=== PATIENT | male | born 1955 | race African-American/Black ===

== ENCOUNTER 2016-12-17 09:19 | Emergency (ER) | payer BC ==
[2016-12-17] MEDS ORDERED: AMLODIPINE BESYLATE 5 MG TABLET PO ONE (09:50)
--- NOTE | 2016-12-17 10:46 | RADIOLOGY REPORT (SQ) ---
EXAM DESCRIPTION: CT HEAD WITHOUT COMPLETED DATE/TIME: 12/17/2016 10:31 am REASON FOR STUDY: keyes COMPARISON: None. TECHNIQUE: Axial images acquired through the brain without intravenous contrast. Images reviewed wi th bone, brain and subdural windows. Images stored on PACS. All CT scanners at this facility use dose modulation, iterative reconstruction, and/or weight based d osing when appropriate to reduce radiation dose to as low as reasonably achievable (ALARA). [facility]: Dose Right [facility]: CareDose [facility]: Dose Right [facility]: Teradose 4D [facility]: FarmDrop RADIATION DOSE: Up-to-date CT equipment and radiation dose reduction techniques were employed. CTDIv ol: 49.0 mGy. DLP: 881 mGy-cm. mGy. LIMITATIONS: None. FINDINGS: VENTRICLES: Normal size and contour. CEREBRUM: No masses. No hemorrhage. No midline shift. Normal lowry/white matter differentiation. N o evidence for acute infarction. CEREBELLUM: No masses. No hemorrhage. No alteration of density. No evidence for acute infarction. EXTRAAXIAL SPACES: No fluid collections. No masses. ORBITS AND GLOBE: No intra- or extraconal masses. Normal contour of globe without masses. CALVARIUM: No fracture. PARANASAL SINUSES: No fluid or mucosal thickening. SOFT TISSUES: No mass or hematoma. OTHER: No other significant finding. IMPRESSION: No acute intracranial abnormality. TECHNICAL DOCUMENTATION: JOB ID: [id number] Quality ID # [id number]: Final reports with documentation of one or more dose reduction techniques (e.g., Au tomated exposure control, adjustment of the mA and/or kV according to patient size, use of iterative reconstruction technique) 2010 [employer]- All Rights Reserved
[2016-12-17 11:30] LABS: ABSOLUTE BASOPHILS # (AUTO) 0.1 10^3/uL (0.0-0.2); ABSOLUTE EOSINOPHILS # (AUTO) 0.3 10^3/uL (0.0-0.6); ABSOLUTE LYMPHOCYTES (AUTO) 1.4 10^3/uL (0.5-4.7); ABSOLUTE MONOCYTES (AUTO) 0.5 10^3/uL (0.1-1.4); ABSOLUTE NEUT (AUTO) 2.3 10^3/uL (1.7-8.2); BASOPHILS % (AUTO) 1.1 % (0-2); EOSINOPHILS % (AUTO) 5.8 % (0-6); HEMATOCRIT 38.6 % (37.9-51.0); HEMOGLOBIN 12.7 g/dL (13.5-17.0); HGB HCT DIFFERENCE -0.5; LYMPHOCYTES % (AUTO) 31.7 % (13-45); MEAN CORPUSCULAR HEMOGLOBIN 28.4 pg (27.0-33.4); MEAN CORPUSCULAR HGB CONC 32.9 g/dL (32.0-36.0); MEAN CORPUSCULAR VOLUME 87 fl (80-97); MONOCYTES % (AUTO) 11.2 % (3-13); RED BLOOD COUNT 4.46 10^6/uL (4.35-5.55); RED CELL DISTRIBUTION WIDTH 13.7 % (11.5-14.0); SEGMENTED NEUTROPHILS % (AUTO) 50.2 % (42-78); WHITE BLOOD COUNT 4.6 10^3/uL (4.0-10.5)
[2016-12-17 11:35] LABS: APPEARANCE,URINE CLEAR; BILIRUBIN,URINE NEGATIVE (NEGATIVE); GLUCOSE, URINE NEGATIVE (NEGATIVE); KETONES,URINE NEGATIVE (NEGATIVE); LEUKOCYTE ESTERASE,URINE NEGATIVE (NEGATIVE); NITRITE,URINE NEGATIVE (NEGATIVE); PROTEIN,URINE NEGATIVE (NEGATIVE); URINE SPECIFIC GRAVITY 1.004; UROBILINOGEN,URINE NEGATIVE mg/dL (<2.0)
[2016-12-17 11:44] LABS: ALANINE AMINOTRANSFERASE 80 U/L (21-72); ALBUMIN 4.4 g/dL (3.5-5.0); ALKALINE PHOSPHATASE 61 U/L (38-126); ANION GAP 9 (5-19); ASPARTATE AMINO TRANSFERASE 67 U/L (17-59); BILIRUBIN,DIRECT 0.3 mg/dL (0.0-0.4); BILIRUBIN,TOTAL 0.6 mg/dL (0.2-1.3); BLOOD UREA NITROGEN 37 mg/dL (7-20); CALCIUM 9.9 mg/dL (8.4-10.2); CARBON DIOXIDE 28 mmol/L (22-30); CHLORIDE 107 mmol/L (98-107); CREATININE RESULT 2.23 mg/dL (0.52-1.25); GLUCOSE 85 mg/dL (75-110); POTASSIUM 5.1 mmol/L (3.6-5.0); SODIUM 144.4 mmol/L (137-145); TOTAL PROTEIN 7.4 g/dL (6.3-8.2)
--- NOTE | 2016-12-17 13:29 | ER Document Report ---
ED General - General Chief Complaint: Feet Swelling Stated Complaint: LEG PAIN,SWOLLEN ANKLE Time Seen by Provider: 12/17/16 09:48 Mode of Arrival: Ambulatory Information source: Patient Notes: Patient reports mild diffuse headache and bilateral leg swelling for several days. Symptoms are constant. Nothing makes symptoms better or worse. There is no radiation of symptoms. The headache is throbbing. No nausea or vomiting. No chest pain or shortness of breath. TRAVEL OUTSIDE OF THE [place] IN LAST 30 DAYS: No - Related Data Allergies/Adverse Reactions: No Known Allergies Allergy (Verified 12/17/16 09:32) Past Medical History - General Information source: Patient - Social History Smoking Status: Former Smoker Chew tobacco use (# tins/day): No Frequency of alcohol use: Heavy Drug Abuse: None Family History: Reviewed & Not Pertinent Patient has suicidal ideation: No Patient has homicidal ideation: No Renal/ Medical History: Denies: Hx Peritoneal Dialysis Surgical Hx: Other Review of Systems - Review of Systems Constitutional: denies: Chills, Fever Cardiovascular: denies: Chest pain, Palpitations Respiratory: denies: Cough, Short of breath Gastrointestinal: denies: Diarrhea, Vomiting -: Yes All other systems reviewed and negative Physical Exam - Vital signs Vitals: Temp Pulse Resp BP Pulse Ox 98.1 F 52 L 20 199/96 H 100 12/17/16 09:33 12/17/16 09:33 12/17/16 09:33 12/17/16 09:33 12/17/16 09:33 Interpretation: Hypertensive - General General appearance: Appears well, Alert - HEENT Head: Normocephalic, Atraumatic Eyes: Normal Pupils: PERRL - Respiratory Respiratory status: No respiratory distress Chest status: Nontender Breath sounds: Normal Chest palpation: Normal - Cardiovascular Rhythm: Regular Heart sounds: Normal auscultation Murmur: No - Abdominal Inspection: Normal Distension: No distension Bowel sounds: Normal Tenderness: Nontender Organomegaly: No organomegaly - Back Back: Normal, Nontender - Extremities General upper extremity: Normal inspection, Nontender, Normal color, Normal ROM , Normal temperature General lower extremity: Nontender, Edema, Normal color, Normal ROM, Normal temperature, Normal weight bearing. No: Georgina's sign - Neurological Neuro grossly intact: Yes Cognition: Normal Orientation: AAOx4 [place] Coma Scale Eye Opening: Spontaneous [place] Coma Scale Verbal: Oriented [place] Coma Scale Motor: Obeys Commands [place] Coma Scale Total: 15 Speech: Normal Motor strength normal: LUE, RUE, LLE, RLE Sensory: Normal - Psychological Associated symptoms: Normal affect, Normal mood - Skin Skin Temperature: Warm Skin Moisture: Dry Skin Color: Normal Course - Re-evaluation Re-evalutation: 12/17/16 13:26 Discussed the case with Dr. Villaseñor, and the service specialist. He will follow the patient up in the office. Patient is also been arranged for follow-up with primary care. It is unlikely patient is going to be able to be seen within the next couple of days so patient will return to the emergency department for recheck of his potassium and creatinine in 2 days. - Vital Signs Vital signs: Temp Pulse Resp BP Pulse Ox 98.1 F 52 L 20 199/96 H 100 12/17/16 09:33 12/17/16 09:33 12/17/16 09:33 12/17/16 09:33 12/17/16 09:33 - Laboratory Result Diagrams: 12/17/16 11:10 12/17/16 11:10 Laboratory results interpreted by me: 12/17/16 12/17/16 12/17/16 11:10 11:10 11:10 Hgb 12.7 L Potassium 5.1 H BUN 37 H Creatinine 2.23 H Est GFR ( Amer) 37 L Est GFR (Non-Af Amer) 30 L AST 67 H ALT 80 H Urine Blood SMALL H - Diagnostic Test Radiology reviewed: Image reviewed, Reports reviewed - neg head CT Discharge - Discharge Clinical Impression: Poorly-controlled hypertension, Renal insufficiency Condition: Stable Disposition: HOME, SELF-CARE Instructions: Hypertension in ([facility]), Kidney Function Abnormality ([facility] ) Additional Instructions: Please call Dr. Zacarias and Dr. Villaseñor as soon as possible to arrange follow-up. Return here in 2 days for recheck of your kidney function and a recheck of your blood pressure. Prescriptions: Clonidine HCl 0.1 mg PO BID #30 tablet Furosemide [Lasix 20 mg Tablet] 20 mg PO BID 3 Days Forms: Elevated Blood Pressure, Return to Work Referrals: Ziyad VILLASEÑOR MD [ACTIVE STAFF] - Follow up as needed MARIE ZACARIAS MD [ACTIVE STAFF] - Follow up as needed
[2016-12-17] MEDS ORDERED: SODIUM POLYSTYRENE SULFONATE 15 GM/60 ML PO ONE (13:31)
[2016-12-17 13:51] VITALS: BP 196/85
== END 2016-12-17 13:55 | disposition home or self-care (01) ==
LOC: ER 09:19
DX: I10 Essential (primary) hypertension (principal); N28.9 Disorder of kidney and ureter, unspecified; R51 Headache; R60.0 Localized edema; Z87.891 Personal history of nicotine dependence
CPT/HCPCS: 36415; 70450; 80053; 81001; 85025; 99284

== ENCOUNTER 2016-12-19 10:50 | Emergency (ER) | payer BC ==
[2016-12-19] MEDS ORDERED: CLONIDINE HCL 0.1 MG TABLET PO ONE (11:23)
--- NOTE | 2016-12-19 11:24 | ER Document Report ---
HPI - HPI Patient complains to provider of: Recheck Onset: Other - 2 days ago Onset/Duration: Better Quality of pain: No pain Pain Level: Denies Context: Patient states that he was evaluated in the emergency department 2 days ago for lower extremity swelling. Patient states that he had lab work that showed an abnormal potassium as well as renal function test. Patient was advised to follow-up with her primary doctor as well as [facility] door liner. Patient states he does have an appointment with his primary doctor in 3 days. 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 Patient did not get his prescriptions for clonidine or Lasix filled as he just got paid today. Patient states he does plan to get his medications filled today. Patient states that the swelling has improved. Patient denies any chest pain, shortness of breath, abdominal pain, or headache. Associated Symptoms: denies: Chest pain, Nonproductive cough, Productive cough, Headache Exacerbated by: Denies Relieved by: Denies Similar symptoms previously: Yes Recently seen / treated by doctor: Yes - ROS ROS below otherwise negative: Yes Systems Reviewed and Negative: Yes All other systems reviewed and negative - NEURO Neurology: DENIES: Headache - CARDIOVASCULAR Cardiovascular: DENIES: Chest pain - RESPIRATORY Respiratory: DENIES: Trouble Breathing, Coughing - GASTROINTESTINAL Gastrointestinal: DENIES: Abdominal Pain - DERM Skin Color: Normal Skin Problems: None Past Medical History - General Information source: Patient - Social History Smoking Status: Current Every Day Smoker Frequency of alcohol use: Heavy Drug Abuse: None 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 IN LAST 30 DAYS: No - HEENT HEENT: Atraumatic, Normocephalic - NECK Neck: Normal Inspection, Supple - RESPIRATORY Respiratory: Breath Sounds Normal, No Respiratory Distress O2 Sat by Pulse Oximetry: 98 - CARDIOVASCULAR Cardiovascular: Regular Rate, Regular Rhythm, No Murmur - BACK Back: Normal Inspection. negative: CVA Tenderness-Right, CVA Tenderness-Left - MUSCULOSKELETAL/EXTREMETIES Musculoskeletal/Extremeties: MAKAREEM FROM, No Edema - NEURO Level of Consciousness: Awake, Alert, Appropriate Motor/Sensory: No Motor Deficit - DERM Integumentary: Warm, Dry, No Rash Course - Re-evaluation Re-evalutation: 12/19/16 12:[address] Powers regarding patient presentation and evaluation. Reviewed patient's diagnostic tests from previous ER visit as well as today. Does not recommend changing the medications at this time. Does not recommend any additional testing. Advises having patient follow up with Dr. Webb on Thursday as planned and encouraged outpatient follow-up with Dr. Platt as well. Patient states that he has an appointment Thursday with Dr. Webb and plans to call Dr. Platt today to set up an appointment. - Vital Signs Vital signs: Temp Pulse Resp BP Pulse Ox 97.7 F 58 L 18 166/94 H 98 12/19/16 10:56 12/19/16 10:56 12/19/16 10:56 12/19/16 10:56 12/19/16 10:56 - Laboratory Result Diagrams: 12/19/16 11:45 12/19/16 11:45 Laboratory results interpreted by me: 12/19/16 12:43 Labs- Entire Visit 12/19/16 12/19/16 11:45 11:45 WBC 5.4 RBC 4.11 L Hgb 11.7 L Hct 35.2 L MCV 86 MCH 28.5 MCHC 33.3 RDW 13.4 Plt Count 186 Seg Neutrophils % 51.8 Lymphocytes % 31.5 Monocytes % 10.2 Eosinophils % 5.7 Basophils % 0.8 Absolute Neutrophils 2.8 Absolute Lymphocytes 1.7 Absolute Monocytes 0.6 Absolute Eosinophils 0.3 Absolute Basophils 0.0 Sodium 144.1 Potassium 5.1 H Chloride 107 Carbon Dioxide 31 H Anion Gap 6 BUN 23 H Creatinine 2.16 H Est GFR ( Amer) 38 L Est GFR (Non-Af Amer) 31 L Glucose 82 Calcium 9.4 Total Bilirubin 0.3 Direct Bilirubin 0.3 Indirect Bilirubin Not Reportable Neonat Total Bilirubin Not Reportable AST 45 ALT 64 Alkaline Phosphatase 61 Total Protein 6.8 Albumin 4.0 reviewed labs from pt's previous ER visit Discharge - Discharge Clinical Impression: Renal insufficiency, Poorly-controlled hypertension Condition: Stable Disposition: HOME, SELF-CARE Instructions: High Blood Pressure, Requiring Treatment ([facility]), Kidney Function Abnormality ([facility]) Additional Instructions: Return immediately for any new or worsening symptoms Followup with Dr Webb on Thursday as planned Follow up with Dr Platt, call today for a follow up appointment Get your medications filled today and take as prescribed Forms: Elevated Blood Pressure, Return to Work Referrals: Ziyad PLATT MD [ACTIVE STAFF] - Follow up in 3-5 days MARIE WEBB MD [ACTIVE STAFF] - 12/22/16
[2016-12-19 12:01] LABS: ABSOLUTE EOSINOPHILS # (AUTO) 0.3 10^3/uL (0.0-0.6); ABSOLUTE LYMPHOCYTES (AUTO) 1.7 10^3/uL (0.5-4.7); ABSOLUTE MONOCYTES (AUTO) 0.6 10^3/uL (0.1-1.4); ABSOLUTE NEUT (AUTO) 2.8 10^3/uL (1.7-8.2); BASOPHILS % (AUTO) 0.8 % (0-2); EOSINOPHILS % (AUTO) 5.7 % (0-6); HEMATOCRIT 35.2 % (37.9-51.0); HEMOGLOBIN 11.7 g/dL (13.5-17.0); HGB HCT DIFFERENCE -0.1; LYMPHOCYTES % (AUTO) 31.5 % (13-45); MEAN CORPUSCULAR HEMOGLOBIN 28.5 pg (27.0-33.4); MEAN CORPUSCULAR HGB CONC 33.3 g/dL (32.0-36.0); MEAN CORPUSCULAR VOLUME 86 fl (80-97); MONOCYTES % (AUTO) 10.2 % (3-13); RED BLOOD COUNT 4.11 10^6/uL (4.35-5.55); RED CELL DISTRIBUTION WIDTH 13.4 % (11.5-14.0); SEGMENTED NEUTROPHILS % (AUTO) 51.8 % (42-78); WHITE BLOOD COUNT 5.4 10^3/uL (4.0-10.5)
[2016-12-19 12:13] LABS: ALANINE AMINOTRANSFERASE 64 U/L (21-72); ALKALINE PHOSPHATASE 61 U/L (38-126); ANION GAP 6 (5-19); ASPARTATE AMINO TRANSFERASE 45 U/L (17-59); BILIRUBIN,DIRECT 0.3 mg/dL (0.0-0.4); BILIRUBIN,TOTAL 0.3 mg/dL (0.2-1.3); BLOOD UREA NITROGEN 23 mg/dL (7-20); CALCIUM 9.4 mg/dL (8.4-10.2); CARBON DIOXIDE 31 mmol/L (22-30); CHLORIDE 107 mmol/L (98-107); CREATININE RESULT 2.16 mg/dL (0.52-1.25); GLUCOSE 82 mg/dL (75-110); POTASSIUM 5.1 mmol/L (3.6-5.0); SODIUM 144.1 mmol/L (137-145); TOTAL PROTEIN 6.8 g/dL (6.3-8.2)
[2016-12-19 13:57] VITALS: BP 174/94
== END 2016-12-19 13:10 | disposition home or self-care (01) ==
LOC: ER 10:50
DX: N28.9 Disorder of kidney and ureter, unspecified (principal); I10 Essential (primary) hypertension; T46.5X6A Underdosing of other antihypertensive drugs, initial encounter; T50.1X6A Underdosing of loop [high-ceiling] diuretics, initial encounter; Z91.120 Patient's intentional underdosing of medication regimen due to financial hardship; Z91.14 Patient's other noncompliance with medication regimen; F17.200 Nicotine dependence, unspecified, uncomplicated
CPT/HCPCS: 36415; 80053; 85025; 99283

== ENCOUNTER 2017-02-21 10:06 | Inpatient (IN) | payer BC ==
--- NOTE | 2017-02-21 10:20 | ER Document Report ---
ED General - General Chief Complaint: Abnormal Lab Results Stated Complaint: ABNORMAL LABS Time Seen by Provider: 02/21/17 10:12 Mode of Arrival: Ambulatory Information source: Patient Notes: 61-year-old male received call from the lab stating he had potassium of 7. Patient is asymptomatic TRAVEL OUTSIDE OF THE [place] IN LAST 30 DAYS: No - Related Data Allergies/Adverse Reactions: No Known Allergies Allergy (Verified 02/21/17 10:11) Past Medical History - Social History Smoking Status: Former Smoker Chew tobacco use (# tins/day): No Frequency of alcohol use: Social Drug Abuse: None, Marijuana Family History: Reviewed & Not Pertinent - Past Medical History Cardiac Medical History: Reports: Hx Hypertension Renal/ Medical History: Denies: Hx Peritoneal Dialysis Physical Exam - Vital signs Vitals: Temp Pulse Resp BP Pulse Ox 97.9 F 52 L 16 160/84 H 100 02/21/17 10:12 02/21/17 10:12 02/21/17 10:12 02/21/17 10:12 02/21/17 10:12 Course - Vital Signs Vital signs: Temp Pulse Resp BP Pulse Ox 97.9 F 52 L 16 160/84 H 100 02/21/17 10:12 02/21/17 10:12 02/21/17 10:12 02/21/17 10:12 02/21/17 10:12
--- NOTE | 2017-02-21 10:31 | ER Document Report ---
ED Medical Screen (RME) - General Chief Complaint: Abnormal Lab Results Stated Complaint: ABNORMAL LABS Time Seen by Provider: 02/21/17 10:12 Mode of Arrival: Ambulatory Information source: Patient Notes: 61-year-old male received call from the lab stating he had potassium of 7. Patient is asymptomatic I have greeted and performed a rapid initial assessment of this patient. A comprehensive ED assessment and evaluation of the patient, analysis of test results and completion of the medical decision making process will be conducted by additional ED providers. PHYSICAL EXAMINATION: GENERAL: Well-appearing, well-nourished and in no acute distress. HEAD: Atraumatic, normocephalic. EYES: Pupils equal round extraocular movements intact, conjunctiva are normal. ENT: Nares patent NECK: Normal range of motion LUNGS: No respiratory distress Musculoskeletal: Normal range of motion NEUROLOGICAL: Normal speech, normal gait. PSYCH: Normal mood, normal affect. SKIN: Warm, Dry, normal turgor, no rashes or lesions noted. TRAVEL OUTSIDE OF THE [place] IN LAST 30 DAYS: No - Related Data Allergies/Adverse Reactions: No Known Allergies Allergy (Verified 02/21/17 10:11) Past Medical History - Social History Chew tobacco use (# tins/day): No Frequency of alcohol use: Social Drug Abuse: None, Marijuana - Past Medical History Cardiac Medical History: Reports: Hx Hypertension Renal/ Medical History: Denies: Hx Peritoneal Dialysis - Immunizations History of Influenza Vaccine for 02/2017 - 07/2017 Season: Refused Physical Exam - Vital signs Vitals: Temp Pulse Resp BP Pulse Ox 97.9 F 52 L 16 160/84 H 100 02/21/17 10:12 02/21/17 10:12 02/21/17 10:12 02/21/17 10:12 02/21/17 10:12 Course - Vital Signs Vital signs: Temp Pulse Resp BP Pulse Ox 97.9 F 52 L 16 160/84 H 100 02/21/17 10:12 02/21/17 10:12 02/21/17 10:12 02/21/17 10:12 02/21/17 10:12
[2017-02-21 10:58] LABS: ABSOLUTE BASOPHILS # (AUTO) 0.1 10^3/uL (0.0-0.2); ABSOLUTE EOSINOPHILS # (AUTO) 0.3 10^3/uL (0.0-0.6); ABSOLUTE LYMPHOCYTES (AUTO) 1.1 10^3/uL (0.5-4.7); ABSOLUTE MONOCYTES (AUTO) 0.5 10^3/uL (0.1-1.4); ABSOLUTE NEUT (AUTO) 3.2 10^3/uL (1.7-8.2); BASOPHILS % (AUTO) 1.2 % (0-2); EOSINOPHILS % (AUTO) 6.3 % (0-6); HEMATOCRIT 32.2 % (37.9-51.0); HGB HCT DIFFERENCE 0.8; MEAN CORPUSCULAR HEMOGLOBIN 28.4 pg (27.0-33.4); MEAN CORPUSCULAR HGB CONC 34.1 g/dL (32.0-36.0); MEAN CORPUSCULAR VOLUME 83 fl (80-97); MONOCYTES % (AUTO) 9.7 % (3-13); RED BLOOD COUNT 3.87 10^6/uL (4.35-5.55); RED CELL DISTRIBUTION WIDTH 13.4 % (11.5-14.0); SEGMENTED NEUTROPHILS % (AUTO) 60.8 % (42-78); WHITE BLOOD COUNT 5.2 10^3/uL (4.0-10.5)
[2017-02-21] MEDS: NORMAL SALINE 1000 ML 1,000 ML IV PRN ×2 (10:58→10:59)
[2017-02-21 11:11] LABS: ALANINE AMINOTRANSFERASE 44 U/L (21-72); ALBUMIN 4.6 g/dL (3.5-5.0); ALKALINE PHOSPHATASE 62 U/L (38-126); ANION GAP 10 (5-19); ASPARTATE AMINO TRANSFERASE 30 U/L (17-59); BILIRUBIN,DIRECT 0.3 mg/dL (0.0-0.4); BILIRUBIN,TOTAL 0.6 mg/dL (0.2-1.3); BLOOD UREA NITROGEN 41 mg/dL (7-20); CALCIUM 10.3 mg/dL (8.4-10.2); CARBON DIOXIDE 25 mmol/L (22-30); CHLORIDE 110 mmol/L (98-107); CREATININE RESULT 2.71 mg/dL (0.52-1.25); GLUCOSE 85 mg/dL (75-110); MAGNESIUM 1.9 mg/dL (1.6-2.3); SODIUM 145.2 mmol/L (137-145); TOTAL PROTEIN 7.6 g/dL (6.3-8.2)
[2017-02-21] MEDS ORDERED: ALBUTEROL SULFATE 0.083% NEB 2.5 MG/3 ML AMPUL NEB ONE (11:15)
[2017-02-21] MEDS ORDERED: SODIUM POLYSTYRENE SULFONATE 15 GM/60 ML PO ONE (11:15)
[2017-02-21] MEDS ORDERED: DEXTROSE 50%-WATER 25 GM/50 ML DISP.SYRIN IV ONE (11:15)
[2017-02-21] MEDS ORDERED: INSULIN REG, HUMAN 100 UNIT/ML 3 ML VIAL (PYX) IV ONE (11:15)
[2017-02-21] MEDS ORDERED: CALCIUM GLUCONATE 1000 MG/10 ML INJ IV ONE (11:15)
[2017-02-21 13:56] LABS: ANION GAP 13 (5-19); BLOOD UREA NITROGEN 38 mg/dL (7-20); CARBON DIOXIDE 20 mmol/L (22-30); CHLORIDE 114 mmol/L (98-107); CREATININE RESULT 2.55 mg/dL (0.52-1.25); GLUCOSE 74 mg/dL (75-110); SODIUM 146.6 mmol/L (137-145)
[2017-02-21 14:09] LABS: POTASSIUM 4.8 mmol/L (3.6-5.0)
--- NOTE | 2017-02-21 14:21 | ER Document Report ---
ED General - General Chief Complaint: Abnormal Lab Results Stated Complaint: ABNORMAL LABS Time Seen by Provider: 02/21/17 10:12 Mode of Arrival: Ambulatory TRAVEL OUTSIDE OF THE [place] IN LAST 30 DAYS: No - HPI Patient complains to provider of: Hyperkalemia Notes: Patient coming in for evaluation of hyperkalemia. Patient had outpatient laboratory studies done by his PCP states his potassium was 7 patient was encouraged to come to the ER. Patient has a history of renal insufficiency patient otherwise denies any other symptoms denies any changes in diet denies any changes in his medications. Patient is resting comfortably upon my evaluation. - Related Data Allergies/Adverse Reactions: No Known Allergies Allergy (Verified 02/21/17 10:11) Home Medications: Current Home Medications Amlodipine Besylate [Norvasc 5 mg Tablet] 5 mg PO DAILY 02/21/17 [History] Clonidine HCl [Catapres 0.1 mg Tablet] 0.1 mg PO Q12 02/21/17 [History] Tamsulosin HCl [Flomax 0.4 mg Cap.sr] 0.4 mg PO DAILY 02/21/17 [History] Past Medical History - General Information source: Patient - Social History Smoking Status: Former Smoker Chew tobacco use (# tins/day): No Frequency of alcohol use: Social Drug Abuse: None, Marijuana Family History: Reviewed & Not Pertinent - Past Medical History Cardiac Medical History: Reports: Hx Hypertension Renal/ Medical History: Denies: Hx Peritoneal Dialysis Review of Systems - Review of Systems Constitutional: Other - Hyperkalemia EENT: No symptoms reported Cardiovascular: No symptoms reported Respiratory: No symptoms reported Gastrointestinal: No symptoms reported Genitourinary: No symptoms reported Male Genitourinary: No symptoms reported Musculoskeletal: No symptoms reported Skin: No symptoms reported Hematologic/Lymphatic: No symptoms reported Neurological/Psychological: No symptoms reported Physical Exam - Vital signs Vitals: Temp Pulse Resp BP Pulse Ox 97.9 F 52 L 16 160/84 H 100 02/21/17 10:12 02/21/17 10:12 02/21/17 10:12 02/21/17 10:12 02/21/17 10:12 Interpretation: Normal - General General appearance: Appears well, Alert - HEENT Head: Normocephalic, Atraumatic Eyes: Normal Pupils: PERRL - Respiratory Respiratory status: No respiratory distress Chest status: Nontender Breath sounds: Normal Chest palpation: Normal - Cardiovascular Rhythm: Regular Heart sounds: Normal auscultation Murmur: No - Abdominal Inspection: Normal Distension: No distension Bowel sounds: Normal Tenderness: Nontender Organomegaly: No organomegaly - Back Back: Normal, Nontender - Extremities General upper extremity: Normal inspection, Nontender, Normal color, Normal ROM , Normal temperature General lower extremity: Normal inspection, Nontender, Normal color, Normal ROM , Normal temperature, Normal weight bearing. No: Georgina's sign - Neurological Neuro grossly intact: Yes Cognition: Normal Orientation: AAOx4 [place] Coma Scale Eye Opening: Spontaneous [place] Coma Scale Verbal: Oriented [place] Coma Scale Motor: Obeys Commands [place] Coma Scale Total: 15 Speech: Normal Motor strength normal: LUE, RUE, LLE, RLE Sensory: Normal - Psychological Associated symptoms: Normal affect, Normal mood - Skin Skin Temperature: Warm Skin Moisture: Dry Skin Color: Normal Course - Re-evaluation Re-evalutation: 02/21/17 15:53 Patient is EKG shows signs of hyperkalemia with peaked T waves. Patient was started on hyper K medications insulin dextrose albuterol also was given a dose of Kayexalate also was given calcium. Repeat EKG showed improvement in T waves. Laboratory studies returned showing potassium 6 IV fluids was continued. Discussed with covering PCP Dr. Grey who agrees with admission at this time till treatment for hyperkalemia - Vital Signs Vital signs: Temp Pulse Resp BP Pulse Ox 97.9 F 52 L 21 H 167/79 H 100 02/21/17 10:12 02/21/17 10:12 02/21/17 14:01 02/21/17 14:01 02/21/17 14:01 - Laboratory Result Diagrams: 02/21/17 10:35 02/21/17 13:24 Laboratory results interpreted by me: 02/21/17 02/21/17 02/21/17 10:35 10:35 13:24 RBC 3.87 L Hgb 11.0 L Hct 32.2 L Eosinophils % 6.3 H Sodium 145.2 H 146.6 H Potassium 6.0 H* Chloride 110 H 114 H Carbon Dioxide 20 L BUN 41 H 38 H Creatinine 2.71 H 2.55 H Est GFR ( Amer) 29 L 31 L Est GFR (Non-Af Amer) 24 L 26 L Glucose 74 L Calcium 10.3 H Discharge - Discharge Clinical Impression: Hyperkalemia Condition: Good Disposition: ADMITTED OBSERVATION Admitting Provider: Jon Grey Unit Admitted: Telemetry
[2017-02-21] MEDS ORDERED: AMLODIPINE BESYLATE 5 MG TABLET PO ONE (18:00)
[2017-02-21 19:04] LABS: APPEARANCE,URINE CLEAR; BILIRUBIN,URINE NEGATIVE (NEGATIVE); GLUCOSE, URINE NEGATIVE (NEGATIVE); KETONES,URINE NEGATIVE (NEGATIVE); LEUKOCYTE ESTERASE,URINE NEGATIVE (NEGATIVE); NITRITE,URINE NEGATIVE (NEGATIVE); PROTEIN,URINE NEGATIVE (NEGATIVE); URINE SPECIFIC GRAVITY 1.005; UROBILINOGEN,URINE NEGATIVE mg/dL (<2.0)
[2017-02-21 20:33] LABS: ANION GAP 7 (5-19); BLOOD UREA NITROGEN 38 mg/dL (7-20); CALCIUM 9.8 mg/dL (8.4-10.2); CARBON DIOXIDE 23 mmol/L (22-30); CHLORIDE 111 mmol/L (98-107); CREATININE RESULT 2.63 mg/dL (0.52-1.25); GLUCOSE 89 mg/dL (75-110); POTASSIUM 4.4 mmol/L (3.6-5.0)
[2017-02-21] MEDS: CLONIDINE HCL 0.1 MG TABLET PO SCH (21:31)
--- NOTE | 2017-02-21 22:09 | PDOC H&P ---
History of Present Illness Admission Date/PCP: 02/21/17 17:41 MARIE ZACARIAS MD Patient complains of: Hyperkalemia History of Present Illness: TOBY COLLINS is a 61 year old male patient of Dr Zacarias who was directed to the ED after [facility] called in critical serum potassium level about 7.0 with serum creatinine over 2.0. Patient has history of hypertension and claimed compliance with his medication and dietary restriction but admitted to eating Banana and drink orange juice regularly. He denied any palpitation, chest pain, dizziness, flank pain or blood in his urine. He admitted to intermittent headache. Patient denied alcohol, former smoker and admitted to marijuana recreational usage. Patient reported that water medicine was just added to his anti hypertensive medication regimen. Past Medical History Cardiac Medical History: Reports: Hypertension Social History Smoking Status: Former Smoker Drugs: Marijuana Family History Family History: Reviewed & Not Pertinent Parental Family History Reviewed: Yes Children Family History Reviewed: Yes Sibling(s) Family History Reviewed.: Yes Medication/Allergy Home Medications: Amlodipine Besylate [Norvasc 5 mg Tablet] 5 mg PO DAILY 02/21/17 Clonidine HCl [Catapres 0.1 mg Tablet] 0.1 mg PO Q12 02/21/17 Tamsulosin HCl [Flomax 0.4 mg Cap.sr] 0.4 mg PO DAILY 02/21/17 Allergies/Adverse Reactions: No Known Allergies Allergy (Verified 02/21/17 10:11) Review of Systems Constitutional: ABSENT: chills, fever(s), headache(s), weight gain, weight loss Eyes: ABSENT: visual disturbances Ears: ABSENT: hearing changes Nose, Mouth, and Throat: PRESENT: headache(s) - intermittently Cardiovascular: ABSENT: chest pain, dyspnea on exertion, edema, orthropnea, palpitations Respiratory: ABSENT: cough, hemoptysis Gastrointestinal: ABSENT: abdominal pain, constipation, diarrhea, hematemesis, hematochezia, nausea, vomiting Genitourinary: ABSENT: dysuria, hematuria Musculoskeletal: ABSENT: joint swelling Integumentary: ABSENT: rash, wounds Neurological: ABSENT: abnormal gait, abnormal speech, confusion, dizziness, focal weakness, syncope Psychiatric: ABSENT: anxiety, depression, homidical ideation, suicidal ideation Endocrine: ABSENT: cold intolerance, heat intolerance, menstrual abnormalities, polydipsia, polyuria Hematologic/Lymphatic: ABSENT: easy bleeding, easy bruising, lymphadenopathy Allergic/Immunologic: ABSENT: seasonal rhinorrhea Physical Exam Vital Signs: Temp Pulse Resp BP Pulse Ox 98.0 F 52 L 16 166/84 H 100 02/21/17 19:52 02/21/17 19:52 02/21/17 19:52 02/21/17 19:52 02/21/17 19:52 Intake & Output 02/20/17 02/21/17 02/22/17 06:59 06:59 06:59 Intake Total 690 Balance 690 General appearance: PRESENT: no acute distress, cooperative Head exam: PRESENT: atraumatic, normocephalic Eye exam: PRESENT: conjunctiva pink, EOMI, PERRLA. ABSENT: scleral icterus Ear exam: PRESENT: normal external ear exam Mouth exam: PRESENT: moist Teeth exam: PRESENT: poor dentation Throat exam: ABSENT: post pharyngeal erythema, tonsillar erythema, tonsillar exudate, tonsillogmegaly, other Neck exam: PRESENT: full ROM. ABSENT: carotid bruit, JVD, lymphadenopathy, thyromegaly Respiratory exam: PRESENT: clear to auscultation tessa Cardiovascular exam: PRESENT: RRR. ABSENT: diastolic murmur, rubs, systolic murmur Pulses: PRESENT: normal dorsalis pedis pul, +2 pedal pulses bilateral Vascular exam: PRESENT: normal capillary refill. ABSENT: pallor GI/Abdominal exam: PRESENT: normal bowel sounds, soft. ABSENT: distended, guarding, mass, organolmegaly, rebound, tenderness Rectal exam: PRESENT: deferred Extremities exam: ABSENT: pedal edema Musculoskeletal exam: PRESENT: normal inspection Neurological exam: PRESENT: alert, awake, oriented to person, oriented to place , oriented to time, oriented to situation, CN II-XII grossly intact. ABSENT: motor sensory deficit Psychiatric exam: PRESENT: appropriate affect, normal mood. ABSENT: homicidal ideation, suicidal ideation Skin exam: PRESENT: dry, intact, warm. ABSENT: cyanosis, rash Results Laboratory Results: 02/21/17 20:05 02/21/17 02/21/17 18:42 20:05 Sodium 141.0 Potassium 4.4 Chloride 111 H Carbon Dioxide 23 Anion Gap 7 BUN 38 H Creatinine 2.63 H Est GFR ( Amer) 30 L Est GFR (Non-Af Amer) 25 L Glucose 89 Calcium 9.8 Urine Color STRAW Urine Appearance CLEAR Urine pH 5.0 Ur Specific [place] 1.005 Urine Protein NEGATIVE Urine Glucose (UA) NEGATIVE Urine Ketones NEGATIVE Urine Blood SMALL H Urine Nitrite NEGATIVE Ur Leukocyte Esterase NEGATIVE Urine WBC (Auto) 2 Urine RBC (Auto) 1 Assessment & Plan - Diagnosis (1) Hyperkalemia Is this a current diagnosis for this admission?: Yes Plan: See admitting covering attending physician orders. (2) CKD (chronic kidney disease) stage 3, GFR 30-59 ml/min Is this a current diagnosis for this admission?: Yes Plan: See admitting covering attending physician orders. (3) HTN (hypertension) Qualifiers: Hypertension type: essential hypertension Qualified Code(s): I10 - Essential (primary) hypertension Is this a current diagnosis for this admission?: Yes Plan: See admitting covering attending physician orders. (4) BPH with obstruction/lower urinary tract symptoms Is this a current diagnosis for this admission?: Yes Plan: See admitting covering attending physician orders. - Time Time Spent: 50 to 70 Minutes Medications reviewed and adjusted accordingly: Yes Anticipated discharge: Home Within: within 24 hours - Plan Summary Plan Summary: See admitting covering attending physician orders.
[2017-02-21] MEDS ORDERED: ACETAMINOPHEN 325 MG TABLET PO PRN (22:14)
--- NOTE | 2017-02-21 23:46 | RADIOLOGY REPORT (SQ) ---
EXAM DESCRIPTION: U/S RETROPERITON (RENAL/AORTA) COMPLETED DATE/TIME: 02/21/2017 7:48 pm REASON FOR STUDY: Renal failure with Hyperkalemia, HTN COMPARISON: None. TECHNIQUE: Dynamic and static grayscale images acquired of the kidneys and bladder and recorded on P ACS. Additional selected color Doppler and spectral images recorded. LIMITATIONS: None. FINDINGS: RIGHT KIDNEY: Normal size. Normal echogenicity. No solid or suspicious masses. Mildly pro minent renal pelvis. No calcifications. LEFT KIDNEY: Normal size. Normal echogenicity. No solid or suspicious masses. Mildly prominent kristi l pelvis. No calcifications. BLADDER: Mildly distended demonstrating layering debris. No masses. OTHER FINDINGS: No other significant finding. IMPRESSION: Mildly prominent renal pelves without evidence of ureteric obstruction. Mildly distende d bladder demonstrating layering debris. TECHNICAL DOCUMENTATION: JOB ID: [id number] [employer]- All Rights Reserved
[2017-02-22 07:26] LABS: ANION GAP 12 (5-19); BLOOD UREA NITROGEN 36 mg/dL (7-20); CARBON DIOXIDE 22 mmol/L (22-30); CHLORIDE 112 mmol/L (98-107); CREATININE RESULT 2.68 mg/dL (0.52-1.25); GLUCOSE 94 mg/dL (75-110); POTASSIUM 5.3 mmol/L (3.6-5.0); SODIUM 145.8 mmol/L (137-145)
[2017-02-22] MEDS ORDERED: AMLODIPINE BESYLATE 5 MG TABLET PO SCH (10:00)
[2017-02-22] MEDS: CLONIDINE HCL 0.1 MG TABLET PO SCH (10:04)
[2017-02-22] MEDS: TAMSULOSIN HCL 0.4 MG CAP.SR.24H PO SCH (10:04)
--- NOTE | 2017-02-22 12:18 | PDOC PROGRESS REPORT ---
Subjective Progress Note for:: 02/22/17 Subjective:: Patient self administer his home medication this morning at about 9:30am! He denied any chest pain or difficulty with breathing. No nausea or vomiting. No abdominal pain. No fever or chills. Urine output fairly normal. Physical Exam Vital Signs: Temp Pulse Resp BP Pulse Ox 97.8 F 48 L 15 172/86 H 100 02/22/17 07:41 02/22/17 07:41 02/22/17 07:41 02/22/17 07:41 02/22/17 07:41 Intake & Output 02/21/17 02/22/17 02/23/17 06:59 06:59 06:59 Intake Total 1175 Balance 1175 General appearance: PRESENT: no acute distress, cooperative Head exam: PRESENT: atraumatic, normocephalic Eye exam: PRESENT: conjunctiva pink Mouth exam: PRESENT: moist Teeth exam: PRESENT: poor dentation Respiratory exam: PRESENT: clear to auscultation tessa Cardiovascular exam: PRESENT: RRR. ABSENT: diastolic murmur, rubs, systolic murmur Vascular exam: PRESENT: normal capillary refill. ABSENT: pallor GI/Abdominal exam: PRESENT: normal bowel sounds, soft. ABSENT: distended, guarding, mass, organolmegaly, rebound, tenderness Musculoskeletal exam: PRESENT: normal inspection Neurological exam: PRESENT: alert, awake, oriented to person, oriented to place , oriented to time, oriented to situation, CN II-XII grossly intact. ABSENT: motor sensory deficit Psychiatric exam: PRESENT: appropriate affect, normal mood. ABSENT: homicidal ideation, suicidal ideation Results Laboratory Results: 02/22/17 06:45 02/21/17 02/21/17 02/22/17 18:42 20:05 06:45 Sodium 141.0 145.8 H Potassium 4.4 5.3 H Chloride 111 H 112 H Carbon Dioxide 23 22 Anion Gap 7 12 BUN 38 H 36 H Creatinine 2.63 H 2.68 H Est GFR ( Amer) 30 L 30 L Est GFR (Non-Af Amer) 25 L 24 L Glucose 89 94 Calcium 9.8 10.0 Urine Color STRAW Urine Appearance CLEAR Urine pH 5.0 Ur Specific [place] 1.005 Urine Protein NEGATIVE Urine Glucose (UA) NEGATIVE Urine Ketones NEGATIVE Urine Blood SMALL H Urine Nitrite NEGATIVE Ur Leukocyte Esterase NEGATIVE Urine WBC (Auto) 2 Urine RBC (Auto) 1 Impressions: Renal Ultrasound 02/21/17 00:00 IMPRESSION: Mildly prominent renal pelves without evidence of ureteric obstruction. Mildly distended bladder demonstrating layering debris. Assessment & Plan - Diagnosis (1) Hyperkalemia Is this a current diagnosis for this admission?: Yes (2) CKD (chronic kidney disease) stage 3, GFR 30-59 ml/min Is this a current diagnosis for this admission?: Yes (3) HTN (hypertension) Qualifiers: Hypertension type: essential hypertension Qualified Code(s): I10 - Essential (primary) hypertension Is this a current diagnosis for this admission?: Yes (4) BPH with obstruction/lower urinary tract symptoms Is this a current diagnosis for this admission?: Yes (5) Bradyarrhythmia Is this a current diagnosis for this admission?: Yes Plan: See covering attending physician orders. - Time Time Spent with patient: 25-34 minutes Medications reviewed and adjusted accordingly: Yes Anticipated discharge: Home Within: Other - Plan Summary Plan Summary: Patient will receive repeat dosing with Kayexalate 60mg x 1 dose with repeat BMP at 6pm to evaluate need for further dosing. Increase Amlodipine to 10 mg po daily. Start on Finasteride 0.5mg po daily based on BPH and renal US findings.
[2017-02-22] MEDS ORDERED: SODIUM POLYSTYRENE SULFONATE 15 GM/60 ML PO ONE (13:30)
[2017-02-22] MEDS ORDERED: AMLODIPINE BESYLATE 5 MG TABLET PO ONE (13:30)
[2017-02-22 13:36] LABS: CREATINE KINASE MB 4.67 ng/mL (<4.55)
[2017-02-22 13:39] LABS: TROPONIN I < 0.012 ng/mL
[2017-02-22] MEDS: FINASTERIDE 5 MG TABLET PO SCH (13:45)
--- NOTE | 2017-02-22 16:57 | EKG REPORT ---
SEVERITY:- ABNORMAL ECG - SINUS BRADYCARDIA CONSIDER ANTEROSEPTAL INFARCT TALL T, CONSIDER METABOLIC/ISCHEMIC ABNRM : Confirmed by: Lin Santos MD 22-Feb-2017 16:56:15
--- NOTE | 2017-02-22 16:57 | EKG REPORT ---
SEVERITY:- ABNORMAL ECG - SINUS ARRHYTHMIA, RATE [id number] MULTIPLE VENTRICULAR PREMATURE COMPLEXES : Confirmed by: Lin Santos MD 22-Feb-2017 16:56:09
[2017-02-23] MEDS: AMLODIPINE BESYLATE 10 MG TABLET PO SCH (09:15)
[2017-02-23] MEDS: TAMSULOSIN HCL 0.4 MG CAP.SR.24H PO SCH (09:15)
[2017-02-23] MEDS: FINASTERIDE 5 MG TABLET PO SCH (13:37)
--- NOTE | 2017-02-23 14:25 | PDOC PROGRESS REPORT ---
Subjective Progress Note for:: 02/23/17 Subjective:: Patient is currently doing well. Patient was admitted because of the elevated potassium and chronic kidney diseasePatient's denied any chest pain denied any shortness of breathVisit was given Kayexalate Physical Exam Vital Signs: Temp Pulse Resp BP Pulse Ox 98.0 F 64 16 181/90 H 100 02/23/17 11:40 02/23/17 11:40 02/23/17 11:40 02/23/17 11:40 02/23/17 11:40 Intake & Output 02/22/17 02/23/17 02/24/17 06:59 06:59 06:59 Intake Total 1175 1760 Balance 1175 1760 General appearance: PRESENT: no acute distress, well-developed, well-nourished Head exam: PRESENT: atraumatic, normocephalic Eye exam: PRESENT: conjunctiva pink, EOMI, PERRLA. ABSENT: scleral icterus Ear exam: PRESENT: normal external ear exam Mouth exam: PRESENT: moist, tongue midline Neck exam: PRESENT: full ROM. ABSENT: carotid bruit, JVD, lymphadenopathy, thyromegaly Respiratory exam: PRESENT: clear to auscultation tessa Cardiovascular exam: PRESENT: RRR. ABSENT: diastolic murmur, rubs, systolic murmur Pulses: PRESENT: normal dorsalis pedis pul, +2 pedal pulses bilateral Vascular exam: PRESENT: normal capillary refill GI/Abdominal exam: PRESENT: normal bowel sounds, soft. ABSENT: distended, guarding, mass, organolmegaly, rebound, tenderness Rectal exam: PRESENT: deferred Neurological exam: PRESENT: alert, awake, oriented to person, oriented to place , oriented to time, oriented to situation, CN II-XII grossly intact. ABSENT: motor sensory deficit Psychiatric exam: PRESENT: appropriate affect, normal mood. ABSENT: homicidal ideation, suicidal ideation Skin exam: PRESENT: dry, intact, warm. ABSENT: cyanosis, rash Results Laboratory Results: 02/22/17 06:45 02/22/17 02/22/17 12:45 12:45 Creatine Kinase 439 H CK-MB (CK-2) 4.67 H Troponin I < 0.012 Impressions: Renal Ultrasound 02/21/17 00:00 IMPRESSION: Mildly prominent renal pelves without evidence of ureteric obstruction. Mildly distended bladder demonstrating layering debris. Assessment & Plan - Diagnosis (1) Hyperkalemia Is this a current diagnosis for this admission?: Yes Plan: Due to the underlying chronic kidney disease with the noncompliance of the diet (2) CKD (chronic kidney disease) stage 3, GFR 30-59 ml/min Is this a current diagnosis for this admission?: Yes Plan: Currently all stable will get the nephrology consult (3) HTN (hypertension) Qualifiers: Hypertension type: essential hypertension Qualified Code(s): I10 - Essential (primary) hypertension Is this a current diagnosis for this admission?: Yes Plan: Continues to current medication (4) BPH with obstruction/lower urinary tract symptoms Is this a current diagnosis for this admission?: Yes Plan: Continues to Flomax (5) Bradyarrhythmia Is this a current diagnosis for this admission?: Yes Plan: We will get the echocardiogram - Time Time Spent with patient: 15-24 minutes Medications reviewed and adjusted accordingly: Yes Anticipated discharge: Home Within: within 24 hours - Inpatient Certification Medical Necessity: Need Close Monitoring Due to Risk of Patient Decompensation Post Hospital Care: D/[employer] Documentation - Plan Summary Plan Summary: Discussed with the patient about the all that is reports
--- NOTE | 2017-02-23 19:46 | PDOC CONSULTATION ---
Consultation Consult Date: 02/23/17 Consult reason:: CKD History of Present Illness Admission Date/PCP: 02/21/17 17:41 History of Present Illness: TOBY COLLINS is a 61 year old male patient of Dr Webb who was directed to the ED after [facility] called in critical serum potassium level about 7.0 with serum creatinine over 2.0. Patient has history of hypertension and CKD stage 4. Denies history of diabetes. He has missed his past appointments with me at Dr. Platt' office. He is on a high potassium diet with a lot of oranges, OJ and bananas in his diet. Since arriving he has received kayexalate twice and his potassiums has been in the lower 5s to upper 4s. He has also received dietary counseling. He denies any chest pain, heart palpitations, SOB, nausea, vomiting, or muscle weakness. Past Medical History Cardiac Medical History: Reports: Hypertension-primary Renal/ Medical History: Reports: Chronic Kidney Disease Stage IV, Hyperkalemia Psychiatric Medical History: Reports: Substance Abuse Past Surgical History Past Surgical History: Reports: None, Other Social History Smoking Status: Former Smoker Drugs: Marijuana Family History Parental Family History Reviewed: Yes - mother has diabetes and maternal grandmother was on dialysis Children Family History Reviewed: NA Sibling(s) Family History Reviewed.: NA Medication/Allergy Home Medications: Amlodipine Besylate [Norvasc 10 mg Tablet] 10 mg PO DAILY #30 tablet 02/24/17 Tamsulosin HCl [Flomax 0.4 mg Cap.sr] 0.4 mg PO DAILY 3 Days #30 02/24/17 Allergies/Adverse Reactions: No Known Allergies Allergy (Verified 02/21/17 10:11) Review of Systems Constitutional: ABSENT: chills, fever(s), weakness Nose, Mouth, and Throat: PRESENT: headache(s) Cardiovascular: PRESENT: edema. ABSENT: chest pain, dyspnea on exertion, orthropnea, palpitations Respiratory: ABSENT: cough, dyspnea Gastrointestinal: PRESENT: constipation. ABSENT: abdominal pain, diarrhea, nausea, vomiting Genitourinary: PRESENT: dysuria - -occassionally Musculoskeletal: ABSENT: deformity, joint swelling, muscle weakness Integumentary: ABSENT: diaphoresis, pruritus Neurological: ABSENT: numbness, tingling, weakness Psychiatric: ABSENT: anxiety, depression Endocrine: ABSENT: polydipsia, polyuria Physical Exam Vital Signs: Temp Pulse Resp BP Pulse Ox 98.0 F 83 18 149/91 H 100 02/23/17 15:40 02/23/17 15:40 02/23/17 15:40 02/23/17 15:40 02/23/17 15:40 Intake & Output 02/22/17 02/23/17 02/24/17 06:59 06:59 06:59 Intake Total 1175 1760 1053 Balance 1175 1760 1053 General appearance: PRESENT: no acute distress, well-developed, well-nourished Head exam: PRESENT: atraumatic, normocephalic Mouth exam: PRESENT: moist, tongue midline Neck exam: PRESENT: full ROM. ABSENT: JVD, thyromegaly, tracheal deviation Respiratory exam: PRESENT: clear to auscultation tessa. ABSENT: accessory muscle use, chest wall tenderness, crackles, rales, rhonchi Cardiovascular exam: PRESENT: RRR, +S1, +S2 GI/Abdominal exam: PRESENT: normal bowel sounds, soft. ABSENT: ascites, distended, guarding, mass, rebound, rigid, tenderness Extremities exam: ABSENT: joint swelling, pedal edema, tenderness Musculoskeletal exam: PRESENT: normal inspection. ABSENT: deformity, tenderness Neurological exam: PRESENT: alert, awake, oriented to person, oriented to place , oriented to time, oriented to situation Psychiatric exam: PRESENT: appropriate affect, normal mood Skin exam: PRESENT: dry, intact, normal color. ABSENT: rash Results Laboratory Results: 02/22/17 06:45 02/22/17 02/22/17 12:45 12:45 Creatine Kinase 439 H CK-MB (CK-2) 4.67 H Troponin I < 0.012 Impressions: Renal Ultrasound 02/21/17 00:00 IMPRESSION: Mildly prominent renal pelves without evidence of ureteric obstruction. Mildly distended bladder demonstrating layering debris. Assessment & Plan - Diagnosis (1) Hyperkalemia Is this a current diagnosis for this admission?: Yes Plan: Advised on proper low potassium diet, will follow up as outpatient and provide him with a low potassium diet sheet. (2) CKD (chronic kidney disease) stage 3, GFR 30-59 ml/min Is this a current diagnosis for this admission?: Yes Plan: Most likely due to poorly controlled from noncompliance with his medications. Ultrasound that was done ruled out kidney disease due to obstruction or irregular kidneys like ADPKD. Will have him flow up in two weeks to further evaluate. Reenforced proper diet, hydration and medication compliance. (3) HTN (hypertension) Qualifiers: Hypertension type: essential hypertension Qualified Code(s): I10 - Essential (primary) hypertension Is this a current diagnosis for this admission?: Yes Plan: currently ranging around, advised on a low sodium diet. Will monitor as outpatient and adjust medications accordingly.
--- NOTE | 2017-02-23 20:03 | PDOC CONSULTATION ---
Consultation Consult Date: 02/23/17 Attending physician:: MARIE WEBB Consult reason:: Bradycardia History of Present Illness Admission Date/PCP: 02/21/17 17:41 Patient complains of: Fatigue and tiredness History of Present Illness: TOBY COLLINS is a 61 year old male patient of Dr Webb who was directed to the ED after [facility] called in critical serum potassium level about 7.0 with serum creatinine over 2.0. Patient has history of hypertension and CKD stage 4. Denies history of diabetes. He has missed his past appointments with me at Dr. Platt' office. He is on a high potassium diet with a lot of oranges, OJ and bananas in his diet. Since arriving he has received kayexalate twice and his potassiums has been in the lower 5s to upper 4s. He has also received dietary counseling. He denies any chest pain, heart palpitations, SOB, nausea, vomiting, or muscle weakness. Patient continues to have mild sinus bradycardia but has been asymptomatic. I was therefore asked to evaluate this patient. Past Medical History Cardiac Medical History: Reports: Hypertension Psychiatric Medical History: Reports: Substance Abuse Past Surgical History Past Surgical History: Reports: None, Other Social History Information Source: Patient Smoking Status: Former Smoker Drugs: Marijuana - Advance Directive Resuscitation Status: Full Code Surrogate healthcare decision maker:: Patient's girlfriend by the name of Jody is the surrogate decision-maker. Family History Family History: Hypertension Parental Family History Reviewed: Yes Children Family History Reviewed: Yes Sibling(s) Family History Reviewed.: Yes Medication/Allergy Home Medications: Amlodipine Besylate [Norvasc 5 mg Tablet] 5 mg PO DAILY 02/21/17 Clonidine HCl [Catapres 0.1 mg Tablet] 0.1 mg PO Q12 02/21/17 Tamsulosin HCl [Flomax 0.4 mg Cap.sr] 0.4 mg PO DAILY 02/21/17 Allergies/Adverse Reactions: No Known Allergies Allergy (Verified 02/21/17 10:11) Review of Systems Review of Systems: Please see history of present illness and past medical history as wall. Constitutional: No fever or chills reported. Head : No recent chronic headaches, recent head injury. Eyes: No recent eye pain, diplopia, redness, discharge, acute visual changes. Ears: No recent chronic ear pain, acute hearing loss, ear discharge. Oral cavity: No recent ulcerations, bleeding, oral cavity discomfort. Neck: No recent acute neck pain reported. Hematologic: No recent easy bruising or bleeding or hematologic malignancy reported. Lymphatic: No recent lymphatic malignancy, chronic lymphadenopathy reported yet Cardiovascular system review: See history of present illness. Respiratory system review: No recent chronic cough, hemoptysis, blood clots in the lungs reported. Mild Shortness of breath on exertion Gastrointestinal system review: Negative for any recent acute or chronic abdominal pain, hematemesis, melena, recent change in bowel habits. Genitourinary system review: No recent acute or chronic hematuria, flank pain, UTI etc. reported. Skin system review: Negative for any recent abnormal bruising, no rash, no pruritus reported. Neurologic: No prior history of strokes, mini strokes, seizure disorder. Psychologic: No history of major psychosis or major depression reported. Patient reports minor depression. Patient also reports chronic sleep deprivation, this is because of his work schedule. Musculoskeletal: Minor aches and pains reported. No acute joint swelling reported. Endocrine: No recent polyuria, polydipsia, recent heat or cold intolerance. Physical Exam Vital Signs: Temp Pulse Resp BP Pulse Ox 98.0 F 54 L 18 149/91 H 100 02/23/17 15:40 02/23/17 19:00 02/23/17 15:40 02/23/17 15:40 02/23/17 15:40 Intake & Output 02/22/17 02/23/17 02/24/17 06:59 06:59 06:59 Intake Total 1175 1760 1053 Balance 1175 1760 1053 Exam: GENERAL: well-nourished and in no acute distress. Alert and oriented x3 HEAD: Atraumatic, normocephalic. Essentially edentulous on the 2 front teeth noted. EYES: Pupils equal round and reactive to light, extraocular movements intact, sclera anicteric, conjunctiva are normal. ENT: TMs normal, nares patent, oropharynx clear without exudates. Moist mucous membranes. No oral ulcerations or bleeding gums noted NECK: supple without lymphadenopathy. Trachea is central. No cervical or axillary lymphadenopathy noted. Carotids are 2+, JVD WNL LUNGS: Respiration seems nonlabored, no significant accessory muscle action noted. Breath sounds clear to auscultation bilaterally and equal noted. No wheezes rales or rhonchi noted. No significant dullness noted on percussion. CHEST: Palpation of the chest wall shows no significant chest wall tenderness. No other significant abnormalities noted. 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 ABDOMEN: Soft, no significant tenderness appreciated, normoactive bowel sounds. No guarding, no rebound. No rigidity noted . No masses appreciated. EXTREMITIES: Pedal pulses are 1-2+, no calf tenderness noted. No clubbing or cyanosis. Negative pedal edema noted NEUROLOGICAL: Focused neurological exam showed no significant neurologic deficit. Normal speech, no focal weakness appreciated. PSYCH: Normal mood, normal affect. Judgment and insight within normal limits. SKIN: No significant ecchymosis, rash, ulcerations or signs of pruritus noted. MUSCULOSKELETAL EXAM: No significant joint swelling noted. Results Laboratory Results: 02/22/17 06:45 02/22/17 02/22/17 12:45 12:45 Creatine Kinase 439 H CK-MB (CK-2) 4.67 H Troponin I < 0.012 EKG Comments: Shows sinus bradycardia, no acute ST-T wave changes noted Impressions: Renal Ultrasound 02/21/17 00:00 IMPRESSION: Mildly prominent renal pelves without evidence of ureteric obstruction. Mildly distended bladder demonstrating layering debris. Assessment & Plan - Diagnosis (1) Bradyarrhythmia Is this a current diagnosis for this admission?: Yes (2) CKD (chronic kidney disease) stage 3, GFR 30-59 ml/min Is this a current diagnosis for this admission?: Yes (3) HTN (hypertension) Qualifiers: Hypertension type: essential hypertension Qualified Code(s): I10 - Essential (primary) hypertension Is this a current diagnosis for this admission?: Yes (4) Hyperkalemia Is this a current diagnosis for this admission?: Yes - Notes Notes: Bradycardia arrhythmia: Possibly leftover effect of hyper kalemia. This is likely to improve. Patient may benefit from event monitor. Chronic kidney disease: Currently stable. Patient being monitored by crown blocker. Hypertension: Stable. Patient will benefit from a sleep evaluation. Patient does have a high arched palate and flat midface. Patient also has Mallampati class IV oral exam. Patient would definitely benefit from better sleep hygiene. Hyperkalemia: Currently stable. Patient to report any further problems. - Time Time Spent: 30 to 50 Minutes - CODE STATUS was discussed, patient remains full code. Surrogate decision-maker unchanged. Multiple medical problems were addressed. More than 50% of the time spent coordinating care, discussing management plans with involved caregivers. Management plans discussed with involved personnels. Medical decision making was of moderate to high complexity , patient's has multiple comorbidities. Medications reviewed and adjusted accordingly: Yes
--- NOTE | 2017-02-23 20:24 | XCELERA REPORT ---
[address] [address] Transthoracic Echocardiogram Report Name: TOBY COLLINS Age: 61 yrs Gender: Male : 1955 Patient Status: Inpatient Patient Location: [address] [place] [address] Study Date: 02/23/2017 11:13 AM Height: 72 in Weight: 157 lb BSA: 1.9 m2 Procedure: A complete two-dimensional transthoracic echocardiogram was performed (2D, M-mode, spectral and color flow Doppler). The study was technically adequate with some images being suboptimal in quality. Reason For Study: Bradyarrhythmia, Uncontrolled HTN, CKD Ordering Physician: MIGUEL ANGEL MARTINEZ Performed By: Mechelle Woo Interpretation Summary The left ventricular ejection fraction is normal. The left ventricle is grossly normal size. LV diastolic function could not be adequately assessed. Not all wall segments were well visualized. The right ventricle is grossly normal size. The right ventricular systolic function is normal. The right atrium is normal in size The left atrial size is normal. There is a trace to mild amount of mitral regurgitation There is no mitral valve stenosis. No aortic regurgitation is present. There is no aortic valve stenosis There is a trace or physiologic amount of tricuspid regurgitation Tricuspid regurgitation jet envelope not well defined to measure RV systolic pressure accurately. The aortic root is not well visualized but is probably normal size. The inferior vena cava appeared normal and decreased > 50% with respiration (RAP 5-10 mmHg) There is no pericardial effusion. MMode/2D Measurements & Calculations RVDd: 2.7 cm LVIDd: 5.1 cm FS: 31.7 % Ao root diam: 3.4 cm IVSd: 0.90 cm LVIDs: 3.5 cm EDV(Teich): 121.6 ml LVPWd: 0.96 cmESV(Teich): 49.3 ml Ao root area: 9.0 cm2 EF(Teich): 59.5 % LA dimension: 3.4 cm LVOT diam: 2.3 cm LVOT area: 4.1 cm2 Doppler Measurements & Calculations MV E max cr: MV P1/2t max cr: Ao V2 max: LV V1 max P.2 cm/sec 53.7 cm/sec 140.9 cm/sec 4.4 mmHg MV A max cr: MV P1/2t: 67.0 msec Ao max PG: LV V1 max: 39.5 cm/sec MVA(P1/2t): 3.3 cm2 7.9 mmHg 105.3 cm/sec MV E/A: 1.3 MV dec slope: HENRY(V,D): 3.1 cm2 234.8 cm/sec2 PA V2 max: TR max cr: 75.5 cm/sec 229.1 cm/sec PA max PG: TR max P.0 mmHg 2.3 mmHg Left Ventricle The left ventricle is grossly normal size. There is borderline concentric left ventricular hypertrophy. The left ventricular ejection fraction is normal. LV diastolic function could not be adequately assessed. Not all wall segments were well visualized. Wall motion cannot be accurately commented on, but no definite regional wall motion abnormalities noted. Right Ventricle The right ventricle is grossly normal size. There is normal right ventricular wall thickness. The right ventricular systolic function is normal. Atria The right atrium is normal in size. The left atrial size is normal. Interarterial septum not well visualized and not well dopplered. Cannot comment on ASD/PFO presence. Mitral Valve The mitral valve is grossly normal. There is no mitral valve stenosis. There is a trace to mild amount of mitral regurgitation. Aortic Valve The aortic valve is grossly normal. There is no aortic valve stenosis. No aortic regurgitation is present. Tricuspid Valve The tricuspid valve is not well visualized, but is grossly normal. There is no tricuspid stenosis. There is a trace or physiologic amount of tricuspid regurgitation. Tricuspid regurgitation jet envelope not well defined to measure RV systolic pressure accurately. Pulmonic Valve The pulmonic valve is not well visualized. Great Vessels The aortic root is not well visualized but is probably normal size. The inferior vena cava appeared normal and decreased > 50% with respiration (RAP 5-10 mmHg). Effusions There is no pericardial effusion. : MIGUEL ANGEL MARTINEZ > Les Ovalle
[2017-02-24 05:13] LABS: ABSOLUTE EOSINOPHILS # (AUTO) 0.5 10^3/uL (0.0-0.6); ABSOLUTE LYMPHOCYTES (AUTO) 1.4 10^3/uL (0.5-4.7); ABSOLUTE MONOCYTES (AUTO) 0.5 10^3/uL (0.1-1.4); ABSOLUTE NEUT (AUTO) 2.9 10^3/uL (1.7-8.2); BASOPHILS % (AUTO) 0.8 % (0-2); EOSINOPHILS % (AUTO) 8.9 % (0-6); HEMATOCRIT 32.9 % (37.9-51.0); HEMOGLOBIN 11.1 g/dL (13.5-17.0); HGB HCT DIFFERENCE 0.4; LYMPHOCYTES % (AUTO) 27.2 % (13-45); MEAN CORPUSCULAR HEMOGLOBIN 27.9 pg (27.0-33.4); MEAN CORPUSCULAR HGB CONC 33.9 g/dL (32.0-36.0); MEAN CORPUSCULAR VOLUME 82 fl (80-97); MONOCYTES % (AUTO) 8.8 % (3-13); SEGMENTED NEUTROPHILS % (AUTO) 54.3 % (42-78); WHITE BLOOD COUNT 5.3 10^3/uL (4.0-10.5)
[2017-02-24 05:28] LABS: ANION GAP 13 (5-19); BLOOD UREA NITROGEN 34 mg/dL (7-20); CALCIUM 10.1 mg/dL (8.4-10.2); CARBON DIOXIDE 23 mmol/L (22-30); CHLORIDE 105 mmol/L (98-107); CREATININE RESULT 2.48 mg/dL (0.52-1.25); GLUCOSE 94 mg/dL (75-110); POTASSIUM 4.6 mmol/L (3.6-5.0)
[2017-02-24 08:22] VITALS: BP 151/91
[2017-02-24] MEDS ORDERED: INFLUENZA ADLT QUAD (36MOS+) 2017-18 VAC 0.5 ML SYR IM PRN (09:35)
[2017-02-24] MEDS: TAMSULOSIN HCL 0.4 MG CAP.SR.24H PO SCH (09:54)
[2017-02-24] MEDS: AMLODIPINE BESYLATE 10 MG TABLET PO SCH (09:54)
--- NOTE | 2017-02-24 13:55 | PDOC DISCHARGE SUMMARY ---
General - Admit/Disc Date/PCP Admission Date/Primary Care Provider: 02/22/17 12:20 Discharge Date: 02/24/17 - Discharge Diagnosis (1) Hyperkalemia Is this a current diagnosis for this admission?: Yes Summary: Currently all resolved (2) CKD (chronic kidney disease) stage 3, GFR 30-59 ml/min Is this a current diagnosis for this admission?: Yes Summary: Currently all stable follow-up outpatients Dr. Platt (3) HTN (hypertension) Is this a current diagnosis for this admission?: Yes Summary: Continues on Norvasc 10 mg currently hold the clonidine because of the bradycardia (4) BPH with obstruction/lower urinary tract symptoms Is this a current diagnosis for this admission?: Yes Summary: Continues to Flomax (5) Bradyarrhythmia Is this a current diagnosis for this admission?: Yes Summary: Follow with Dr. Ovalle as outpatient - Additional Information Resuscitation Status: Full Code Discharge Diet: Cardiac Discharge Activity: Activity As Tolerated Home Medications: Amlodipine Besylate [Norvasc 10 mg Tablet] 10 mg PO DAILY #30 tablet 02/24/17 Tamsulosin HCl [Flomax 0.4 mg Cap.sr] 0.4 mg PO DAILY 3 Days #30 02/24/17 History of Present Illness History of Present Illness: TOBY COLLINS is a 61 year old male There is a 61-year-old man physically sent to the emergency department with a potassium was more than 6 and acute renal failure and patient's was admitted and given IV fluid and Kayexalate in the nephrology was consulted Hospital Course Hospital Course: This 61-year-old male has outpatients lab was done his potassium was more than 6 and acute renal failure and patient was sent to the ER and admitting in the [facility] in the start the patient on Kayexalate and IV fluid and correct the potassium Dr. Platt was consulted and suggest to follow outpatient Muscles also have a history of the bradycardia and clonidine was stopped and echocardiogram was done was all stable and Dr. Ovalle was consulted and suggest a follow-up outpatients for the events monitor Patient also have a dietitian consult was done and all the appropriate educations was given because of the chronic kidney disease and a high potassium Patient is otherwise doing well p.o. intake is good. Patient's more the hallway without any problems Physical Exam Vital Signs: Temp Pulse Resp BP Pulse Ox 98.0 F 71 16 151/91 H 100 02/24/17 08:53 02/24/17 08:53 02/24/17 08:53 02/24/17 08:53 02/24/17 08:53 Intake & Output 02/23/17 02/24/17 02/25/17 06:59 06:59 06:59 Intake Total 1759 2052 Balance 1759 2052 General appearance: PRESENT: no acute distress, well-developed, well-nourished Head exam: PRESENT: atraumatic, normocephalic Eye exam: PRESENT: conjunctiva pink, EOMI, PERRLA. ABSENT: scleral icterus Ear exam: PRESENT: normal external ear exam Mouth exam: PRESENT: moist, tongue midline Neck exam: PRESENT: full ROM. ABSENT: carotid bruit, JVD, lymphadenopathy, thyromegaly Respiratory exam: PRESENT: clear to auscultation tessa Cardiovascular exam: PRESENT: RRR. ABSENT: diastolic murmur, rubs, systolic murmur Pulses: PRESENT: normal dorsalis pedis pul, +2 pedal pulses bilateral Vascular exam: PRESENT: normal capillary refill GI/Abdominal exam: PRESENT: normal bowel sounds, soft. ABSENT: distended, guarding, mass, organolmegaly, rebound, tenderness Rectal exam: PRESENT: deferred Extremities exam: ABSENT: pedal edema Musculoskeletal exam: PRESENT: ambulatory Neurological exam: PRESENT: alert, awake, oriented to person, oriented to place , oriented to time, oriented to situation, CN II-XII grossly intact. ABSENT: motor sensory deficit Psychiatric exam: PRESENT: appropriate affect, normal mood. ABSENT: homicidal ideation, suicidal ideation Skin exam: PRESENT: dry, intact, warm. ABSENT: cyanosis, rash Results Laboratory Results: 02/24/17 04:22 02/24/17 04:22 02/24/17 02/24/17 04:22 04:22 WBC 5.3 RBC 4.00 L Hgb 11.1 L Hct 32.9 L MCV 82 MCH 27.9 MCHC 33.9 RDW 13.0 Plt Count 200 Seg Neutrophils % 54.3 Lymphocytes % 27.2 Monocytes % 8.8 Eosinophils % 8.9 H Basophils % 0.8 Absolute Neutrophils 2.9 Absolute Lymphocytes 1.4 Absolute Monocytes 0.5 Absolute Eosinophils 0.5 Absolute Basophils 0.0 Sodium 141.0 Potassium 4.6 Chloride 105 Carbon Dioxide 23 Anion Gap 13 BUN 34 H Creatinine 2.48 H Est GFR ( Amer) 32 L Est GFR (Non-Af Amer) 27 L Glucose 94 Calcium 10.1 02/22/17 02/22/17 12:45 12:45 Creatine Kinase 439 H CK-MB (CK-2) 4.67 H Troponin I < 0.012 Impressions: Renal Ultrasound 02/21/17 00:00 IMPRESSION: Mildly prominent renal pelves without evidence of ureteric obstruction. Mildly distended bladder demonstrating layering debris. Plan Time Spent: Greater than 30 Minutes - Patient is discharged home with the stable conditions follow-up outpatients will repeat the Chem-7 and follow with the nephrology and cardiology
--- NOTE | 2017-02-24 19:32 | PDOC PROGRESS REPORT ---
Subjective Progress Note for:: 02/24/17 Subjective:: Patient seems to be doing better with gradual improvement. Pt is denying any chest arm or neck discomfort. Patient denying any PND, orthopnea. Patient denied any sustained palpitations, dizziness, syncope, near syncope. Patient denying any fever chills. Patient denying any other significant discomfort. Patient is maintaining sinus rhythm. Bradycardia seems improved Review of systems: Rest review of systems negative. Medications: Medications have been reviewed. Physical Exam Vital Signs: Temp Pulse Resp BP Pulse Ox 98.0 F 71 16 151/91 H 100 02/24/17 08:53 02/24/17 08:53 02/24/17 08:53 02/24/17 08:53 02/24/17 08:53 Intake & Output 02/23/17 02/24/17 02/25/17 06:59 06:59 06:59 Intake Total 1759 2052 Balance 1759 2052 Exam: GENERAL: well-nourished and in no acute distress. Alert and oriented x3 HEAD: Atraumatic, normocephalic. Edentulous except for 2 front teeth EYES: Pupils equal round and reactive to light, extraocular movements intact, sclera anicteric, conjunctiva are normal. ENT: TMs normal, nares patent, oropharynx clear without exudates. Moist mucous membranes. No oral ulcerations or bleeding gums noted NECK: supple without lymphadenopathy. Trachea is central. No cervical or axillary lymphadenopathy noted. Carotids are 2+, JVD WNL LUNGS: Respiration seems nonlabored, no significant accessory muscle action noted. Breath sounds clear to auscultation bilaterally and equal noted. No wheezes rales or rhonchi noted. No significant dullness noted on percussion. CHEST: Palpation of the chest wall shows no significant chest wall tenderness. No other significant abnormalities noted. 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 ABDOMEN: Soft, no significant tenderness appreciated, normoactive bowel sounds. No guarding, no rebound. No rigidity noted . No masses appreciated. EXTREMITIES: Pedal pulses are 1-2+, no calf tenderness noted. No clubbing or cyanosis. Negative pedal edema noted NEUROLOGICAL: Focused neurological exam showed no significant neurologic deficit. Normal speech, no focal weakness appreciated. PSYCH: Normal mood, normal affect. Judgment and insight within normal limits. SKIN: No significant ecchymosis, rash, ulcerations or signs of pruritus noted. MUSCULOSKELETAL EXAM: No significant joint swelling noted. Results Laboratory Results: 02/24/17 04:22 02/24/17 04:22 02/24/17 02/24/17 04:22 04:22 WBC 5.3 RBC 4.00 L Hgb 11.1 L Hct 32.9 L MCV 82 MCH 27.9 MCHC 33.9 RDW 13.0 Plt Count 200 Seg Neutrophils % 54.3 Lymphocytes % 27.2 Monocytes % 8.8 Eosinophils % 8.9 H Basophils % 0.8 Absolute Neutrophils 2.9 Absolute Lymphocytes 1.4 Absolute Monocytes 0.5 Absolute Eosinophils 0.5 Absolute Basophils 0.0 Sodium 141.0 Potassium 4.6 Chloride 105 Carbon Dioxide 23 Anion Gap 13 BUN 34 H Creatinine 2.48 H Est GFR ( Amer) 32 L Est GFR (Non-Af Amer) 27 L Glucose 94 Calcium 10.1 02/22/17 02/22/17 12:45 12:45 Creatine Kinase 439 H CK-MB (CK-2) 4.67 H Troponin I < 0.012 EKG Comments: Sinus rhythm without any significant tacky or bradycardia arrhythmias Impressions: Renal Ultrasound 02/21/17 00:00 IMPRESSION: Mildly prominent renal pelves without evidence of ureteric obstruction. Mildly distended bladder demonstrating layering debris. Assessment & Plan - Diagnosis (1) Bradyarrhythmia Is this a current diagnosis for this admission?: Yes (2) CKD (chronic kidney disease) stage 3, GFR 30-59 ml/min Is this a current diagnosis for this admission?: Yes (3) HTN (hypertension) Qualifiers: Hypertension type: essential hypertension Qualified Code(s): I10 - Essential (primary) hypertension Is this a current diagnosis for this admission?: Yes (4) Hyperkalemia Is this a current diagnosis for this admission?: Yes - Notes Notes: Bradycardia arrhythmia: Stable and improved. Patient may benefit from event monitor as an outpatient. Chronic kidney disease: Currently stable. Patient being monitored by film painter. Hypertension: Stable. Patient will benefit from a sleep evaluation. Patient does have a high arched palate and flat midface. Patient also has Mallampati class IV oral exam. Patient would definitely benefit from better sleep hygiene. Hyperkalemia: Currently stable. Patient to report any further problems. Patient being discharged today. Patient can follow-up with me if he wishes. - Time Time with patient: 15-25 minutes - CODE STATUS was discussed, patient remains full code. Surrogate decision-maker unchanged. Multiple medical problems were addressed. More than 50% of the time spent coordinating care, discussing management plans with involved caregivers. Management plans discussed with involved personnels. Medical decision making was of moderate complexity, patient's has multiple comorbidities. Medications reviewed and adjusted accordingly: Yes
== END 2017-02-24 10:30 | disposition home or self-care (01) | DRG 684 ==
LOC: ER 10:06 → EH 14:58 → UNDOADMOB 14:58 → EH 16:03 → 5 16:03 → EH 17:41 → OBSVTOIN 02-22 12:20
PROVIDERS: ADMIT Family Medicine; ATTEND Family Medicine
PROC: 3E0234Z Introduction of Serum, Toxoid and Vaccine into Muscle, Percutaneous Approach (ICD-10-PCS; principal; 2017-02-24)
DX: N17.9 Acute kidney failure, unspecified (principal); I12.9 Hypertensive chronic kidney disease with stage 1 through stage 4 chronic kidney disease, or unspecified chronic kidney disease; N18.4 Chronic kidney disease, stage 4 (severe); E87.5 Hyperkalemia; N40.1 Benign prostatic hyperplasia with lower urinary tract symptoms; R00.1 Bradycardia, unspecified; Z79.899 Other long term (current) drug therapy; Z23 Encounter for immunization; Z87.891 Personal history of nicotine dependence; Z91.11 Patient's noncompliance with dietary regimen; Z82.49 Family history of ischemic heart disease and other diseases of the circulatory system
CPT/HCPCS: 36415; 76770; 80048; 80053; 81001; 82550; 82553; 83735; 84484; 85025; 90686; 93005; 93010; 93306; 94640; 96361; 96374; 96375; 99285; G0378; J0610; J1815; J3490; J7030

== ENCOUNTER 2018-08-02 11:36 | Emergency (ER) | payer BC ==
[2018-08-02] MEDS ORDERED: MORPHINE SULFATE 10 MG/ML INJ IV ONE (12:41)
[2018-08-02] MEDS ORDERED: ONDANSETRON HCL INJ/PF 4 MG/2 ML SDV IV ONE (12:41)
--- NOTE | 2018-08-02 12:46 | ER Document Report ---
ED General - General Chief Complaint: Flank Pain Stated Complaint: FLANK PAIN Time Seen by Provider: 08/02/18 12:40 Primary Care Provider: MARIE ZACARIAS MD [Primary Care Provider] - Follow up tomorrow Mode of Arrival: Ambulatory Information source: Patient, [facility] Records Notes: 62-year-old male with hypertension presents with complaint of left flank pain that started 3 days prior to arrival. He describes it as a dull constant, aching pain without radiation. Patient denies prior similar symptoms, history of kidney stones. Patient does work at the [employer] and does do some lifting. Patient admits to difficulty with urination, dysuria, chills. Denies chest pain, shortness of breath, hematuria. TRAVEL OUTSIDE OF THE [place] IN LAST 30 DAYS: No - HPI Onset: Other Onset/Duration: Gradual, Persistent, Worse Quality of pain: Achy, Throbbing Severity: Moderate Associated symptoms: Body/muscle aches, Chills. denies: Chest pain, Fever, Headache, Leg swelling, Nausea, Vomiting, Shortness of breath Exacerbated by: Denies Relieved by: Other - Tylenol Similar symptoms previously: No Recently seen / treated by doctor: Yes - Related Data Allergies/Adverse Reactions: No Known Allergies Allergy (Verified 08/02/18 11:40) Past Medical History - General Information source: Patient, [facility] Records - She - Social History Smoking Status: Unknown if Ever Smoked Frequency of alcohol use: None Drug Abuse: Marijuana - They exactly Lives with: Alone Family History: Hypertension Patient has suicidal ideation: No Patient has homicidal ideation: No - Past Medical History Cardiac Medical History: Reports: Hx Hypertension Renal/ Medical History: Denies: Hx Peritoneal Dialysis Past Surgical History: Reports: Other Review of Systems - Review of Systems Notes: REVIEW OF SYSTEMS: CONSTITUTIONAL : Denies fever, chills, or sweats. Denies recent illness. Denies weight loss, recent hospitalizations. EENT: Denies visual changes, eye pain. Denies sore throat, oral lesions, difficulty swallowing. CARDIOVASCULAR: Denies chest pain. Denies palpitations. Denies lower extremity edema. RESPIRATORY: Denies cough. Denies shortness of breath, wheezing. GASTROINTESTINAL: Denies abdominal pain or distention. Denies nausea, vomiting, or diarrhea. Denies blood in vomitus, stools, or per rectum. Denies black, tarry stools. Denies constipation. GENITOURINARY: Denies frequency, blood in urine, testicular pain or penile discharge. MUSCULOSKELETAL: Denies neck pain or stiffness. Denies joint pain or swelling. SKIN: Denies rash, lesions or sores. HEMATOLOGIC : Denies easy bruising or bleeding. LYMPHATIC: Denies swollen glands. NEUROLOGICAL: Denies confusion or altered mental status. Denies loss of consciousness. Denies dizziness or lightheadedness. Denies headache. Denies weakness or paralysis. Denies problems difficulty with ambulation, slurred speech. Denies sensory loss, numbness, or tingling. Denies seizures. PSYCHIATRIC: Denies anxiety or stress. Denies depression, suicidal ideation, or Physical Exam - Vital signs Vitals: Temp Pulse Resp BP Pulse Ox 97.9 F 57 L 16 179/79 H 100 08/02/18 11:52 08/02/18 11:52 08/02/18 11:52 08/02/18 11:52 08/02/18 11:52 - Notes Notes: PHYSICAL EXAMINATION: GENERAL: Well-appearing, well-nourished and in no acute distress. HEAD: Atraumatic, normocephalic. EYES: Pupils equal round and reactive to light, extraocular movements intact, sclera anicteric, conjunctiva are normal. ENT: Nares patent, oropharynx clear without exudates. Moist mucous membranes. NECK: Normal range of motion, supple without lymphadenopathy LUNGS: Breath sounds clear to auscultation bilaterally and equal. No wheezes rales or rhonchi. HEART: Regular rate and rhythm without murmurs ABDOMEN: Soft, nontender, nondistended abdomen. No guarding, no rebound. No masses appreciated. Left CVA tenderness. Musculoskeletal: Normal range of motion, no pitting or edema. No cyanosis. NEUROLOGICAL: Cranial nerves grossly intact. Normal speech, normal gait. Norm al sensory, motor exams PSYCH: Normal mood, normal affect. SKIN: Warm, Dry, normal turgor, no rashes or lesions noted. Course - Re-evaluation Re-evalutation: Laboratory 08/02/18 08/02/18 08/02/18 13:40 13:40 13:40 WBC 5.5 RBC 3.49 L Hgb 9.8 L Hct 29.3 L MCV 84 MCH 28.2 MCHC 33.6 RDW 14.4 H Plt Count 221 Seg Neutrophils % 61.2 Lymphocytes % 23.4 Monocytes % 9.1 Eosinophils % 5.4 Basophils % 0.9 Absolute Neutrophils 3.4 Absolute Lymphocytes 1.3 Absolute Monocytes 0.5 Absolute Eosinophils 0.3 Absolute Basophils 0.0 Sodium 139.4 Potassium 5.7 H Chloride 112 H Carbon Dioxide 21 L Anion Gap 6 BUN 46 H Creatinine 3.44 H Est GFR ( Amer) 22 L Est GFR (Non-Af Amer) 18 L Glucose 86 Calcium 9.7 Total Bilirubin 0.3 Direct Bilirubin 0.1 Neonat Total Bilirubin Not Reportable Neonat Direct Bilirubin Not Reportable Neonat Indirect Bili Not Reportable AST 28 ALT 29 Alkaline Phosphatase 55 Total Protein 6.6 Albumin 3.8 Urine Color STRAW Urine Appearance CLEAR Urine pH 5.0 Ur Specific [place] 1.010 Urine Protein NEGATIVE Urine Glucose (UA) NEGATIVE Urine Ketones NEGATIVE Urine Blood NEGATIVE Urine Nitrite NEGATIVE Urine Bilirubin NEGATIVE Urine Urobilinogen NEGATIVE Ur Leukocyte Esterase NEGATIVE Urine WBC (Auto) 2 Urine RBC (Auto) 0 Urine Ascorbic Acid NEGATIVE Abdomen/Pelvis CT 08/02/18 12:40 IMPRESSION: 1. Enlarged prostate gland. 2. Distended urinary bladder possibly suggesting bladder outlet obstruction secondary to above. 3. Bilateral hydronephrosis and hydroureter likely secondary to 1 and 2 above. No ureteral stone is seen. Temp Pulse Resp BP Pulse Ox 97.8 F 55 L 16 155/89 H 99 08/02/18 16:33 08/02/18 16:33 08/02/18 16:33 08/02/18 16:33 08/02/18 16:33 62-year-old male with hypertension presents with complaint of left flank pain that started 3 days prior to arrival. He describes it as a dull constant, aching pain without radiation. Patient denies prior similar symptoms, history of kidney stones. Patient does work at the [employer] and does do some lifting. Patient admits to difficulty with urination, dysuria, chills. Denies chest pain, shortness of breath, hematuria. Vital signs reviewed upon arrival and patient is hypertensive but afebrile and not hypoxic. Patient does not appear toxic or dehydrated. He is in no acute distress. CT of the abdomen and pelvis was obtained and did show an enlarged prostate, a distended urinary bladder with bilateral hydronephrosis without urolithiasis. Patient's urinary outlet obstruction is likely secondary to his enlarged prostate. I did discuss Lawson catheterization with the patient who initially agrees but then declines. I did speak to the patient's primary care physician Dr. Zacarias who agrees to see the patient in the morning and arrange for quicker urology follow-up. Dr. Zacarias aware that patient refused Lawson catheter. 08/02/18 15:[address] Zacarias the patient's primary care physician who is in agreement with the plan to Place Lawson due to urinary obstruction, enlarged prostate. He will follow-up with the patient tomorrow. Currently patient has a urology appointment on August 25, [address] Zacarias states that he will get urology to see him this week. 08/02/18 15:45 Informed that patient is refusing Lawson catheter. I did have a conversation wit h him regarding that he will continue to have pain, urinary retention. He agreed and then has now disagreed. Patient still encouraged to follow-up with Dr. Zacarias in the morning. 08/02/18 21:53 - Vital Signs Vital signs: Temp Pulse Resp BP Pulse Ox 97.8 F 55 L 16 155/89 H 99 08/02/18 16:33 08/02/18 16:33 08/02/18 16:33 08/02/18 16:33 08/02/18 16:33 - Laboratory Result Diagrams: 08/02/18 13:40 08/02/18 13:40 Laboratory results interpreted by me: 08/02/18 08/02/18 13:40 13:40 RBC 3.49 L Hgb 9.8 L Hct 29.3 L RDW 14.4 H Potassium 5.7 H Chloride 112 H Carbon Dioxide 21 L BUN 46 H Creatinine 3.44 H Est GFR ( Amer) 22 L Est GFR (Non-Af Amer) 18 L - Diagnostic Test Radiology reviewed: Image reviewed, Reports reviewed Discharge - Discharge Clinical Impression: Urinary outflow obstruction, Bilateral hydronephrosis, BPH with obstruction/lower urinary tract symptoms Chronic kidney disease Qualifiers: Chronic kidney disease stage: stage 4 (severe) Qualified Code(s): N18.4 - Chronic kidney disease, stage 4 (severe) HTN (hypertension) Qualifiers: Hypertension type: unspecified Qualified Code(s): I10 - Essential (primary) hypertension Condition: Good Disposition: HOME, SELF-CARE Instructions: Prostatic Hypertrophy ([facility]), Urinary Retention ([facility]) Additional Instructions: You have refused a Lawson catheter. This is going to be required due to your enlarged prostate and inability to urinate. I will let your primary care physician now that you have refused the catheter. Please follow-up with your primary care physician Dr. Zacarias tomorrow. Please call the office first thing in the morning for your appointment time. Follow up with your [id number] hours for further care or return to the ED IMMEDIATELY if symptoms worsen or you have any concerns. If you cannot afford to follow up with your primary care physician a list of low cost clinics have been provided at the end of your discharge papers as well. Most prescribed medications have multiple side effects. The safest thing to do is when filling your prescription speak to your pharmacist regarding possible interactions with your normal home medications and over the counter medications such as Ibuprofen, Tylenol, Benadryl. If you experience any symptoms that cause you discomfort or concern you should discontinue the medication immediately and return to the emergency room or call your primary care physician. Forms: Elevated Blood Pressure, Return to Work Referrals: MARIE ZACARIAS MD [Primary Care Provider] - Follow up tomorrow
[2018-08-02 13:54] LABS: ABSOLUTE EOSINOPHILS # (AUTO) 0.3 10^3/uL (0.0-0.6); ABSOLUTE LYMPHOCYTES (AUTO) 1.3 10^3/uL (0.5-4.7); ABSOLUTE MONOCYTES (AUTO) 0.5 10^3/uL (0.1-1.4); ABSOLUTE NEUT (AUTO) 3.4 10^3/uL (1.7-8.2); BASOPHILS % (AUTO) 0.9 % (0-2); EOSINOPHILS % (AUTO) 5.4 % (0-6); HEMATOCRIT 29.3 % (37.9-51.0); HEMOGLOBIN 9.8 g/dL (13.5-17.0); LYMPHOCYTES % (AUTO) 23.4 % (13-45); MEAN CORPUSCULAR HEMOGLOBIN 28.2 pg (27.0-33.4); MEAN CORPUSCULAR HGB CONC 33.6 g/dL (32.0-36.0); MEAN CORPUSCULAR VOLUME 84 fl (80-97); MONOCYTES % (AUTO) 9.1 % (3-13); PLATELET COUNT 221 10^3/uL (150-450); RED BLOOD COUNT 3.49 10^6/uL (4.35-5.55); RED CELL DISTRIBUTION WIDTH 14.4 % (11.5-14.0); SEGMENTED NEUTROPHILS % (AUTO) 61.2 % (42-78); TOTAL CELLS COUNTED % (AUTO) 100 %; WHITE BLOOD COUNT 5.5 10^3/uL (4.0-10.5)
[2018-08-02 14:00] LABS: APPEARANCE,URINE CLEAR; BILIRUBIN,URINE NEGATIVE (NEGATIVE); COLOR,URINE STRAW; GLUCOSE, URINE NEGATIVE (NEGATIVE); KETONES,URINE NEGATIVE (NEGATIVE); LEUKOCYTE ESTERASE,URINE NEGATIVE (NEGATIVE); NITRITE,URINE NEGATIVE (NEGATIVE); PROTEIN,URINE NEGATIVE (NEGATIVE); UROBILINOGEN,URINE NEGATIVE mg/dL (<2.0)
--- NOTE | 2018-08-02 14:06 | RADIOLOGY REPORT (SQ) ---
EXAM DESCRIPTION: CT ABD/PELVIS NO ORAL OR IV COMPLETED DATE/TIME: 08/02/2018 1:48 pm REASON FOR STUDY: left flank pain COMPARISON: None. TECHNIQUE: CT scan of the abdomen and pelvis performed without intravenous or oral contrast. Images reviewed with lung, soft tissue, and bone windows. Reconstructed coronal and sagittal MPR images revi ewed. All images stored on PACS. All CT scanners at this facility use dose modulation, iterative reconstruction, and/or weight based d osing when appropriate to reduce radiation dose to as low as reasonably achievable (ALARA). [facility]: Dose Right [facility]: CareDose [facility]: Dose Right [facility]: Teradose 4D [facility]: [employer] RADIATION DOSE: CT Rad equipment meets quality standard of care and radiation dose reduction techniq ues were employed. CTDIvol: 5.0 mGy. DLP: 257 mGy-cm.mGy. LIMITATIONS: None. FINDINGS: LOWER CHEST: No significant findings. No nodules or infiltrates. NON-CONTRASTED LIVER, SPLEEN, ADRENALS: Evaluation limited by lack of IV contrast. No identified sign ificant masses. PANCREAS: No masses. No peripancreatic inflammatory changes. GALLBLADDER: No identified stones by CT criteria. No inflammatory changes to suggest cholecystitis. RIGHT KIDNEY AND URETER: Hydronephrosis and hydroureter. No obstructing calculus is seen. LEFT KIDNEY AND URETER: Hydronephrosis. No obstructing calculus is appreciated. There is an opacity seen on image number 41 on the left. This appears to be adjacent to the ureters, not in the ureter. Scratch AORTA AND RETROPERITONEUM: No aneurysm. No retroperitoneal masses or adenopathy. BOWEL AND PERITONEAL CAVITY: No obvious masses or inflammatory changes. No free fluid. APPENDIX: Not identified. PELVIS, BLADDER, AND ABDOMINAL WALL:Urinary bladder is significantly distended. Prostate gland is pr ominent. BONES: There is nonspecific broad area of sclerosis in the anterior L5 vertebral body. No additional osseous lesions are seen. OTHER: No other significant finding. IMPRESSION: 1. Enlarged prostate gland. 2. Distended urinary bladder possibly suggesting bladder outlet obstruction secondary to above. 3. Bilateral hydronephrosis and hydroureter likely secondary to 1 and 2 above. No ureteral stone is seen. COMMENT: Quality ID # [id number]: Final reports with documentation of one or more dose reduction techniques (e.g., Automated exposure control, adjustment of the mA and/or kV according to patient size, use of iterative reconstruction technique) TECHNICAL DOCUMENTATION: JOB ID: [id number] [employer]- All Rights Reserved Reading location - IP/workstation name: [email or web address]
[2018-08-02 14:11] LABS: ALANINE AMINOTRANSFERASE 29 U/L (21-72); ALBUMIN 3.8 g/dL (3.5-5.0); ALKALINE PHOSPHATASE 55 U/L (38-126); ANION GAP 6 (5-19); ASPARTATE AMINO TRANSFERASE 28 U/L (17-59); BILIRUBIN,DIRECT 0.1 mg/dL (0.0-0.4); BILIRUBIN,TOTAL 0.3 mg/dL (0.2-1.3); BLOOD UREA NITROGEN 46 mg/dL (7-20); CALCIUM 9.7 mg/dL (8.4-10.2); CARBON DIOXIDE 21 mmol/L (22-30); CHLORIDE 112 mmol/L (98-107); GLUCOSE 86 mg/dL (75-110); POTASSIUM 5.7 mmol/L (3.6-5.0); SODIUM 139.4 mmol/L (137-145); TOTAL PROTEIN 6.6 g/dL (6.3-8.2)
[2018-08-02] MEDS ORDERED: LIDOCAINE 2% URO-JET 5 ML KIT MM ONE (15:41)
[2018-08-02 16:40] VITALS: BP 155/89
--- NOTE | 2018-08-03 16:46 | EKG REPORT ---
SEVERITY:- ABNORMAL ECG - SINUS BRADYCARDIA LEFT VENTRICULAR HYPERTROPHY : Confirmed by: Les Ovalle 03-Aug-2018 16:45:19
== END 2018-08-02 16:35 | disposition home or self-care (01) ==
LOC: ER 11:36
DX: N40.1 Benign prostatic hyperplasia with lower urinary tract symptoms (principal); N13.8 Other obstructive and reflux uropathy; N13.30 Unspecified hydronephrosis; I12.9 Hypertensive chronic kidney disease with stage 1 through stage 4 chronic kidney disease, or unspecified chronic kidney disease; N18.4 Chronic kidney disease, stage 4 (severe); R10.9 Unspecified abdominal pain; F12.10 Cannabis abuse, uncomplicated; Z87.442 Personal history of urinary calculi
CPT/HCPCS: 93005; 99284; 96374; 96375; 36415; 85025; 80053; 81001; 74176; 93010; J2270; J2405; C1758

== ENCOUNTER 2018-08-20 15:46 | Emergency (ER) | payer BC ==
--- NOTE | 2018-08-20 16:26 | ER Document Report ---
ED Medical Screen (RME) - General Chief Complaint: Urinary Problem Stated Complaint: ABNORMAL LABS Time Seen by Provider: 08/20/18 16:21 Primary Care Provider: MARIE ZACARIAS MD [Primary Care Provider] - Follow up as needed Mode of Arrival: Ambulatory Information source: Patient Notes: Patient is a 62-year-old male with past medical history of acute kidney injury and prostate issues who presents from his primary care providers office with concerns for urinary obstruction. Patient reports he is able to urinate only very small amounts at a time. Any other symptoms to include fever, nausea, vomiting, diarrhea or abdominal pain. Exam: Patient alert, oriented, answering all questions and no acute distress is noted. Abdomen soft, mild distention noted over the bladder. I have greeted and performed a rapid initial assessment of this patient. A comprehensive ED assessment and evaluation of the patient, analysis of test results and completion of the medical decision making process will be conducted by additional ED providers. Dictation of this chart was performed using voice recognition software; therefore, there may be some unintended grammatical error s. TRAVEL OUTSIDE OF THE [place] IN LAST 30 DAYS: No - Related Data Allergies/Adverse Reactions: No Known Allergies Allergy (Verified 08/02/18 11:40) Past Medical History - Past Medical History Cardiac Medical History: Reports: Hx Hypertension Renal/ Medical History: Denies: Hx Peritoneal Dialysis Past Surgical History: Reports: Other - Immunizations History of Influenza Vaccine for 02/2017 - 07/2017 Season: No Physical Exam - Vital signs Vitals: Temp Pulse Resp BP Pulse Ox 97.7 F 60 14 154/87 H 100 08/20/18 15:55 08/20/18 15:55 08/20/18 15:55 08/20/18 15:55 08/20/18 15:55 Course - Vital Signs Vital signs: Temp Pulse Resp BP Pulse Ox 97.7 F 60 14 154/87 H 100 08/20/18 15:55 08/20/18 15:55 08/20/18 15:55 08/20/18 15:55 08/20/18 15:55 Doctor's Discharge - Discharge Referrals: MARIE ZACARIAS MD [Primary Care Provider] - Follow up as needed
[2018-08-20 16:49] LABS: ABSOLUTE BASOPHILS # (AUTO) 0.1 10^3/uL (0.0-0.2); ABSOLUTE EOSINOPHILS # (AUTO) 0.4 10^3/uL (0.0-0.6); ABSOLUTE LYMPHOCYTES (AUTO) 1.4 10^3/uL (0.5-4.7); ABSOLUTE MONOCYTES (AUTO) 0.5 10^3/uL (0.1-1.4); ABSOLUTE NEUT (AUTO) 3.1 10^3/uL (1.7-8.2); BASOPHILS % (AUTO) 1.1 % (0-2); EOSINOPHILS % (AUTO) 6.5 % (0-6); HEMOGLOBIN 9.7 g/dL (13.5-17.0); LYMPHOCYTES % (AUTO) 26.2 % (13-45); MEAN CORPUSCULAR HEMOGLOBIN 28.4 pg (27.0-33.4); MEAN CORPUSCULAR HGB CONC 33.5 g/dL (32.0-36.0); MEAN CORPUSCULAR VOLUME 85 fl (80-97); MONOCYTES % (AUTO) 9.8 % (3-13); PLATELET COUNT 195 10^3/uL (150-450); RED BLOOD COUNT 3.41 10^6/uL (4.35-5.55); RED CELL DISTRIBUTION WIDTH 14.5 % (11.5-14.0); SEGMENTED NEUTROPHILS % (AUTO) 56.4 % (42-78); TOTAL CELLS COUNTED % (AUTO) 100 %; WHITE BLOOD COUNT 5.5 10^3/uL (4.0-10.5)
[2018-08-20 17:05] LABS: ALANINE AMINOTRANSFERASE 36 U/L (21-72); ALKALINE PHOSPHATASE 52 U/L (38-126); ANION GAP 6 (5-19); ASPARTATE AMINO TRANSFERASE 44 U/L (17-59); BILIRUBIN,DIRECT 0.3 mg/dL (0.0-0.4); BILIRUBIN,TOTAL 0.5 mg/dL (0.2-1.3); BLOOD UREA NITROGEN 55 mg/dL (7-20); CALCIUM 9.9 mg/dL (8.4-10.2); CARBON DIOXIDE 20 mmol/L (22-30); CHLORIDE 113 mmol/L (98-107); GLUCOSE 83 mg/dL (75-110); POTASSIUM 5.7 mmol/L (3.6-5.0); SODIUM 139.1 mmol/L (137-145); TOTAL PROTEIN 6.8 g/dL (6.3-8.2)
[2018-08-20] MEDS ORDERED: LIDOCAINE 2% URO-JET 5 ML KIT MM ONE (18:58)
[2018-08-20] MEDS ORDERED: SODIUM POLYSTYRENE SULFONATE 15 GM/60 ML PO ONE (18:58)
--- NOTE | 2018-08-20 19:03 | ER Document Report ---
ED General - General Chief Complaint: Urinary Problem Stated Complaint: ABNORMAL LABS Time Seen by Provider: 08/20/18 16:21 Primary Care Provider: MARIE ZACARIAS MD [Primary Care Provider] - Follow up as needed Mode of Arrival: Ambulatory Notes: She is a 62-year-old male with a past medical history of CKD, history of BPH, presents at the request of Dr. Platt his hvac/r instructor due to concerns of urinary obstruction. Patient has been having intermittent obstructive symptoms he states for several months. He states that he has some mild, aching, cramping pain to his lower abdomen and left flank. This likewise has been ongoing for the past several months, was gradual in onset, relatively unchanged over that period of time. Regards symptoms as being mild. Has not had a long-term Winston catheter in the past. Nothing seems to improve or worsen his symptoms. Denies fever or constitutional symptoms. Nothing is new or different about his symptoms that prompted a visit today other than the encouragement of his hvac/r instructor. TRAVEL OUTSIDE OF THE [place] IN LAST 30 DAYS: No - Related Data Allergies/Adverse Reactions: No Known Allergies Allergy (Verified 08/02/18 11:40) Past Medical History - General Information source: Patient - Social History Smoking Status: Never Smoker Frequency of alcohol use: None Drug Abuse: None Lives with: Family Family History: Reviewed & Not Pertinent, Hypertension Patient has suicidal ideation: No Patient has homicidal ideation: No - Past Medical History Cardiac Medical History: Reports: Hx Hypertension Renal/ Medical History: Denies: Hx Peritoneal Dialysis Past Surgical History: Reports: Other Review of Systems - Review of Systems Notes: Constitutional: Negative for fever. HENT: Negative for sore throat. Eyes: Negative for visual changes. Cardiovascular: Negative for chest pain. Respiratory: Negative for shortness of breath. Gastrointestinal: Positive for lower abdominal discomfort Genitourinary: Positive for urinary hesitancy and urinary frequency Musculoskeletal: Negative for back pain. Skin: Negative for rash. Neurological: Negative for headaches, weakness or numbness. 10 point ROS negative except as marked above and in HPI. Physical Exam - Vital signs Vitals: Temp Pulse Resp BP Pulse Ox 97.7 F 60 14 154/87 H 100 08/20/18 15:55 08/20/18 15:55 08/20/18 15:55 08/20/18 15:55 08/20/18 15:55 Interpretation: Hypertensive Notes: PHYSICAL EXAMINATION: GENERAL: Well-appearing, well-nourished and in no acute distress. HEAD: Atraumatic, normocephalic. EYES: Pupils equal round and reactive to light, extraocular movements intact, sclera anicteric, conjunctiva are normal. ENT: nares patent, oropharynx clear without exudates. Moderately dry mucous membranes. NECK: Normal range of motion, supple without lymphadenopathy LUNGS: Breath sounds clear to auscultation bilaterally and equal. No wheezes rales or rhonchi. HEART: Regular rate and rhythm without murmurs ABDOMEN: Soft, mild tenderness in the suprapubic space otherwise no localized areas of tenderness, normoactive bowel sounds. No guarding, no rebound. No masses appreciated. EXTREMITIES: Normal range of motion, no pitting or edema. No cyanosis. NEUROLOGICAL: No focal neurological deficits. Moves all extremities spontaneously and on command. PSYCH: Normal mood, normal affect. SKIN: Warm, Dry, normal turgor, no rashes or lesions noted. Course - Re-evaluation Re-evalutation: 08/20/18 18:58 Patient presents from his hvac/r instructor's office due to concerns of urinary obstruction. Patient has a history of BPH, has had urinary retention "for months". Apparently there was an acute concern today that this would be worsening his kidney function. His creatinine is effectively at his reported baseline. Mild hyperkalemia noted which has been treated with Kayexalate. Patient had urinated independent of Winston catheter placement approximately 20 minutes prior to my assessment. Bedside ultrasound showed a grossly distended bladder with greater than 500 cc of urine in the bladder. A Winston catheter was placed for decompression of the bladder and patient will be sent with a leg bag. At this time will discharge with return precautions and follow-up rec ommendations. Verbal discharge instructions given a the bedside and opportunity for questions given. Medication warnings reviewed. Patient is in agreement with this plan and has verbalized understanding of return precautions and the need for primary care follow-up in the next 24-72 hours. - Vital Signs Vital signs: Temp Pulse Resp BP Pulse Ox 97.7 F 60 14 154/87 H 100 08/20/18 15:55 08/20/18 15:55 08/20/18 15:55 08/20/18 15:55 08/20/18 15:55 - Laboratory Result Diagrams: 08/20/18 16:30 08/20/18 16:30 Laboratory results interpreted by me: 08/20/18 08/20/18 16:30 16:30 RBC 3.41 L Hgb 9.7 L Hct 29.0 L RDW 14.5 H Eosinophils % 6.5 H Potassium 5.7 H Chloride 113 H Carbon Dioxide 20 L BUN 55 H Creatinine 3.62 H Est GFR ( Amer) 21 L Est GFR (Non-Af Amer) 17 L Discharge - Discharge Clinical Impression: CKD (chronic kidney disease) stage 3, GFR 30-59 ml/min, BPH with obstruction/lower urinary tract symptoms Condition: Good Disposition: HOME, SELF-CARE Additional Instructions: You had a winston catheter placed to drain the urine out of your bladder as you are not fully draining your bladder when you are urinating. This is very dangerous for your kidney function especially because you have chronic problems with your kidney function. Please follow-up closely with your primary doctor to determine when the Winston catheter can be safely removed. Please return to the emergency department if you develop increasing lower abdominal pain, urine stops draining out of catheter, you have persistent vomiting, you develop a fever of greater than 100.4 F, or you have any other symptoms that are concerning to you. Prescriptions: Tamsulosin HCl [Flomax 0.4 mg Cap.sr] 0.4 mg PO DAILY #30 cap.sr.24h Referrals: MARIE ZACARIAS MD [Primary Care Provider] - Follow up tomorrow
[2018-08-20 19:12] LABS: APPEARANCE,URINE CLEAR; BILIRUBIN,URINE NEGATIVE (NEGATIVE); COLOR,URINE STRAW; GLUCOSE, URINE NEGATIVE (NEGATIVE); KETONES,URINE NEGATIVE (NEGATIVE); LEUKOCYTE ESTERASE,URINE NEGATIVE (NEGATIVE); NITRITE,URINE NEGATIVE (NEGATIVE); PROTEIN,URINE NEGATIVE (NEGATIVE); UROBILINOGEN,URINE NEGATIVE mg/dL (<2.0)
[2018-08-20 19:44] VITALS: BP 178/86
== END 2018-08-20 19:40 | disposition home or self-care (01) ==
LOC: ER 15:46
DX: N40.1 Benign prostatic hyperplasia with lower urinary tract symptoms (principal); N13.8 Other obstructive and reflux uropathy; I12.9 Hypertensive chronic kidney disease with stage 1 through stage 4 chronic kidney disease, or unspecified chronic kidney disease; N18.3 Chronic kidney disease, stage 3 (moderate); E87.5 Hyperkalemia
CPT/HCPCS: 99283; 51702; 36415; 85025; 80053; 81001; C1758; J3490

== ENCOUNTER 2018-08-21 04:34 | Emergency (ER) | payer BC ==
[2018-08-21] MEDS ORDERED: NORMAL SALINE 1000 ML 1,000 ML IV ONE (04:41)
[2018-08-21] MEDS ORDERED: ACETAMINOPHEN 325 MG TABLET PO ONE (04:47)
--- NOTE | 2018-08-21 04:47 | ER Document Report ---
ED General - General Chief Complaint: Blood in Catheter Stated Complaint: CATHETER PROBLEMS Time Seen by Provider: 08/21/18 04:35 Primary Care Provider: MARIE ZACARIAS MD [Primary Care Provider] - Follow up as needed TRAVEL OUTSIDE OF THE [place] IN LAST 30 DAYS: No - HPI Notes: Patient is a 62-year-old male that presents to the emergency department for chief complaint of hematuria. Patient was seen in the emergency room yesterday evening for urinary retention. He has a history of BPH and has had worsening renal function. Patient was referred to the ER by his structural rigger for concern of urine retention. He was found to have a postvoid residual of greater than 500 mL's. Lawson catheter was placed yesterday evening. Throughout the night patient states that he has had lower leg cramping that has been intermittent and sharp. He states he has been getting up to walk around because of the cramping. He noticed that his urine became bloody a few hours ago. He states his lower abdominal discomfort is improved but he does have some pain in his penis. He has had one bowel movement since being discharged. Past Medical History: CKD stage III, hypertension Past Surgical History: Reviewed in chart Social History: Reviewed in chart Family History: Reviewed and noncontributory for presenting illness Allergies: Reviewed, see documented allergy list. REVIEW OF SYSTEMS: CONSTITUTIONAL : No fever No chills No diaphoresis No recent illness EENT: No vision changes No congestion No sore throat CARDIOVASCULAR: No chest pain No palpitations RESPIRATORY: No shortness of breath No cough No difficulty breathing GASTROINTESTINAL: No abdominal pain No nausea No vomiting No diarrhea GENITOURINARY: No dysuria hematuria No difficulty urinating MUSCULOSKELETAL: No back pain leg pain No arm pain SKIN: No rashes No lesions LYMPHATIC: No swollen, enlarged glands. NEUROLOGICAL: No lightheadedness No headache No weakness No paresthesias PSYCHIATRIC: No anxiety No depression PHYSICAL EXAMINATION: Vital signs reviewed, nursing noted reviewed. GENERAL: Well-appearing, thin and in no acute distress. HEAD: Atraumatic, normocephalic. EYES: Eyes appear normal, extraocular movements intact, sclera anicteric, conjunctiva are normal. ENT: nares patent, oropharynx clear without exudates. Moist mucous membranes. NECK: Normal range of motion, supple without lymphadenopathy LUNGS: Breath sounds clear to auscultation bilaterally and equal. No wheezes rales or rhonchi. HEART: Regular rate and rhythm without murmurs ABDOMEN: Soft, nontender, normoactive bowel sounds. No rebound, guarding, or rigidity. No masses appreciated. : No penile discharge, Lawson catheter in place with no bleeding around urethral meatus EXTREMITIES: Nontender, good range of motion, no pitting or edema. NEUROLOGICAL: No focal neurological deficits. Moves all extremities spontaneously Motor and sensory grossly intact on exam. PSYCH: Normal mood, normal affect. SKIN: Warm, Dry, normal turgor, no rashes or lesions noted on exposed skin - Related Data Allergies/Adverse Reactions: No Known Allergies Allergy (Verified 08/21/18 05:15) Past Medical History - Social History Smoking Status: Unknown if Ever Smoked Family History: Reviewed & Not Pertinent, Hypertension - Past Medical History Cardiac Medical History: Reports: Hx Hypertension Renal/ Medical History: Denies: Hx Peritoneal Dialysis Past Surgical History: Reports: Other Physical Exam - Vital signs Vitals: Temp Pulse Resp BP Pulse Ox 97.3 F 58 L 18 176/89 H 100 08/21/18 05:14 08/21/18 05:14 08/21/18 05:14 08/21/18 05:14 08/21/18 05:14 Course - Re-evaluation Re-evalutation: 08/21/18 04:45 Vitals reviewed. Nursing notes reviewed. Patient is nontoxic in appearance. He does have avani blood in his catheter. Lawson catheter will be repositioned for concerned that it may have been withdrawn some although patient denies pulling on the catheter. The catheter will then be flushed to improve the hematuria. Urinalysis was unremarkable 12 hours ago therefore repeat UA not currently indicated. Patient was hyperkalemic and received Kayexalate prior to being discharged yesterday, he has had one bowel movement. Repeat blood work will be obtained to evaluate his current electrolyte and renal status. 08/21/18 05:30 Patient's hyperkalemia has resolved. His anemia and renal function have improved. After irrigation his hematuria has also resolved. The hematuria was likely related to some localized trauma from the catheter. The catheter is draining appropriately. He will be discharged home in stable condition and told to follow with Dr. Platt. Patient encouraged to stay well-hydrated to help prevent cramping. Laboratory 08/21/18 08/21/18 05:00 05:00 WBC 5.9 RBC 3.98 L Hgb 11.3 L Hct 33.9 L MCV 85 MCH 28.4 MCHC 33.4 RDW 14.0 Plt Count 220 Seg Neutrophils % 71.0 Lymphocytes % 15.9 Monocytes % 8.4 Eosinophils % 4.0 Basophils % 0.7 Absolute Neutrophils 4.2 Absolute Lymphocytes 0.9 Absolute Monocytes 0.5 Absolute Eosinophils 0.2 Absolute Basophils 0.0 Sodium 141.7 Potassium 4.5 D Chloride 111 H Carbon Dioxide 21 L Anion Gap 10 BUN 43 H Creatinine 2.89 H Est GFR ( Amer) 27 L Est GFR (Non-Af Amer) 22 L Glucose 116 H Calcium 10.5 H - Vital Signs Vital signs: Temp Pulse Resp BP Pulse Ox 97.3 F 58 L 18 176/89 H 100 08/21/18 05:14 08/21/18 05:14 08/21/18 05:14 08/21/18 05:14 08/21/18 05:14 - Laboratory Result Diagrams: 08/21/18 05:00 08/21/18 05:00 Laboratory results interpreted by me: 08/21/18 08/21/18 05:00 05:00 RBC 3.98 L Hgb 11.3 L Hct 33.9 L Chloride 111 H Carbon Dioxide 21 L BUN 43 H Creatinine 2.89 H Est GFR ( Amer) 27 L Est GFR (Non-Af Amer) 22 L Glucose 116 H Calcium 10.5 H Discharge - Discharge Clinical Impression: Leg cramps Hematuria Qualifiers: Hematuria type: gross Qualified Code(s): R31.0 - Gross hematuria Condition: Stable Disposition: HOME, SELF-CARE Instructions: Lawson Catheter Care ([facility]), Hematuria ([facility]) Additional Instructions: Please return to the emergency department if you have any worsening, or concern of your symptoms. Please return to the emergency department if you develop chest pain, difficulty breathing, severe abdominal pain, or ongoing vomiting. Please follow-up with your primary care physician in 2-3 days and any other recommended physicians. If prescribed, take all medications as directed. If you have any questions or concerns do not hesitate to return the emergency d epartment for evaluation. Follow with Dr. Platt in the next 2-3 days for reevaluation of your kidney function Referrals: MARIE ZACARIAS MD [Primary Care Provider] - Follow up in 3-5 days
[2018-08-21 05:07] LABS: ABSOLUTE EOSINOPHILS # (AUTO) 0.2 10^3/uL (0.0-0.6); ABSOLUTE LYMPHOCYTES (AUTO) 0.9 10^3/uL (0.5-4.7); ABSOLUTE MONOCYTES (AUTO) 0.5 10^3/uL (0.1-1.4); ABSOLUTE NEUT (AUTO) 4.2 10^3/uL (1.7-8.2); BASOPHILS % (AUTO) 0.7 % (0-2); HEMATOCRIT 33.9 % (37.9-51.0); HEMOGLOBIN 11.3 g/dL (13.5-17.0); LYMPHOCYTES % (AUTO) 15.9 % (13-45); MEAN CORPUSCULAR HEMOGLOBIN 28.4 pg (27.0-33.4); MEAN CORPUSCULAR HGB CONC 33.4 g/dL (32.0-36.0); MEAN CORPUSCULAR VOLUME 85 fl (80-97); MONOCYTES % (AUTO) 8.4 % (3-13); PLATELET COUNT 220 10^3/uL (150-450); RED BLOOD COUNT 3.98 10^6/uL (4.35-5.55); TOTAL CELLS COUNTED % (AUTO) 100 %; WHITE BLOOD COUNT 5.9 10^3/uL (4.0-10.5)
[2018-08-21 05:15] VITALS: BP 176/89
[2018-08-21 05:23] LABS: ANION GAP 10 (5-19); BLOOD UREA NITROGEN 43 mg/dL (7-20); CALCIUM 10.5 mg/dL (8.4-10.2); CARBON DIOXIDE 21 mmol/L (22-30); CHLORIDE 111 mmol/L (98-107); GLUCOSE 116 mg/dL (75-110); SODIUM 141.7 mmol/L (137-145)
[2018-08-21 05:27] LABS: POTASSIUM 4.5 mmol/L (3.6-5.0)
== END 2018-08-21 05:30 | disposition home or self-care (01) ==
LOC: ER 04:34
DX: R31.0 Gross hematuria (principal); R25.2 Cramp and spasm; I10 Essential (primary) hypertension
CPT/HCPCS: 99283; 36415; 85025; 80048; J7030

== ENCOUNTER 2018-08-23 09:48 | Emergency (ER) | payer BC ==
--- NOTE | 2018-08-23 10:37 | ER Document Report ---
ED Medical Screen (RME) - General Chief Complaint: Problem with Urinary Catheter Stated Complaint: CATHETER PROBLEMS Time Seen by Provider: 08/23/18 10:14 Primary Care Provider: MARIE ZACARIAS MD [Primary Care Provider] - Follow up as needed Notes: 62-year-old male with history of chronic kidney disease, recent catheter placement for BPH, presents because he was told to come here after getting an ultrasound of his bladder. He was seen about a week ago for urinary retention at that time had acute on chronic kidney injury. He is not on dialysis. He says that he was having a lot of leg cramping back then, but that led up some now. He has no abdominal pain his catheter is draining fine. He did have some hematuria over the weekend which corresponds with the ultrasound being done showing may be obstruction but that is now better. TRAVEL OUTSIDE OF THE [place] IN LAST 30 DAYS: No - Related Data Allergies/Adverse Reactions: No Known Allergies Allergy (Verified 08/23/18 09:57) Past Medical History - Past Medical History Cardiac Medical History: Reports: Hx Hypertension Renal/ Medical History: Denies: Hx Peritoneal Dialysis Past Surgical History: Reports: Other - Immunizations History of Influenza Vaccine for 02/2017 - 07/2017 Season: No Review of Systems - Review of Systems Notes: REVIEW OF SYSTEMS GEN: Denies fever, chills, weight loss ENT: Denies sore throat, nasal discharge, ear pain EYES: Denies blurry vision, eye pain, discharge CV: Denies chest pain, palpitations, edema RESP: Denies cough, shortness of breath, wheezing GI: Denies abdominal pain, nausea, vomiting, diarrhea MSK: Leg cramping SKIN: Denies rash, skin lesions LYMPH: Denies swollen glands/lymph nodes NEURO: Denies headache, focal weakness or numbness, dizziness PSYCH: Denies depression, suicidal or homicidal ideation PHYSICAL EXAMINATION General: No acute distress, well-nourished Head: Atraumatic, normocephalic ENT: Mouth normal, oropharynx moist, no exudates or tonsillar enlargement Eyes: Conjunctiva normal, pupils equal, lids normal Neck: No JVD, supple, no guarding CVS: Normal rate, regular rhythm, no murmurs Resp: No resp distress, equal and normal breath sounds bilaterally GI: Nondistended, soft, no tenderness to palpation, no rebound or guarding 2 urinary: Lawson bag with clear urine, meatus normal with catheter. Ext: No deformities, no edema, normal range of motion in upper and lower ext Back: No CVA or midline TTP Skin: No rash, warm Lymphatic: No lymphadeopathy noted Neuro: Awake, alert. Face symmetric. GCS 15. Physical Exam - Vital signs Vitals: Temp Pulse Resp BP Pulse Ox 98.0 F 84 16 124/75 100 08/23/18 10:03 08/23/18 10:03 08/23/18 10:03 08/23/18 10:03 08/23/18 10:03 Course - Re-evaluation Re-evalutation: 08/23/18 11:57 Patient presents with concerns over ultrasound. I do not know the results but it sounds like perhaps his Catheter was cloggedit clearly is not now. He has no fever or CVA tenderness or suprapubic pain in the urine in his bag looks clear. I will not get UA for infectious workup given the lack of symptoms to a void unnecessary antibiotics and cultures. In terms of his renal function we did check thatit is all at baseline. I see no acute issues and he can follow-up with urology and his primary care. I have discussed with the patient there likely diagnosis, aftercare plan, follow-up plans and my usual and customary return precautions. They verbalized understanding of this. - Vital Signs Vital signs: Temp Pulse Resp BP Pulse Ox 98.0 F 84 16 124/75 100 08/23/18 10:03 08/23/18 10:03 08/23/18 10:03 08/23/18 10:03 08/23/18 10:03 - Laboratory Result Diagrams: 08/23/18 10:31 08/23/18 11:00 Laboratory results interpreted by me: 08/23/18 08/23/18 10:31 11:00 RBC 3.77 L Hgb 10.8 L Hct 31.9 L RDW 14.2 H Eosinophils % 9.3 H Chloride 113 H BUN 48 H Creatinine 3.05 H Est GFR ( Amer) 25 L Est GFR (Non-Af Amer) 21 L Doctor's Discharge - Discharge Clinical Impression: Chronic kidney disease (CKD) Qualifiers: Chronic kidney disease stage: unspecified stage Qualified Code(s): N18.9 - Chronic kidney disease, unspecified Condition: Good Disposition: HOME, SELF-CARE Referrals: MARIE ZACARIAS MD [Primary Care Provider] - Follow up as needed
[2018-08-23 10:41] LABS: ABSOLUTE EOSINOPHILS # (AUTO) 0.6 10^3/uL (0.0-0.6); ABSOLUTE LYMPHOCYTES (AUTO) 1.2 10^3/uL (0.5-4.7); ABSOLUTE MONOCYTES (AUTO) 0.6 10^3/uL (0.1-1.4); ABSOLUTE NEUT (AUTO) 4.1 10^3/uL (1.7-8.2); BASOPHILS % (AUTO) 0.7 % (0-2); EOSINOPHILS % (AUTO) 9.3 % (0-6); HEMATOCRIT 31.9 % (37.9-51.0); HEMOGLOBIN 10.8 g/dL (13.5-17.0); LYMPHOCYTES % (AUTO) 18.9 % (13-45); MEAN CORPUSCULAR HEMOGLOBIN 28.6 pg (27.0-33.4); MEAN CORPUSCULAR HGB CONC 33.8 g/dL (32.0-36.0); MEAN CORPUSCULAR VOLUME 85 fl (80-97); MONOCYTES % (AUTO) 8.5 % (3-13); PLATELET COUNT 224 10^3/uL (150-450); RED BLOOD COUNT 3.77 10^6/uL (4.35-5.55); RED CELL DISTRIBUTION WIDTH 14.2 % (11.5-14.0); SEGMENTED NEUTROPHILS % (AUTO) 62.6 % (42-78); TOTAL CELLS COUNTED % (AUTO) 100 %; WHITE BLOOD COUNT 6.6 10^3/uL (4.0-10.5)
[2018-08-23 11:28] LABS: ANION GAP 5 (5-19); BLOOD UREA NITROGEN 48 mg/dL (7-20); CALCIUM 9.8 mg/dL (8.4-10.2); CARBON DIOXIDE 22 mmol/L (22-30); CHLORIDE 113 mmol/L (98-107); GLUCOSE 89 mg/dL (75-110); POTASSIUM 4.8 mmol/L (3.6-5.0); SODIUM 139.8 mmol/L (137-145)
[2018-08-23 12:11] VITALS: BP 127/74
== END 2018-08-23 12:14 | disposition home or self-care (01) ==
LOC: ER 09:48
DX: I12.9 Hypertensive chronic kidney disease with stage 1 through stage 4 chronic kidney disease, or unspecified chronic kidney disease (principal); N18.9 Chronic kidney disease, unspecified; N40.0 Benign prostatic hyperplasia without lower urinary tract symptoms; R25.2 Cramp and spasm
CPT/HCPCS: 36415; 80048; 85025; 99283

== ENCOUNTER 2018-08-31 17:21 | Emergency (ER) | payer BC ==
--- NOTE | 2018-08-31 19:05 | ER Document Report ---
Addendum entered and electronically signed by NELLA JUARES NP 08/31/18 20:42: Course - Re-evaluation Re-evalutation: 08/31/18 20:42 Patient's potassium is noted to be 6.1. I have ordered Kayexalate, albuterol, D50, insulin, calcium gluconate, EKG. Patient will be taken to her room as soon as possible. Patient remained stable at this time. - Vital Signs Vital signs: Temp Pulse Resp BP Pulse Ox 97.9 F 57 L 16 138/86 H 100 08/31/18 18:35 08/31/18 18:35 08/31/18 18:35 08/31/18 18:35 08/31/18 18:35 - Laboratory Result Diagrams: 08/31/18 19:35 08/31/18 19:35 Laboratory results interpreted by me: 08/31/18 08/31/18 08/31/18 19:35 19:35 19:35 RBC 3.74 L Hgb 10.7 L Hct 31.8 L Eosinophils % 6.6 H Potassium 6.1 H* Chloride 108 H BUN 49 H Creatinine 2.67 H Est GFR ( Amer) 30 L Est GFR (Non-Af Amer) 24 L Calcium 10.8 H Urine Protein 30 H Urine Blood SMALL H Ur Leukocyte Esterase MODERATE H Original Note: ED Medical Screen (RME) - General Chief Complaint: Flank Pain Stated Complaint: BACK PAIN Time Seen by Provider: 08/31/18 18:58 Primary Care Provider: Ziyad VILLASEÑOR MD [Primary Care Provider] - Follow up as needed Mode of Arrival: Ambulatory TRAVEL OUTSIDE OF THE [place] IN LAST 30 DAYS: No - HPI Patient complains to provider of: left flank pain Notes: 08/31/18 19:04 Patient here with complaints of left flank pain. The patient states that he has intermittent chronic left flank pain, but over the last few days it is gotten worse. Patient has a Lawson catheter in place. This is in place due to urinary retention. He states that he talk to his urologist who informed him he should come the emergency department if he is having worsening pain. No fevers. No abdominal pain. No nausea, vomiting, diarrhea. He also states that he needs new leg bags. Exam [id number], no distress. Left CVA tenderness to percussion. No abdominal tenderness on exam. Lungs clear and equal throughout. Plan CBC, CMP, lipase, UA, ultrasound of the kidney. An initial examination was made on the patient as part of the triage process, and it was determined a more comprehensive evaluation was necessary. Initial labs were ordered and patient was transferred to another provider in the ED who assumed care and finished evaluation and plan. - Related Data Allergies/Adverse Reactions: No Known Allergies Allergy (Verified 08/23/18 09:57) Past Medical History - Past Medical History Cardiac Medical History: Reports: Hx Hypertension Renal/ Medical History: Denies: Hx Peritoneal Dialysis Past Surgical History: Reports: Other - Immunizations History of Influenza Vaccine for 02/2017 - 07/2017 Season: No Physical Exam - Vital signs Vitals: Temp Pulse Resp BP Pulse Ox 97.9 F 57 L 16 138/86 H 100 08/31/18 18:35 08/31/18 18:35 08/31/18 18:35 08/31/18 18:35 08/31/18 18:35 Course - Vital Signs Vital signs: Temp Pulse Resp BP Pulse Ox 97.9 F 57 L 16 138/86 H 100 08/31/18 18:35 08/31/18 18:35 08/31/18 18:35 08/31/18 18:35 08/31/18 18:35 Doctor's Discharge - Discharge Referrals: Ziyad VILLASEÑOR MD [Primary Care Provider] - Follow up as needed
[2018-08-31 19:55] LABS: ABSOLUTE BASOPHILS # (AUTO) 0.1 10^3/uL (0.0-0.2); ABSOLUTE EOSINOPHILS # (AUTO) 0.5 10^3/uL (0.0-0.6); ABSOLUTE LYMPHOCYTES (AUTO) 1.9 10^3/uL (0.5-4.7); ABSOLUTE MONOCYTES (AUTO) 0.7 10^3/uL (0.1-1.4); ABSOLUTE NEUT (AUTO) 3.9 10^3/uL (1.7-8.2); EOSINOPHILS % (AUTO) 6.6 % (0-6); HEMATOCRIT 31.8 % (37.9-51.0); HEMOGLOBIN 10.7 g/dL (13.5-17.0); LYMPHOCYTES % (AUTO) 27.4 % (13-45); MEAN CORPUSCULAR HEMOGLOBIN 28.5 pg (27.0-33.4); MEAN CORPUSCULAR HGB CONC 33.5 g/dL (32.0-36.0); MEAN CORPUSCULAR VOLUME 85 fl (80-97); MONOCYTES % (AUTO) 9.4 % (3-13); PLATELET COUNT 280 10^3/uL (150-450); RED BLOOD COUNT 3.74 10^6/uL (4.35-5.55); RED CELL DISTRIBUTION WIDTH 13.6 % (11.5-14.0); SEGMENTED NEUTROPHILS % (AUTO) 55.6 % (42-78); TOTAL CELLS COUNTED % (AUTO) 100 %; WHITE BLOOD COUNT 7.1 10^3/uL (4.0-10.5)
[2018-08-31 20:12] LABS: ALANINE AMINOTRANSFERASE 28 U/L (21-72); ALBUMIN 4.3 g/dL (3.5-5.0); ALKALINE PHOSPHATASE 61 U/L (38-126); ANION GAP 9 (5-19); APPEARANCE,URINE CLEAR; ASPARTATE AMINO TRANSFERASE 23 U/L (17-59); BILIRUBIN,DIRECT 0.3 mg/dL (0.0-0.4); BILIRUBIN,TOTAL 0.3 mg/dL (0.2-1.3); BILIRUBIN,URINE NEGATIVE (NEGATIVE); BLOOD UREA NITROGEN 49 mg/dL (7-20); CALCIUM 10.8 mg/dL (8.4-10.2); CARBON DIOXIDE 22 mmol/L (22-30); CHLORIDE 108 mmol/L (98-107); COLOR,URINE STRAW; GLUCOSE 94 mg/dL (75-110); GLUCOSE, URINE NEGATIVE (NEGATIVE); KETONES,URINE NEGATIVE (NEGATIVE); LEUKOCYTE ESTERASE,URINE MODERATE (NEGATIVE); LIPASE 205.5 U/L (23-300); NITRITE,URINE NEGATIVE (NEGATIVE); PROTEIN,URINE 30 mg/dL (NEGATIVE); SODIUM 138.6 mmol/L (137-145); TOTAL PROTEIN 7.1 g/dL (6.3-8.2); URINE SPECIFIC GRAVITY 1.014; UROBILINOGEN,URINE NEGATIVE mg/dL (<2.0)
[2018-08-31 20:19] LABS: POTASSIUM 6.1 mmol/L (3.6-5.0)
--- NOTE | 2018-08-31 20:31 | RADIOLOGY REPORT (SQ) ---
EXAM DESCRIPTION: US RETROPERITONEUM COMPLETED DATE/TME: 08/31/2018 19:03 CLINICAL HISTORY: 62 years Male left flank pain COMPARISON: None. TECHNIQUE: Transabdominal grayscale imaging performed to evaluate the kidneys and urinary bladder. FINDINGS: There is a Lawson catheter in the decompressed urinary bladder. The prostate appears enlarged. Bladder wall is thickened and somewhat irregular. Right kidney measures 9.4 x 3.6 cm with mild hydronephrosis. Left kidney measures 8.8 x 5.3 cm. There appears to be minimal left caliectasis. IMPRESSION: Small size of the kidneys bilaterally particularly on the left Mild right hydronephrosis and minimal left caliectasis Thickened and irregular bladder wall which may be as a result of trabeculation and decompression. Possibility of inflammation or bladder wall mass is not excluded.
[2018-08-31] MEDS ORDERED: SODIUM POLYSTYRENE SULFONATE 15 GM/60 ML PO ONE (20:39)
[2018-08-31] MEDS ORDERED: INSULIN REG, HUMAN 100 UNIT/ML 3 ML VIAL (PYX) IV ONE (20:39)
[2018-08-31] MEDS ORDERED: DEXTROSE 50%-WATER 25 GM/50 ML DISP.SYRIN IV ONE (20:39)
[2018-08-31] MEDS ORDERED: CALCIUM GLUCONATE 1000 MG/10 ML INJ IV ONE (20:39)
[2018-08-31] MEDS ORDERED: ALBUTEROL SULFATE 0.083% NEB 2.5 MG/3 ML AMPUL NEB ONE (20:39)
[2018-08-31] MEDS ORDERED: SODIUM POLYSTYRENE SULFONATE 15 GM/60 ML ONE (22:35)
--- NOTE | 2018-09-01 00:07 | RADIOLOGY REPORT (SQ) ---
EXAM DESCRIPTION: CT ABDOMEN PELVIS WITHOUT IV CONTRAST COMPLETED DATE/TME: 08/31/2018 22:23 CLINICAL HISTORY: 62 years, Male, left flank pain COMPARISON: 08/02/2018 CT TECHNIQUE: 337 Images stored on PACS. All CT scanners at this facility use dose modulation, iterative reconstruction, and/or weight based dosing when appropriate to reduce radiation dose to as low as reasonably achievable (ALARA). [facility]: Dose Right [facility]: CareDose [facility]: Dose Right [facility]: Teradose 4D [facility]: [employer] LIMITATIONS: None. FINDINGS: Limited evaluation of the lung bases is unremarkable. Osseous structures are grossly intact. The liver, spleen, adrenal glands, pancreas are unremarkable. Gallbladder is present. Diffuse urinary bladder wall thickening. There is a Lawson catheter within the urinary bladder. Mild bilateral hydronephrosis and hydroureter. This has improved compared with the prior exam. No discrete urinary tract calculus. Enlargement of the prostate. Grossly stable postsurgical change. No gross evidence for bowel obstruction. Large amount of stool in the colon. No free air. No free fluid. IMPRESSION: Mild bilateral hydroureteronephrosis. This has improved compared with the prior exam. No obstructing calculus. Diffuse urinary bladder wall thickening. Lawson catheter in place. Enlargement of the prostate. TECHNICAL DOCUMENTATION: Quality ID # [id number]: Final reports with documentation of one or more dose reduction techniques (e.g., Automated exposure control, adjustment of the mA and/or kV according to patient size, use of iterative reconstruction technique) copyright 2010 [employer]- All Rights Reserved
[2018-09-01 02:28] LABS: BLOOD UREA NITROGEN 45 mg/dL (7-20); CALCIUM 11.1 mg/dL (8.4-10.2); CARBON DIOXIDE 24 mmol/L (22-30); CHLORIDE 111 mmol/L (98-107); SODIUM 141.9 mmol/L (137-145)
[2018-09-01 02:29] LABS: ANION GAP 7 (5-19)
[2018-09-01 02:33] LABS: GLUCOSE 43 mg/dL (75-110)
[2018-09-01 02:42] LABS: POTASSIUM 4.7 mmol/L (3.6-5.0)
[2018-09-01] MEDS ORDERED: NORMAL SALINE 1000 ML 1,000 ML IV ONE (04:12)
--- NOTE | 2018-09-01 04:13 | ER Document Report ---
ED General - General Chief Complaint: Flank Pain Stated Complaint: BACK PAIN Time Seen by Provider: 08/31/18 18:58 Primary Care Provider: Ziyad PLATT MD [Primary Care Provider] - Follow up as needed Mode of Arrival: Ambulatory Notes: Patient is a 62-year-old male presents with complaint of pain in his flank and back. He says his pain is actually chronic and not new. He was little worse today and therefore he called Dr. Platt who told come to the ER to be evaluated. Patient has history of prostate issues and has an indwelling Winston catheter because of this. Patient denies any new pains. Denies any fevers. No infections. No other complaints at this time. TRAVEL OUTSIDE OF THE [place] IN LAST 30 DAYS: No - Related Data Allergies/Adverse Reactions: No Known Allergies Allergy (Verified 08/23/18 09:57) Past Medical History - Social History Smoking Status: Former Smoker Frequency of alcohol use: None Drug Abuse: None Family History: Reviewed & Not Pertinent, Hypertension Patient has suicidal ideation: No Patient has homicidal ideation: No - Past Medical History Cardiac Medical History: Reports: Hx Hypertension Renal/ Medical History: Denies: Hx Peritoneal Dialysis Past Surgical History: Reports: Other Review of Systems - Review of Systems Notes: My Normal Review Basic REVIEW OF SYSTEMS: CONSTITUTIONAL : Denies fever, chills, or sweats. Denies recent illness. RESPIRATORY: Denies cough, cold, or chest congestion. Denies shortness of breath, difficulty breathing, or wheezing. GASTROINTESTINAL: Denies abdominal pain. Denies nausea, vomiting, or diarrhea. GENITOURINARY: indwelling winston catheter MUSCULOSKELETAL: Denies neck or back pain or joint pain or swelling. SKIN: Denies rash or skin lesions. NEUROLOGICAL: Denies altered mental status or loss of consciousness. ALL OTHER SYSTEMS REVIEWED AND NEGATIVE. Physical Exam - Vital signs Vitals: Temp Pulse Resp BP Pulse Ox 97.9 F 57 L 16 138/86 H 100 08/31/18 18:35 08/31/18 18:35 08/31/18 18:35 08/31/18 18:35 08/31/18 18:35 - Notes Notes: General Appearance: Well nourished, alert, cooperative, no acute distress, no obvious discomfort. Vitals: reviewed, See vital signs table. Eyes: PERRL, EOMI, Conjuctiva clear Mouth: No decreasd moisture Lungs: No wheezing, No rales, No rhonci, No accessory muscle use, good air exchange bilaterally. Heart: Normal rate, Regular rythm, No murmur, no rub Abdomen: Normal BS, soft, No rigidity, No abdominal tenderness, No guarding, no rebound, no abdominal masses, no organomegaly Back: Mild reproducible pain palpation over bilateral lumbar paraspinal musculature. Extremities: strength 5/5 in all extremities, good pulses in all extremities, no swelling or tenderness in the extremities, no edema. Skin: warm, dry, appropriate color, no rash Neuro: speech clear, oriented x 3, normal affect, responds appropriately to questions. Course - Re-evaluation Re-evalutation: 09/01/18 04:12 Patient's repeat chemistry panel is improved. He looks well. He is in no distress. I feel he safe to be discharged home but he start having some abd ominal cramping and now cramping in his legs since he received Kayexalate in triage. We will give him some IV fluids to see if this helps with the cramping.. After that patient will be discharged home. 09/01/18 05:43 Patient is feeling much improved now. Sugars of 99. I feel he safe to be disc harged home. His pain is well controlled. Says his pain actually improved when he was on his way to the hospital. His potassium is improved. Will appears to be working appropriately. CT scan showed a small hydronephrosis which is unchanged in comparison to his previous scans. There is no evidence of no obstruction. Patient has a upcoming appointment with Dr. Moura, his urologist. Patient encouraged to return to ER if he has recurrent worsening pain, vomiting, or feels unwell. Patient agrees with plan will be discharged home. Dictation of this chart was performed using voice recognition software; therefore, there may be some unintended grammatical errors. 09/01/18 05:44 - Vital Signs Vital signs: Temp Pulse Resp BP Pulse Ox 97.9 F 57 L 20 127/86 H 100 09/01/18 05:54 08/31/18 18:35 09/01/18 06:00 09/01/18 05:00 09/01/18 04:01 - Laboratory Result Diagrams: 08/31/18 19:35 09/01/18 02:04 Laboratory results interpreted by me: 08/31/18 08/31/18 08/31/18 19:35 19:35 19:35 RBC 3.74 L Hgb 10.7 L Hct 31.8 L Eosinophils % 6.6 H Potassium 6.1 H* Chloride 108 H BUN 49 H Creatinine 2.67 H Est GFR ( Amer) 30 L Est GFR (Non-Af Amer) 24 L Glucose POC Glucose Calcium 10.8 H Urine Protein 30 H Urine Blood SMALL H Ur Leukocyte Esterase MODERATE H 09/01/18 09/01/18 09/01/18 02:04 02:48 03:30 RBC Hgb Hct Eosinophils % Potassium Chloride 111 H BUN 45 H Creatinine 2.60 H Est GFR ( Amer) 31 L Est GFR (Non-Af Amer) 25 L Glucose 43 L POC Glucose 53 L 128 H Calcium 11.1 H Urine Protein Urine Blood Ur Leukocyte Esterase Discharge - Discharge Clinical Impression: Back pain, Hyperkalemia, CKD (chronic kidney disease) stage 3, GFR 30-59 ml/min Condition: Good Disposition: HOME, SELF-CARE Additional Instructions: Please return to ER immediately if you have worsening pain, vomiting, fevers, or feel unwell. Please follow-up with Dr. Moura and Dr. Platt as scheduled. Referrals: Ziyad PLATT MD [Primary Care Provider] - Follow up as needed
[2018-09-01 05:54] VITALS: BP 127/86
--- NOTE | 2018-09-01 08:29 | EKG REPORT ---
SEVERITY:- ABNORMAL ECG - SINUS BRADYCARDIA CONSIDER ANTEROSEPTAL INFARCT TALL T, CONSIDER METABOLIC/ISCHEMIC ABNRM : Confirmed by: Lin Santos MD 01-Sep-2018 08:29:06
== END 2018-09-01 06:07 | disposition home or self-care (01) ==
LOC: ER 17:21
DX: M54.9 Dorsalgia, unspecified (principal); I12.9 Hypertensive chronic kidney disease with stage 1 through stage 4 chronic kidney disease, or unspecified chronic kidney disease; N18.3 Chronic kidney disease, stage 3 (moderate); E87.5 Hyperkalemia; R10.9 Unspecified abdominal pain; R25.2 Cramp and spasm; Z87.891 Personal history of nicotine dependence
CPT/HCPCS: 93005; 94640; 99284; 96361; 96374; 96375; 36415; 82962; 83690; 85025; 80048; 80053; 81001; 76770; 74176; 93010; J0610; J3490; J1815; J7030

== ENCOUNTER → 2018-08-31 | Outpatient (CLI) | payer BC ==
[2018-08-31 17:10] LABS: ABSOLUTE BASOPHILS # (AUTO) 0.1 10^3/uL (0.0-0.2); ABSOLUTE EOSINOPHILS # (AUTO) 0.4 10^3/uL (0.0-0.6); ABSOLUTE LYMPHOCYTES (AUTO) 1.9 10^3/uL (0.5-4.7); ABSOLUTE MONOCYTES (AUTO) 0.6 10^3/uL (0.1-1.4); ABSOLUTE NEUT (AUTO) 3.4 10^3/uL (1.7-8.2); BASOPHILS % (AUTO) 1.1 % (0-2); EOSINOPHILS % (AUTO) 6.6 % (0-6); HEMATOCRIT 31.4 % (37.9-51.0); HEMOGLOBIN 10.5 g/dL (13.5-17.0); LYMPHOCYTES % (AUTO) 29.3 % (13-45); MEAN CORPUSCULAR HEMOGLOBIN 28.2 pg (27.0-33.4); MEAN CORPUSCULAR HGB CONC 33.6 g/dL (32.0-36.0); MEAN CORPUSCULAR VOLUME 84 fl (80-97); MONOCYTES % (AUTO) 8.7 % (3-13); PLATELET COUNT 287 10^3/uL (150-450); RED BLOOD COUNT 3.74 10^6/uL (4.35-5.55); RED CELL DISTRIBUTION WIDTH 13.7 % (11.5-14.0); SEGMENTED NEUTROPHILS % (AUTO) 54.3 % (42-78); TOTAL CELLS COUNTED % (AUTO) 100 %; WHITE BLOOD COUNT 6.3 10^3/uL (4.0-10.5)
[2018-08-31 17:30] LABS: ALANINE AMINOTRANSFERASE 25 U/L (21-72); ALBUMIN 4.3 g/dL (3.5-5.0); ALKALINE PHOSPHATASE 57 U/L (38-126); ANION GAP 8 (5-19); ASPARTATE AMINO TRANSFERASE 24 U/L (17-59); BILIRUBIN,DIRECT 0.2 mg/dL (0.0-0.4); BILIRUBIN,TOTAL 0.2 mg/dL (0.2-1.3); BLOOD UREA NITROGEN 49 mg/dL (7-20); CALCIUM 10.3 mg/dL (8.4-10.2); CARBON DIOXIDE 25 mmol/L (22-30); CHLORIDE 106 mmol/L (98-107); GLUCOSE 94 mg/dL (75-110); IRON(TIBC) 72.1 ug/dL (49-181); PHOSPHORUS 3.9 mg/dL (2.5-4.5); POTASSIUM 5.7 mmol/L (3.6-5.0); SODIUM 139.3 mmol/L (137-145); TOTAL PROTEIN 7.6 g/dL (6.3-8.2)
[2018-09-02 16:37] LABS: A/G RATIO 1.3 (0.7-1.7); ALBUMIN 2 3.9 g/dL (2.9-4.4); ALPHA-2-GLOBULIN 2 0.8 g/dL (0.4-1.0); BETA GLOBULINS 1.1 g/dL (0.7-1.3); GLOBULIN TOTAL 3.1 g/dL (2.2-3.9); MONOCLONAL SPIKE Not Observed g/dL (Not Observ)
== END ==
LOC: OD 16:42
PROVIDERS: ATTEND Internal Medicine Nephrology
DX: I12.9 Hypertensive chronic kidney disease with stage 1 through stage 4 chronic kidney disease, or unspecified chronic kidney disease (principal); N18.4 Chronic kidney disease, stage 4 (severe); D63.1 Anemia in chronic kidney disease; N40.1 Benign prostatic hyperplasia with lower urinary tract symptoms
CPT/HCPCS: 36415; 80053; 82728; 83540; 83550; 83970; 84100; 84165; 84443; 85025

== ENCOUNTER 2018-09-06 19:57 | Emergency (ER) | payer BC ==
[2018-09-06] MEDS ORDERED: NORMAL SALINE 1000 ML 1,000 ML IV ONE (20:40)
--- NOTE | 2018-09-06 20:42 | ER Document Report ---
ED General - General Chief Complaint: Chest Pain > 30 Stated Complaint: CHEST PAIN Time Seen by Provider: 09/06/18 20:38 Primary Care Provider: Ziyad VILLASEÑOR MD [ACTIVE STAFF] - Follow up tomorrow Notes: Patient is a 62-year-old male with past medical history of chronic kidney disease, BPH with chronic urinary retention, hypertension, presents complaining of lightheadedness, intermittent chest pain, and feeling very fatigued. States that his symptoms have been intermittent over the past 24 hours, regards him as mild to moderate, unchanged in intensity over the last 24 hours. Nothing seems to improve his symptoms. Standing seems to worsen his lightheadedness. Denies any history of myocardial infarction or cardiac illness in the past. Has not seen his primary care physician regarding today's concerns. No fever or constitutional symptoms. History is otherwise limited secondary to patient's vitals at time of presentation. TRAVEL OUTSIDE OF THE [place] IN LAST 30 DAYS: No - Related Data Allergies/Adverse Reactions: No Known Allergies Allergy (Verified 08/23/18 09:57) Past Medical History - General Information source: Patient - Social History Smoking Status: Never Smoker Frequency of alcohol use: None Drug Abuse: None Lives with: Family Family History: Reviewed & Not Pertinent, Hypertension - Past Medical History Cardiac Medical History: Reports: Hx Hypertension Renal/ Medical History: Denies: Hx Peritoneal Dialysis Past Surgical History: Reports: Other Review of Systems - Review of Systems Notes: Constitutional: Negative for fever. HENT: Negative for sore throat. Eyes: Negative for visual changes. Cardiovascular: Positive for lightheadedness, positive for chest pain Respiratory: Negative for shortness of breath. Gastrointestinal: Negative for abdominal pain, positive for nausea Genitourinary: Positive for Lawson catheter in place Musculoskeletal: Negative for back pain. Skin: Negative for rash. Neurological: Negative for headaches, weakness or numbness. 10 point ROS negative except as marked above and in HPI. Physical Exam - Vital signs Vitals: Temp Pulse Resp BP Pulse Ox 98.1 F 61 16 91/51 L 98 09/06/18 20:23 09/06/18 20:23 09/06/18 20:23 09/06/18 20:23 09/06/18 20:23 Interpretation: Hypotensive Notes: PHYSICAL EXAMINATION: GENERAL: Appears mildly unwell but in no overt distress HEAD: Atraumatic, normocephalic. EYES: Pupils equal round and reactive to light, extraocular movements intact, sclera anicteric, conjunctiva are normal. ENT: nares patent, oropharynx clear without exudates. Dry mucous membranes. NECK: Normal range of motion, supple without lymphadenopathy LUNGS: Breath sounds clear to auscultation bilaterally and equal. No wheezes rales or rhonchi. HEART: Regular rate and rhythm without murmurs ABDOMEN: Soft, nontender, normoactive bowel sounds. No guarding, no rebound. No masses appreciated. EXTREMITIES: Normal range of motion, no pitting or edema. No cyanosis. NEUROLOGICAL: No focal neurological deficits. Moves all extremities spontaneously and on command. PSYCH: Normal mood, normal affect. SKIN: Warm, Dry, normal turgor, no rashes or lesions noted. Course - Re-evaluation Re-evalutation: 09/06/18 20:40 Documentation is delayed as I immediately went to this patient's bedside upon his arrival in the emergency department. Patient's initial pressures were in the 70s systolic and presented due to lightheadedness and feel like he was about to pass out. On my assessment the patient is somewhat pale, mildly ill in appearance but in no overt distress. Mildly dry mucous membranes. States that he was having chest pain earlier but has since resolved. His EKG does reveal some inverted T waves in lead III that were not present on previous EKG but no other notable changes. Patient was immediately placed on monitor, IV access will be established. Will begin 1 L of fluid resuscitation as he does appear clinically dehydrated and is hypotensive. He has a Lawson catheter has been in place for urinary retention that has been there since his previous visit to the emergency department. The Lawson catheter we changed out and a new catheter was inserted and the urine specimen we obtained from that sample. Patient is in guarded condition and will be reassessed at regular intervals. 09/06/18 21:31 Patient has been reassessed on 2 occasions since initial assessment. Blood pre ssure has much improved after initiation of IV fluids currently 05/31/69. His color has also improved as has his mentation. Labs pending. Will continue to reassess. 09/06/18 23:06 Repeat blood pressures remain within normal limits. Patient overall appears much improved. Urinalysis consist with catheter associated infection with specimen being obtained from brand-new catheter placement. Culture has been sent and patient has been given a dose of ceftriaxone. Will repeat troponin III hours after initial, ambulate the patient to determine whether or not he will continue to be asymptomatic with exertion. 09/07/18 00:49 Patient's repeat troponin is normal. He has ambulate without any difficulty. Remains very well in appearance, blood pressures remain within acceptable limits. Do not see immediate indication for hospitalization at this time given patient's overall well appearance, repeatedly normal blood pressures after receiving IV fluid resuscitation which is strongly suggestive of a hypovolemic picture as the etiology of his initial presentation. He has been started on antibiotics for coverage of a catheter associated urinary tract infection. At this time will discharge with return precautions and follow-up recommendations. Verbal discharge instructions given a the bedside and opportunity for questions given. Medication warnings reviewed. Patient is in agreement with this plan and has verbalized understanding of return precautions and the need for primary care follow-up in the next 24-72 hours. - Vital Signs Vital signs: Temp Pulse Resp BP Pulse Ox 98 F 61 19 128/75 H 99 09/07/18 01:01 09/06/18 20:23 09/07/18 01:01 09/07/18 01:01 09/07/18 01:00 - Laboratory Result Diagrams: 09/06/18 20:53 09/06/18 20:53 Laboratory results interpreted by me: 09/06/18 09/06/18 09/06/18 20:53 20:53 21:00 RBC 3.28 L Hgb 9.4 L Hct 27.7 L Sodium 136.2 L BUN 42 H Creatinine 2.61 H Est GFR ( Amer) 30 L Est GFR (Non-Af Amer) 25 L Urine Protein 100 H Urine Blood MODERATE H Ur Leukocyte Esterase LARGE H - EKG Interpretation by Me Additional EKG results interpreted by me: 09/07/18 00:50 Sinus bradycardia, rate 52. LVH, T wave inversion in lead III that was not present on previous EKG Critical Care Note - Critical Care Note Total time excluding time spent on procedures (mins): 38 Comments: Critical care time spent obtaining history from patient or surrogate, discussions with consultants, development of treatment plan with patient or surrogate, evaluation of patient's response to treatment, examination of patient, ordering and performing treatments and interventions, ordering and review of laboratory studies, re-evaluation of patient's condition, ordering and review of radiographic studies and review of old charts Discharge - Discharge Clinical Impression: Hypovolemia, Lightheadedness Chronic kidney disease Qualifiers: Chronic kidney disease stage: unspecified stage Qualified Code(s): N18.9 - Chronic kidney disease, unspecified Catheter-associated urinary tract infection Qualifiers: Indwelling urinary catheter type: indwelling urethral catheter Encounter type: initial encounter Qualified Code(s): T83.511A - Infection and inflammatory reaction due to indwelling urethral catheter, initial encounter Hypotension Qualifiers: Hypotension type: unspecified hypotension type Qualified Code(s): I95.9 - Hypotension, unspecified Condition: Stable Disposition: HOME, SELF-CARE Additional Instructions: Your labs today are suggestive of a urinary tract infection associated with the catheter. Your blood pressure was initially low likely secondary to dehydration as it has improved after receiving IV fluids here in the emergency department. The remainder of your workup is otherwise reassuring. Please follow-up very closely with your primary care doctor within the next 24-48 hours. Strongly encouraged to return to the emergency department immediately if you develop any further lightheadedness, pass out, develop recurrent chest pain, fever or any other symptoms that are of concern to you. Prescriptions: Cephalexin Monohydrate [Keflex 500 mg Capsule] 500 mg PO Q6H 7 Days capsule Referrals: Ziyad VILLASEÑOR MD [ACTIVE STAFF] - Follow up tomorrow
[2018-09-06 21:00] LABS: ABSOLUTE BASOPHILS # (AUTO) 0.1 10^3/uL (0.0-0.2); ABSOLUTE EOSINOPHILS # (AUTO) 0.5 10^3/uL (0.0-0.6); ABSOLUTE LYMPHOCYTES (AUTO) 1.9 10^3/uL (0.5-4.7); ABSOLUTE MONOCYTES (AUTO) 0.7 10^3/uL (0.1-1.4); ABSOLUTE NEUT (AUTO) 5.9 10^3/uL (1.7-8.2); BASOPHILS % (AUTO) 0.6 % (0-2); EOSINOPHILS % (AUTO) 5.4 % (0-6); HEMATOCRIT 27.7 % (37.9-51.0); HEMOGLOBIN 9.4 g/dL (13.5-17.0); MEAN CORPUSCULAR HEMOGLOBIN 28.6 pg (27.0-33.4); MEAN CORPUSCULAR HGB CONC 33.9 g/dL (32.0-36.0); MEAN CORPUSCULAR VOLUME 85 fl (80-97); MONOCYTES % (AUTO) 8.1 % (3-13); PLATELET COUNT 240 10^3/uL (150-450); RED BLOOD COUNT 3.28 10^6/uL (4.35-5.55); RED CELL DISTRIBUTION WIDTH 13.8 % (11.5-14.0); SEGMENTED NEUTROPHILS % (AUTO) 64.9 % (42-78); TOTAL CELLS COUNTED % (AUTO) 100 %; WHITE BLOOD COUNT 9.1 10^3/uL (4.0-10.5)
[2018-09-06 21:15] LABS: AMORPHOUS SEDIMENT,URINE TRACE /HPF; APPEARANCE,URINE SLIGHTLY-CLOUDY; BILIRUBIN,URINE NEGATIVE (NEGATIVE); COLOR,URINE YELLOW; GLUCOSE, URINE NEGATIVE (NEGATIVE); KETONES,URINE NEGATIVE (NEGATIVE); LEUKOCYTE ESTERASE,URINE LARGE (NEGATIVE); NITRITE,URINE NEGATIVE (NEGATIVE); PROTEIN,URINE 100 mg/dL (NEGATIVE); URINE SPECIFIC GRAVITY 1.014; UROBILINOGEN,URINE NEGATIVE mg/dL (<2.0)
[2018-09-06 21:23] LABS: ALANINE AMINOTRANSFERASE 24 U/L (21-72); ALBUMIN 3.8 g/dL (3.5-5.0); ALKALINE PHOSPHATASE 58 U/L (38-126); ANION GAP 5 (5-19); ASPARTATE AMINO TRANSFERASE 23 U/L (17-59); BILIRUBIN,DIRECT 0.2 mg/dL (0.0-0.4); BILIRUBIN,TOTAL 0.2 mg/dL (0.2-1.3); BLOOD UREA NITROGEN 42 mg/dL (7-20); CALCIUM 9.7 mg/dL (8.4-10.2); CARBON DIOXIDE 24 mmol/L (22-30); CHLORIDE 107 mmol/L (98-107); GLUCOSE 98 mg/dL (75-110); SODIUM 136.2 mmol/L (137-145); TOTAL PROTEIN 6.9 g/dL (6.3-8.2)
[2018-09-06] MEDS ORDERED: CEFTRIAXONE INJ 1000 MG VIAL IV ONE (23:05)
[2018-09-07 01:06] VITALS: BP 128/75
--- NOTE | 2018-09-07 07:48 | EKG REPORT ---
SEVERITY:- ABNORMAL ECG - SINUS RHYTHM LVH BY VOLTAGE CONSIDER ANTEROSEPTAL INFARCT ST ELEVATION SUGGESTHYPERKALEMIA. : Confirmed by: Radames Carpenter MD 07-Sep-2018 07:47:35
== END 2018-09-07 01:06 | disposition home or self-care (01) ==
LOC: ER 19:57
DX: T83.511A Infection and inflammatory reaction due to indwelling urethral catheter, initial encounter (principal); N39.0 Urinary tract infection, site not specified; E86.1 Hypovolemia; I13.10 Hypertensive heart and chronic kidney disease without heart failure, with stage 1 through stage 4 chronic kidney disease, or unspecified chronic kidney disease; N18.9 Chronic kidney disease, unspecified; N40.1 Benign prostatic hyperplasia with lower urinary tract symptoms; R33.8 Other retention of urine; R00.1 Bradycardia, unspecified; R53.83 Other fatigue; R42 Dizziness and giddiness; R07.9 Chest pain, unspecified
CPT/HCPCS: 93005; 99291; 96361; 51702; 96365; 36415; 87086; 85025; 87088; 80053; 81001; 84484; 87186; 93010; C1758; J0696; J7030

== ENCOUNTER 2018-10-18 09:35 | Emergency (ER) | payer BC ==
[2018-10-18] MEDS ORDERED: CARBAMIDE PEROXIDE 6.5% OTIC SOLN 15 ML AS ONE (11:34)
--- NOTE | 2018-10-18 11:40 | ER Document Report ---
HPI - HPI Patient complains to provider of: Left ear pain muffled hearing Time Seen by Provider: 10/18/18 11:12 Pain Level: 3 Context: Well-appearing 62 male presents emergency department with chief complaint of left ear pain and muffled hearing. 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 He states that it has been going on for a couple of days. He states that there is pain and he has muffled hearing. He denies any fevers, chills, vision changes, headache, neck stiffness, sore throat, tender lymph nodes, shortness of breath or chest pain, nausea vomiting, no other symptoms. - EENT EENT: REPORTS: Ear Pain - L ear Past Medical History - Social History Smoking Status: Former Smoker Frequency of alcohol use: weekends Drug Abuse: Marijuana Family History: Reviewed & Not Pertinent, Hypertension Patient has suicidal ideation: No Patient has homicidal ideation: No - Past Medical History Cardiac Medical History: Reports: Hx Hypertension Renal/ Medical History: Reports: Hx End Stage Renal Disease. Denies: Hx Peritoneal Dialysis Past Surgical History: Reports: Other Vertical Provider Document - CONSTITUTIONAL Notes: PHYSICAL EXAMINATION: Reviewed vital signs and charting by RN GENERAL: Alert, interacts well. No acute distress. HEAD: Normocephalic, atraumatic. EYES: Pupils equal, round, and reactive to light. Extraocular movements intact. ENT: Oral mucosa moist, tongue midline. Unable to visualize left TM due to impacted cerumen. NECK: Full range of motion. Supple. Trachea midline. EXTREMITIES: Moves all 4 extremities spontaneously. No edema, No cyanosis. PSYCH: Normal affect, normal mood. SKIN: Warm, dry, normal turgor. No rashes or lesions noted. - INFECTION CONTROL TRAVEL OUTSIDE OF THE [place] IN LAST 30 DAYS: No Course - Re-evaluation Re-evalutation: 10/18/18 11:39 Well-appearing and afebrile. After physical exam patient symptoms most consistent with a cerumen impaction of the left ear. I was unable to visualize TM and explained to the patient that I cannot definitively rule out a middle ear infection but cannot prescribe him antibiotics at this time. I gave him carbamide peroxide and instructed him to place 5 to 10 drops in the left ear 2 times per day for the next 4 days. I told him if his symptoms do not resolve or get worse come back to the emergency department reevaluation. - Vital Signs Vital signs: Temp Pulse Resp BP Pulse Ox 97.9 F 84 20 166/80 H 100 10/18/18 09:52 10/18/18 09:52 10/18/18 09:52 10/18/18 09:52 10/18/18 09:52 Discharge - Discharge Clinical Impression: Impacted cerumen of left ear Condition: Good Disposition: HOME, SELF-CARE Additional Instructions: You are seen in emergency department this morning for earwax impaction. I was unable to see your eardrum so I cannot definitively tell you if you have a middle ear infection. But based on your history and presenting symptoms it is most likely related to wax impaction. I have given you eardrops here in the ER and I want you to continue to place 5 to 10 drops in your left ear with next dose this evening. You will then place a drops in your ear in the morning in the evening. If you develop severe headache, high fever with severe ear pain, severe jaw pain, inability to open your jaw. Or you have any other concerning symptoms please return to the emergency department for reevaluation. Referrals: MARIE ZACARIAS MD [Primary Care Provider] - Follow up as needed
[2018-10-18 11:44] VITALS: BP 161/96
== END 2018-10-18 11:51 | disposition home or self-care (01) ==
LOC: ER 09:35
DX: H61.22 Impacted cerumen, left ear (principal); H92.02 Otalgia, left ear; Z87.891 Personal history of nicotine dependence; I10 Essential (primary) hypertension
CPT/HCPCS: 99282; J3490

== ENCOUNTER 2019-05-16 15:16 | Inpatient (IN) | payer BC ==
--- NOTE | 2019-05-16 17:13 | ER Document Report ---
ED Medical Screen (RME) - General Stated Complaint: BOTH ANKEL SWELLING Time Seen by Provider: 05/16/19 17:01 Primary Care Provider: MARIE ZACARIAS MD [Primary Care Provider] - Follow up as needed Notes: Patient is a 63-year-old male with a history of chronic kidney disease, hypertension and BPH who presents to the emergency department with a chief complaint of bilateral leg swelling. Patient reports that he is noticed bilateral leg swelling that started yesterday. Patient reports there is pain. Patient denies calf pain or warmth to his legs. Patient reports this is happened before but it got better on its own. Patient reports he does not have a known history of congestive heart failure and does not take any diuretics. Patient denies cough or fever. Patient reports he is also had some intermittent chest pain and shortness of breath. Patient attempted to go to his primary care physician's office Dr. Zacarias, but was told to come here for an evaluation. Patient also reports intermittent pus in his urine. Patient reports that time he does have trouble urinating. TRAVEL OUTSIDE OF THE [place] IN LAST 30 DAYS: No - Related Data Allergies/Adverse Reactions: No Known Allergies Allergy (Verified 10/18/18 09:38) Past Medical History - Past Medical History Cardiac Medical History: Reports: Hx Hypertension Renal/ Medical History: Reports: Hx End Stage Renal Disease. Denies: Hx Peritoneal Dialysis Past Surgical History: Reports: Other Physical Exam - Vital signs Vitals: Temp Pulse Resp BP Pulse Ox 97.9 F 63 16 145/77 H 100 05/16/19 15:23 05/16/19 15:23 05/16/19 15:23 05/16/19 15:23 05/16/19 15:23 - Respiratory Respiratory status: No respiratory distress Chest status: Nontender Breath sounds: Normal Chest palpation: Normal Course - Re-evaluation Re-evalutation: 05/16/19 17:13 I have greeted and performed a rapid initial assessment of this patient. A comprehensive ED assessment and evaluation of the patient, analysis of test results and completion of the medical decision making process will be conducted by additional ED providers. - Vital Signs Vital signs: Temp Pulse Resp BP Pulse Ox 97.9 F 63 16 145/77 H 100 05/16/19 15:23 05/16/19 15:23 05/16/19 15:23 05/16/19 15:23 05/16/19 15:23 Doctor's Discharge - Discharge Referrals: MARIE ZACARIAS MD [Primary Care Provider] - Follow up as needed
[2019-05-16 18:07] LABS: APPEARANCE,URINE CLEAR; BILIRUBIN,URINE NEGATIVE (NEGATIVE); COLOR,URINE STRAW; GLUCOSE, URINE NEGATIVE (NEGATIVE); KETONES,URINE NEGATIVE (NEGATIVE); LEUKOCYTE ESTERASE,URINE NEGATIVE (NEGATIVE); NITRITE,URINE NEGATIVE (NEGATIVE); PROTEIN,URINE 30 mg/dL (NEGATIVE); URINE SPECIFIC GRAVITY 1.009; UROBILINOGEN,URINE NEGATIVE mg/dL (<2.0)
[2019-05-16 18:11] LABS: ABSOLUTE BASOPHILS # (AUTO) 0.1 10^3/uL (0.0-0.2); ABSOLUTE EOSINOPHILS # (AUTO) 0.5 10^3/uL (0.0-0.6); ABSOLUTE LYMPHOCYTES (AUTO) 0.9 10^3/uL (0.5-4.7); ABSOLUTE MONOCYTES (AUTO) 0.5 10^3/uL (0.1-1.4); ABSOLUTE NEUT (AUTO) 3.9 10^3/uL (1.7-8.2); BASOPHILS % (AUTO) 0.9 % (0-2); EOSINOPHILS % (AUTO) 8.9 % (0-6); HEMATOCRIT 21.8 % (37.9-51.0); LYMPHOCYTES % (AUTO) 15.7 % (13-45); MEAN CORPUSCULAR HEMOGLOBIN 27.1 pg (27.0-33.4); MEAN CORPUSCULAR HGB CONC 32.5 g/dL (32.0-36.0); MEAN CORPUSCULAR VOLUME 83 fl (80-97); MONOCYTES % (AUTO) 8.8 % (3-13); PLATELET COUNT 193 10^3/uL (150-450); RED BLOOD COUNT 2.62 10^6/uL (4.35-5.55); RED CELL DISTRIBUTION WIDTH 14.7 % (11.5-14.0); SEGMENTED NEUTROPHILS % (AUTO) 65.7 % (42-78); TOTAL CELLS COUNTED % (AUTO) 100 %
[2019-05-16 18:14] LABS: HEMOGLOBIN 7.1 g/dL (13.5-17.0)
--- NOTE | 2019-05-16 18:23 | RADIOLOGY REPORT (SQ) ---
EXAM DESCRIPTION: CHEST 2 VIEWS COMPLETED DATE/TIME: 05/16/2019 5:51 pm REASON FOR STUDY: chest pain COMPARISON: None. EXAM PARAMETERS: NUMBER OF VIEWS: two views TECHNIQUE: Digital Frontal and Lateral radiographic views of the chest acquired. RADIATION DOSE: NA LIMITATIONS: none FINDINGS: LUNGS AND PLEURA: No opacities, masses or pneumothorax. No pleural effusion. MEDIASTINUM AND HILAR STRUCTURES: Age-appropriate contour. HEART AND VASCULAR STRUCTURES: Heart normal size. No evidence for failure. BONES: No acute findings. HARDWARE: None in the chest. OTHER: No other significant finding. IMPRESSION: NO ACUTE RADIOGRAPHIC FINDING IN THE CHEST. TECHNICAL DOCUMENTATION: JOB ID: [id number] [place]-72 2010 [employer]- All Rights Reserved Reading location - IP/workstation name: [email or web address]
[2019-05-16 18:28] LABS: ALBUMIN 4.6 g/dL (3.5-5.0); ALKALINE PHOSPHATASE 58 U/L (38-126); ANION GAP 17 (5-19); ASPARTATE AMINO TRANSFERASE 27 U/L (17-59); BILIRUBIN,DIRECT 0.4 mg/dL (0.0-0.4); BILIRUBIN,TOTAL 0.4 mg/dL (0.2-1.3); CALCIUM 9.7 mg/dL (8.4-10.2); CARBON DIOXIDE 16 mmol/L (22-30); CHLORIDE 106 mmol/L (98-107); GLUCOSE 92 mg/dL (75-110); TOTAL PROTEIN 7.8 g/dL (6.3-8.2)
[2019-05-16 18:38] LABS: NT PRO BNP 2950 pg/mL (<125)
[2019-05-16 18:40] LABS: TROPONIN I < 0.012 ng/mL
--- NOTE | 2019-05-16 18:45 | EKG REPORT ---
SEVERITY:- ABNORMAL ECG - SINUS RHYTHM LEFT VENTRICULAR HYPERTROPHY : Confirmed by: Radames Carpenter MD 16-May-2019 18:43:13
--- NOTE | 2019-05-16 18:52 | ER Document Report ---
ED General - General Chief Complaint: Ankle Swelling Stated Complaint: BOTH ANKEL SWELLING Time Seen by Provider: 05/16/19 17:01 Primary Care Provider: MARIE ZACARIAS MD [Primary Care Provider] - Follow up as needed Notes: 63-year-old male with a history of CKD but not on dialysis presents the emergency department from his primary care physician's office complaining of leg swelling for the past 2 days. Patient states he had 1 similar episode in the past around giving that he did not report to his primary care physician and self resolved. Patient admits some shortness of breath with this but denies any orthopnea or dyspnea on exertion. States that the leg swelling really only started on his ride to work 2 days ago but he had to call off work today because it hurts so badly to work on his swollen feet. Denies any history of CHF or DVT or pulmonary embolism. Denies any dialysis. TRAVEL OUTSIDE OF THE [place] IN LAST 30 DAYS: No - Related Data Allergies/Adverse Reactions: No Known Allergies Allergy (Verified 10/18/18 09:38) Past Medical History - General Information source: Patient - Social History Smoking Status: Never Smoker Frequency of alcohol use: Occasional Drug Abuse: None, Marijuana Family History: Reviewed & Not Pertinent, Hypertension Patient has suicidal ideation: No Patient has homicidal ideation: No - Past Medical History Cardiac Medical History: Reports: Hx Hypertension Renal/ Medical History: Reports: Hx End Stage Renal Disease. Denies: Hx Peritoneal Dialysis Past Surgical History: Reports: Other Review of Systems - Review of Systems Constitutional: Chills EENT: No symptoms reported Cardiovascular: See HPI, Edema Respiratory: See HPI Gastrointestinal: No symptoms reported Genitourinary: Frequency. denies: Dysuria, Hematuria, Incontinence -: Yes All other systems reviewed and negative Physical Exam - Vital signs Vitals: Temp Pulse Resp BP Pulse Ox 97.9 F 63 16 145/77 H 100 05/16/19 15:23 05/16/19 15:23 05/16/19 15:23 05/16/19 15:23 05/16/19 15:23 Interpretation: Hypertensive - Notes Notes: GENERAL: Alert, interacts well. No acute distress. HEAD: Normocephalic, atraumatic EYES: Pupils equal, round and reactive to light, extraocular movements intact. ENT: Oral mucosa moist, tongue midline. NECK: Full range of motion, supple, trachea midline. LUNGS: Clear to auscultation bilaterally, no wheezes, rales or rhonchi, no respiratory distress. HEART: Regular rate and rhythm, no murmurs, gallops, rubs. ABDOMEN: Soft, nontender, nondistended, bowel sounds present in all 4 quadrants. EXTREMITIES: Moves all 4 extremities spontaneously, 1+ pitting edema to the level of the ankles edema, radial and dorsalis pedis pulses 2/4 bilaterally. No cyanosis. NEUROLOGICAL: Alert and oriented x3, normal speech, biceps and patellar DTRs 2+ bilaterally. PSYCH: Normal mood, normal affect. SKIN: Warm, Dry, normal turgor, no rashes or lesions noted. Course - Re-evaluation Re-evalutation: 05/16/19 20:16 CBC shows worsening anemia with hemoglobin 7.1, approximately 8 months ago it was 9.4, CMP shows acute renal failure with hyperkalemia, potassium is 6.7, BUN is 121, creatinine is 12.08, at least some of this is from dehydration as the patient has a CO2 of 16, patient will be hydrated, given [place], calcium gluconate, insulin, glucose and bicarb. Patient has peaked T waves on his EKG, proBNP is elevated at 2950 although he does not have any crackles on his lung exam. Troponin is negative. Chest x-ray does not show any extra fluid. I am awaiting a phone call back from Dr. Grey to discuss admitting this patient f or acute renal failure with hyperkalemia. 05/16/19 20:25 Dr. Grey is happy to accept the patient to [facility] if Dr. Platt is available for consultation and possible dialysis tomorrow. 05/16/19 20:[address] Platt, agrees to consult as needed, request renal ultrasound, repeat labs in a few hours and Lawson catheter insertion. - Vital Signs Vital signs: Temp Pulse Resp BP Pulse Ox 97.9 F 63 16 145/77 H 100 05/16/19 15:23 05/16/19 15:23 05/16/19 15:23 05/16/19 15:23 05/16/19 15:23 - Laboratory Result Diagrams: 05/16/19 17:34 05/16/19 17:34 Laboratory results interpreted by me: 05/16/19 05/16/19 05/16/19 17:34 17:34 17:34 RBC 2.62 L Hgb 7.1 L Hct 21.8 L RDW 14.7 H Eos % (Auto) 8.9 H Potassium 6.7 H* Carbon Dioxide 16 L BUN 121 H Creatinine 12.08 H Est GFR ( Amer) 5 L Est GFR (MDRD) Non-Af 4 L NT-Pro-B Natriuret Pep 2950 H Urine Protein 05/16/19 17:34 RBC Hgb Hct RDW Eos % (Auto) Potassium Carbon Dioxide BUN Creatinine Est GFR ( Amer) Est GFR (MDRD) Non-Af NT-Pro-B Natriuret Pep Urine Protein 30 H - EKG Interpretation by Me Additional EKG results interpreted by me: 05/16/19 18:52 EKG shows sinus bradycardia rate of 54, normal axis, normal intervals, LVH, no ST segment elevations or depressions, isolated T wave inversion in lead III which is nonspecific per my interpretation. Discharge - Discharge Clinical Impression: Hyperkalemia Acute renal failure Qualifiers: Acute renal failure type: unspecified Qualified Code(s): N17.9 - Acute kidney failure, unspecified Condition: Fair Disposition: ADMITTED INPATIENT Admitting Provider: Jon thao. Unit Admitted: IMCU Referrals: MARIE ZACARIAS MD [Primary Care Provider] - Follow up as needed
[2019-05-16 19:02] LABS: BLOOD UREA NITROGEN 121 mg/dL (7-20); POTASSIUM 6.7 mmol/L (3.6-5.0)
[2019-05-16] MEDS ORDERED: INSULIN REG, HUMAN 100 UNIT/ML 3 ML VIAL (PYX) SUBCUT ONE (19:33)
[2019-05-16] MEDS ORDERED: SODIUM BICARBONATE 8.4% INJ 50 MEQ/50 ML DISP.SYRIN IV ONE (19:33)
[2019-05-16] MEDS ORDERED: CALCIUM GLUCONATE 1000 MG/10 ML INJ IV ONE (19:33)
[2019-05-16] MEDS ORDERED: DEXTROSE 50%-WATER 25 GM/50 ML DISP.SYRIN IV ONE (19:33)
[2019-05-16] MEDS ORDERED: DEXTROSE 5%-1/2 NORMAL SALINE 500 ML IV ONE (19:34)
[2019-05-16] MEDS ORDERED: FUROSEMIDE INJ/PF 40 MG/4 ML SDV IV ONE (19:35)
--- NOTE | 2019-05-16 22:07 | RADIOLOGY REPORT (SQ) ---
US RETROPERITONEUM LIMITED EXAM DATE: 05/16/2019 8:35 PM [facility] HISTORY: Acute renal failure. COMPARISON: 08/31/2018 TECHNIQUE: Grayscale and color Doppler ultrasound images of the kidneys were obtained. FINDINGS: The right kidney measures 12.4 cm in length. The cortex has normal thickness and echogenicity. There is moderate hydronephrosis. No renal stone is seen. The left kidney measures 11.3 cm in length. The cortex has normal thickness and echogenicity. There is moderate hydronephrosis. No renal stone is seen. There is a Lawson catheter in the urinary bladder. IMPRESSION: Moderate bilateral hydronephrosis, increased from prior study. Consider CT scan if there is high concern for obstructing stone distally.
[2019-05-16] MEDS ORDERED: PATIROMER 8.4 GM SUSP PACKET PO ONE (23:45)
[2019-05-17] MEDS: ACETAMINOPHEN 325 MG TABLET PO PRN ×2 (01:24→12:52)
[2019-05-17 01:58] LABS: ANION GAP 18 (5-19); BLOOD UREA NITROGEN 115 mg/dL (7-20); CALCIUM 9.8 mg/dL (8.4-10.2); CARBON DIOXIDE 17 mmol/L (22-30); CHLORIDE 106 mmol/L (98-107); GLUCOSE 167 mg/dL (75-110)
[2019-05-17 02:05] LABS: POTASSIUM 5.1 mmol/L (3.6-5.0)
[2019-05-17] MEDS: AMLODIPINE BESYLATE 10 MG TABLET PO SCH (09:44)
[2019-05-17] MEDS ORDERED: TAMSULOSIN HCL 0.4 MG CAP.SR.24H PO SCH (10:00)
--- NOTE | 2019-05-17 12:33 | PDOC CONSULTATION ---
Consultation Consult Date: 05/17/19 Provider Consulted: Ziyad VILLASEÑOR Consult reason:: HELEN on CKD stage III/IV. History of Present Illness Admission Date/PCP: 05/16/19 20:41 MARIE ZAACRIAS MD History of Present Illness: TOBY COLLINS is a 63 year old male Of hypertension, CKD stage III/IV with base creatinine around 2.5 in the background of obstructive uropathy from prostatic enlargement and previous history of bilateral hydronephrosis is admitted with history of progressive swelling of his legs some mild shortness of breath, slowly losing appetite with nausea and occasional vomiting for the last few days. According to his fiance who is at the bedside patient has been running down over the last 1 to 2 weeks. However patient has still been able to go to work. No complaints of any chest pains or orthopnea. He had noticed progressive swelling over the last few days around his ankles. No history of any chest pain or palpitations. No complaints of any fever or chills. He says he has been having some difficulty in urination. He has seen Dr. Moura/urologist in the past for obvious obstructive uropathy from prostate enlargement and bilateral hydronephrosis but has refused to keep appointments after being advised that he would need to have surgery on the prostate. Patient has had noncompliant issues with keeping up appointments with me in my office as well and he says is because of financial reasons for the co-pay. Labs and medications on admission reviewed with patient however was having HELEN on CKD stage III/IV with BUN/creatinine 114/12 with a potassium of 6.7. Patient was instituted immediate hyperkalemic measures and he get got a dose of IV Lasix x1 based on his edema of his legs. Today patient feels a whole lot better. He is happy that the edema of his legs is all gone. He denies any shortness of breath with minimal exertion in the room.Labs shows that today he is normokalemic. Past Medical History Cardiac Medical History: Reports: Hypertension-primary Renal/ Medical History: Reports: Chronic Kidney Disease Stage IV, Hyperkalemia, Other - BPH with LUTS Hematology Medical History: Reports Anemia of Chronic Kidney Disease Past Surgical History Past Surgical History: Reports: Other Social History Smoking Status: Never Smoker Frequency of Alcohol Use: Social Drugs: Marijuana - Advance Directive Resuscitation Status: Full Code Family History Parental Family History Reviewed: No Children Family History Reviewed: No Sibling(s) Family History Reviewed.: No Medication/Allergy Home Medications: Amlodipine Besylate [Norvasc 10 mg Tablet] 10 mg PO DAILY #30 tablet 02/24/17 Tamsulosin HCl [Flomax 0.4 mg Cap.sr] 0.4 mg PO DAILY 3 Days #30 02/24/17 Allergies/Adverse Reactions: No Known Allergies Allergy (Verified 10/18/18 09:38) Review of Systems Constitutional: PRESENT: anorexia, fatigue, weakness. ABSENT: chills, fever(s), headache(s), night sweats Nose, Mouth, and Throat: ABSENT: mouth pain, sore throat Cardiovascular: PRESENT: dyspnea on exertion, edema. ABSENT: chest pain, orthropnea, palpitations Respiratory: PRESENT: dyspnea. ABSENT: cough, hemoptysis Gastrointestinal: ABSENT: abdominal pain, bloating, coffee ground emesis, constipation, diarrhea, dysphagia, heartburn, hematemesis, hematochezia Genitourinary: PRESENT: difficulty urinating. ABSENT: dysuria, hematuria Musculoskeletal: ABSENT: deformity, joint swelling Integumentary: ABSENT: erythema, lesions, pruritus, rash Neurological: ABSENT: abnormal gait, abnormal movements, abnormal speech, confusion, focal weakness, frequent falls, lack of coordination, memory loss, numbness Psychiatric: ABSENT: hallucinations, homidical ideation Endocrine: ABSENT: heat intolerance, polydipsia Hematologic/Lymphatic: ABSENT: easy bleeding, easy bruising, lymphadenopathy Physical Exam Vital Signs: Temp Pulse Resp BP Pulse Ox 97.8 F 75 17 176/95 H 100 05/17/19 07:03 05/17/19 07:03 05/17/19 07:03 05/17/19 07:03 05/17/19 07:03 Intake & Output 05/16/19 05/17/19 05/18/19 06:59 06:59 06:59 Intake Total 500 Output Total 7350 Balance -6850 Weight 69.7 kg General appearance: PRESENT: no acute distress Eye exam: PRESENT: EOMI, PERRLA. ABSENT: scleral icterus Ear exam: PRESENT: normal external ear exam Mouth exam: PRESENT: dry mucosa Neck exam: ABSENT: lymphadenopathy, meningismus, tenderness, thyromegaly, tracheal deviation Respiratory exam: PRESENT: clear to auscultation tessa. ABSENT: chest wall tenderness, crackles Cardiovascular exam: PRESENT: +S1, +S2. ABSENT: rubs GI/Abdominal exam: PRESENT: normal bowel sounds, soft. ABSENT: organomegaly, tenderness Extremities exam: ABSENT: pedal edema Neurological exam: PRESENT: alert, awake, oriented to person, oriented to place Psychiatric exam: PRESENT: appropriate affect Skin exam: PRESENT: dry. ABSENT: erythema, mottled, petechiae, rash Results Laboratory Results: 05/16/19 17:34 05/17/19 01:25 05/16/19 05/16/19 05/16/19 17:34 17:34 17:34 WBC 6.0 RBC 2.62 L Hgb 7.1 L Hct 21.8 L MCV 83 MCH 27.1 MCHC 32.5 RDW 14.7 H Plt Count 193 Seg Neutrophils % 65.7 Sodium 139.2 Potassium 6.7 H* Chloride 106 Carbon Dioxide 16 L Anion Gap 17 BUN 121 H Creatinine 12.08 H Est GFR ( Amer) 5 L Glucose 92 Calcium 9.7 Total Bilirubin 0.4 AST 27 Alkaline Phosphatase 58 Total Protein 7.8 Albumin 4.6 Urine Color STRAW Urine Appearance CLEAR Urine pH 8.0 Ur Specific [place] 1.009 Urine Protein 30 H Urine Glucose (UA) NEGATIVE Urine Ketones NEGATIVE Urine Blood NEGATIVE Urine Nitrite NEGATIVE Ur Leukocyte Esterase NEGATIVE Urine WBC (Auto) 4 05/17/19 01:25 WBC RBC Hgb Hct MCV MCH MCHC RDW Plt Count Seg Neutrophils % Sodium 140.8 Potassium 5.1 H D Chloride 106 Carbon Dioxide 17 L Anion Gap 18 BUN 115 H Creatinine 11.50 H Est GFR ( Amer) 5 L Glucose 167 H Calcium 9.8 Total Bilirubin AST Alkaline Phosphatase Total Protein Albumin Urine Color Urine Appearance Urine pH Ur Specific [place] Urine Protein Urine Glucose (UA) Urine Ketones Urine Blood Urine Nitrite Ur Leukocyte Esterase Urine WBC (Auto) 05/16/19 17:34 Troponin I < 0.012 NT-Pro-B Natriuret Pep 2950 H Impressions: Chest X-Ray 05/16/19 17:11 IMPRESSION: NO ACUTE RADIOGRAPHIC FINDING IN THE CHEST. Renal Ultrasound 05/16/19 20:35 IMPRESSION: Moderate bilateral hydronephrosis, increased from prior study. Consider CT scan if there is high concern for obstructing stone distally. Assessment & Plan - Diagnosis (1) Acute renal failure Qualifiers: Acute renal failure type: unspecified Qualified Code(s): N17.9 - Acute kidney failure, unspecified Is this a current diagnosis for this admission?: Yes Plan: Patient's baseline creatinine is around 2.5. He has not kept appointments with me in my office for some time. He has also been referred and he has seen Dr. Moura/urologist for prostatic enlargement with history of mild bilateral hydronephrosis in the past. He was advised TURP operative procedure but patient refused to keep any appointments with him as well. Now he presents with acute on chronic kidney disease with early uremia and mild heart failure and severe hyperkalemia. Patient has improved with placement of Lawson catheter and is draining good urine output. He is now clinically on the dry side. We will start him on IV fluids. He does not show any overt signs of heart failure. He does not seem to be any acute need of renal replacements given his improvement of his early heart failure as well as hyperkalemia which is resolved. Advised him that he needs to keep appointment with Dr. Moura once he gets out of the hospital and undergo operative procedure of his enlarged prostate to relieve problems in the future. He will have to be discharged home with indwelling Lawson catheter. (2) Bilateral hydronephrosis Plan: Obviously looks like it is gotten worse compared to the previous 1 earlier this year. Discussed implications and need for immediate follow-up with urologist. (3) Anemia Is this a current diagnosis for this admission?: Yes Plan: Initiate work-up. (4) Hyperkalemia Is this a current diagnosis for this admission?: Yes Plan: Currently resolved with appropriate anti-hyperkalemic measures. Advised low potassium diet. We discussed the consequences of high potassium including cardiac arrest. (5) BPH with obstruction/lower urinary tract symptoms Is this a current diagnosis for this admission?: Yes Plan: As mentioned earlier. Follow-up with urologist. (6) HTN (hypertension) Qualifiers: Hypertension type: unspecified Qualified Code(s): I10 - Essential (primary) hypertension Is this a current diagnosis for this admission?: Yes Plan: Uncontrolled. Will titrate medications.
--- NOTE | 2019-05-17 12:34 | PDOC H&P ---
History of Present Illness Admission Date/PCP: 05/16/19 20:41 MARIE ZACARIAS MD Patient complains of: Leg swelling History of Present Illness: TOBY COLLINS is a 63 year old male patient of Dr. Zacarias who presented to the ED with complain of bilateral leg swelling over preceding two days. Patient reported going to Dr. Zacarias's office but decided to come to the ED due to lots of patients ahead of himself. Patient reported associated shortness of breath. He denied any associated chest pain, palpitation, excessive fluid or salt intake but admitted to excessive ingestion of orange juice. He denied any fever but reported chills and excessive sweating. There is nausea and hiving but denied any vomiting or abdominal pain. His initial evaluation in the ED was significant for severely elevated BUN and creatinine suggestive of chronic kidney failure, hyperkalemia, and his US renal protocol revealed moderate bilateral hydronephrosis. Patient reported history of BPH with LUTS including hesitancy, poor flow, intermittent break in flow , and daily usage of Tamsilosin for awhile. He was advised hospitalization for further evaluation and management. There was request for rn bariatric consultation in view of his hyperkalemia EKG changes and severely elevated serum creatinine. Past Medical History Cardiac Medical History: Reports: Hypertension Renal/ Medical History: Reports: End Stage Renal Disease, Other - BPH with LUTS Past Surgical History Past Surgical History: Reports: Other Social History Smoking Status: Never Smoker Frequency of Alcohol Use: Social Drugs: Marijuana - Advance Directive Resuscitation Status: Full Code Family History Family History: Reviewed & Not Pertinent, Hypertension Parental Family History Reviewed: Yes Children Family History Reviewed: Yes Sibling(s) Family History Reviewed.: Yes Medication/Allergy Home Medications: Amlodipine Besylate [Norvasc 10 mg Tablet] 10 mg PO DAILY #30 tablet 02/24/17 Tamsulosin HCl [Flomax 0.4 mg Cap.sr] 0.4 mg PO DAILY 3 Days #30 02/24/17 Allergies/Adverse Reactions: No Known Allergies Allergy (Verified 10/18/18 09:38) Review of Systems Constitutional: PRESENT: chills, night sweats, weakness Eyes: ABSENT: visual disturbances Ears: ABSENT: hearing changes Nose, Mouth, and Throat: ABSENT: as per HPI, headache(s), mouth pain, sore throat, vertigo Cardiovascular: PRESENT: dyspnea on exertion. ABSENT: chest pain, edema, or thropnea, palpitations, other Respiratory: PRESENT: dyspnea. ABSENT: cough, hemoptysis, sputum Gastrointestinal: PRESENT: bloating, dysphagia, heartburn, nausea Genitourinary: PRESENT: difficulty urinating - due to BPH with LUTS features.. ABSENT: dysuria, hematuria Musculoskeletal: PRESENT: deformity - elated to multiple joints involvement with arthritis Integumentary: ABSENT: rash, wounds Neurological: ABSENT: abnormal gait, abnormal speech, confusion, dizziness, focal weakness, syncope Psychiatric: ABSENT: anxiety, depression, homidical ideation, suicidal ideation Endocrine: ABSENT: cold intolerance, heat intolerance, polydipsia, polyuria Hematologic/Lymphatic: ABSENT: easy bleeding, easy bruising, lymphadenopathy Allergic/Immunologic: ABSENT: seasonal rhinorrhea Physical Exam Vital Signs: Temp Pulse Resp BP Pulse Ox 97.8 F 75 17 176/95 H 100 05/17/19 07:03 05/17/19 07:03 05/17/19 07:03 05/17/19 07:03 05/17/19 07:03 Intake & Output 05/16/19 05/17/19 05/18/19 06:59 06:59 06:59 Intake Total 500 Output Total 7350 Balance -6850 Weight 69.7 kg General appearance: PRESENT: no acute distress, thin Head exam: PRESENT: atraumatic, normocephalic Eye exam: PRESENT: conjunctiva pink, EOMI, PERRLA. ABSENT: scleral icterus Ear exam: PRESENT: normal external ear exam Mouth exam: PRESENT: moist Teeth exam: PRESENT: poor dentation Neck exam: PRESENT: full ROM. ABSENT: carotid bruit, JVD, lymphadenopathy, thyromegaly Respiratory exam: PRESENT: clear to auscultation tessa Cardiovascular exam: PRESENT: RRR, +S1, +S2. ABSENT: diastolic murmur, rubs, systolic murmur Vascular exam: ABSENT: pallor GI/Abdominal exam: PRESENT: normal bowel sounds, soft. ABSENT: distended, guarding, mass, organolmegaly, rebound, tenderness Rectal exam: PRESENT: deferred Gentrourinary exam: PRESENT: indwelling catheter Extremities exam: ABSENT: pedal edema Neurological exam: PRESENT: alert, awake, oriented to person, oriented to place, oriented to time, oriented to situation, CN II-XII grossly intact. ABSENT: motor sensory deficit Psychiatric exam: PRESENT: appropriate affect, normal mood. ABSENT: homicidal ideation, suicidal ideation Skin exam: PRESENT: dry, warm Results Laboratory Results: 05/16/19 17:34 05/17/19 01:25 05/16/19 05/16/19 05/16/19 17:34 17:34 17:34 WBC 6.0 RBC 2.62 L Hgb 7.1 L Hct 21.8 L MCV 83 MCH 27.1 MCHC 32.5 RDW 14.7 H Plt Count 193 Seg Neutrophils % 65.7 Sodium 139.2 Potassium 6.7 H* Chloride 106 Carbon Dioxide 16 L Anion Gap 17 BUN 121 H Creatinine 12.08 H Est GFR ( Amer) 5 L Glucose 92 Calcium 9.7 Total Bilirubin 0.4 AST 27 Alkaline Phosphatase 58 Total Protein 7.8 Albumin 4.6 Urine Color STRAW Urine Appearance CLEAR Urine pH 8.0 Ur Specific [place] 1.009 Urine Protein 30 H Urine Glucose (UA) NEGATIVE Urine Ketones NEGATIVE Urine Blood NEGATIVE Urine Nitrite NEGATIVE Ur Leukocyte Esterase NEGATIVE Urine WBC (Auto) 4 05/17/19 01:25 WBC RBC Hgb Hct MCV MCH MCHC RDW Plt Count Seg Neutrophils % Sodium 140.8 Potassium 5.1 H D Chloride 106 Carbon Dioxide 17 L Anion Gap 18 BUN 115 H Creatinine 11.50 H Est GFR ( Amer) 5 L Glucose 167 H Calcium 9.8 Total Bilirubin AST Alkaline Phosphatase Total Protein Albumin Urine Color Urine Appearance Urine pH Ur Specific [place] Urine Protein Urine Glucose (UA) Urine Ketones Urine Blood Urine Nitrite Ur Leukocyte Esterase Urine WBC (Auto) 05/16/19 17:34 Troponin I < 0.012 NT-Pro-B Natriuret Pep 2950 H Impressions: Chest X-Ray 05/16/19 17:11 IMPRESSION: NO ACUTE RADIOGRAPHIC FINDING IN THE CHEST. Renal Ultrasound 05/16/19 20:35 IMPRESSION: Moderate bilateral hydronephrosis, increased from prior study. Consider CT scan if there is high concern for obstructing stone distally. Assessment & Plan - Diagnosis (1) Acute renal failure Qualifiers: Acute renal failure type: unspecified Qualified Code(s): N17.9 - Acute kidney failure, unspecified Is this a current diagnosis for this admission?: Yes Plan: See covering attending physician for details about care plan. (2) Hyperkalemia Is this a current diagnosis for this admission?: Yes Plan: See covering attending physician for details about care plan. (3) CKD (chronic kidney disease) stage 5, GFR less than 15 ml/min Is this a current diagnosis for this admission?: Yes Plan: See covering attending physician for details about care plan. (4) BPH with obstruction/lower urinary tract symptoms Is this a current diagnosis for this admission?: Yes Plan: See covering attending physician for details about care plan. (5) HTN (hypertension) Qualifiers: Hypertension type: essential hypertension Qualified Code(s): I10 - Essential (primary) hypertension Is this a current diagnosis for this admission?: Yes Plan: See covering attending physician for details about care plan. - Time Time Spent: Greater than 70 Minutes Medications reviewed and adjusted accordingly: Yes Anticipated discharge: Home with Homehealth Within: Other - Inpatient Certification Based on my medical assessment, after consideration of the patient's comorbidities, presenting symptoms, or acuity I expect that the services needed warrant INPATIENT care.: Yes I certify that my determination is in accordance with my understanding of Medicare's requirements for reasonable and necessary INPATIENT services [42 CFR 412.3e].: Yes Medical Necessity: Significant Comorbidiites Make Outpatient Treatment Too Risky, Need Close Monitoring Due to Risk of Patient Decompensation, Need For Continuous Telemetry Monitoring, Risk of Complication if Not Cared For in Hospital, Risk of Diagnosis Which Will Require Inpatient Eval/Care/Monitoring Post Hospital Care: D/C [employer] Documentation - Plan Summary Plan Summary: See covering attending physician for details about care plan.
[2019-05-17] MEDS: FINASTERIDE 5 MG TABLET PO SCH (12:43)
[2019-05-17] MEDS: NORMAL SALINE 1000 ML 1,000 ML IV PRN ×2 (12:43→23:29)
[2019-05-17] MEDS: TAMSULOSIN HCL 0.4 MG CAP.SR.24H PO SCH (17:12)
[2019-05-17] MEDS ORDERED: PATIROMER 8.4 GM SUSP PACKET PO ONE (19:34)
[2019-05-18 05:29] LABS: ABSOLUTE RETICS # 0.036 10^6/uL (0.028-0.122); HEMATOCRIT 23.7 % (37.9-51.0); MEAN CORPUSCULAR HEMOGLOBIN 27.8 pg (27.0-33.4); MEAN CORPUSCULAR HGB CONC 33.8 g/dL (32.0-36.0); MEAN CORPUSCULAR VOLUME 82 fl (80-97); PLATELET COUNT 191 10^3/uL (150-450); RED BLOOD COUNT 2.88 10^6/uL (4.35-5.55); RED CELL DISTRIBUTION WIDTH 14.3 % (11.5-14.0); RETICULOCYTE COUNT (AUTO) 1.24 % (0.66-2.85); WHITE BLOOD COUNT 6.9 10^3/uL (4.0-10.5)
[2019-05-18 05:42] LABS: ANION GAP 17 (5-19); BLOOD UREA NITROGEN 97 mg/dL (7-20); CALCIUM 9.8 mg/dL (8.4-10.2); CARBON DIOXIDE 17 mmol/L (22-30); CHLORIDE 106 mmol/L (98-107); GLUCOSE 107 mg/dL (75-110); IRON(TIBC) 62.3 ug/dL (49-181); PHOSPHORUS 6.1 mg/dL (2.5-4.5); POTASSIUM 5.4 mmol/L (3.6-5.0)
[2019-05-18 07:00] LABS: FOLATE 9.93 ng/mL (>2.76)
[2019-05-18] MEDS: AMLODIPINE BESYLATE 10 MG TABLET PO SCH (09:14)
[2019-05-18] MEDS: FINASTERIDE 5 MG TABLET PO SCH (09:14)
[2019-05-18] MEDS: NORMAL SALINE 1000 ML 1,000 ML IV PRN ×2 (10:00→23:12)
--- NOTE | 2019-05-18 12:27 | PDOC PROGRESS REPORT ---
Subjective Progress Note for:: 05/18/19 Reason For Visit: Patient seen today. He is generally feeling better since admission. Continue to get IV fluids. He is making good urine output with introduction of Lawson catheter though it is a little bit bloody. However he denies any complaints abdominal pains, fever or chills. His appetite is improved with no history of any more nausea. He denies any history of chest pain or shortness of breath. Labs and medications were reviewed with the patient that shows some improvement of his renal functions.Iron studies are adequate. Physical Exam Vital Signs: Temp Pulse Resp BP Pulse Ox 97.2 F 92 18 155/91 H 100 05/18/19 11:19 05/18/19 11:19 05/18/19 11:19 05/18/19 11:19 05/18/19 11:19 Intake & Output 05/17/19 05/18/19 05/19/19 06:59 06:59 06:59 Intake Total 500 4470 Output Total 7350 3540 Balance -6850 930 Weight 69.7 kg 70.7 kg General appearance: PRESENT: no acute distress Respiratory exam: PRESENT: clear to auscultation tessa. ABSENT: crackles Cardiovascular exam: PRESENT: +S1, +S2. ABSENT: rubs GI/Abdominal exam: PRESENT: normal bowel sounds, soft. ABSENT: organomegaly, tenderness Neurological exam: PRESENT: alert, awake, oriented to person, oriented to place Psychiatric exam: PRESENT: appropriate affect Results Laboratory Results: 05/18/19 05:11 05/18/19 05:11 05/18/19 05/18/19 05/18/19 05:11 05:11 05:11 WBC 6.9 RBC 2.88 L Hgb 8.0 L Hct 23.7 L MCV 82 MCH 27.8 MCHC 33.8 RDW 14.3 H Plt Count 191 Retic Count (auto) 1.24 Sodium 139.7 Potassium 5.4 H Chloride 106 Carbon Dioxide 17 L Anion Gap 17 BUN 97 H Creatinine 9.98 H Est GFR ( Amer) 6 L Glucose 107 Calcium 9.8 Phosphorus 6.1 H Magnesium 1.5 L Iron 62.3 TIBC 286 % Saturation 22 Ferritin 179.00 Vitamin B12 471.0 Folate 9.93 PTH Intact 554.7 H 05/16/19 17:34 Troponin I < 0.012 NT-Pro-B Natriuret Pep 2950 H Impressions: Chest X-Ray 05/16/19 17:11 IMPRESSION: NO ACUTE RADIOGRAPHIC FINDING IN THE CHEST. Renal Ultrasound 05/16/19 20:35 IMPRESSION: Moderate bilateral hydronephrosis, increased from prior study. Consider CT scan if there is high concern for obstructing stone distally. Assessment & Plan - Diagnosis (1) Acute renal failure Qualifiers: Acute renal failure type: unspecified Qualified Code(s): N17.9 - Acute kidney failure, unspecified Is this a current diagnosis for this admission?: Yes Plan: Nonoliguric secondary to obstructive uropathy. Renal numbers are improving with introduction of Lawson catheter and IV fluid hydration. Continue on present guidelines. (2) Bilateral hydronephrosis Is this a current diagnosis for this admission?: Yes Plan: In the face of obstructive uropathy from prostatic hypertrophy. Once his renal numbers are better he should be discharged with a Lawson catheter and he should be seeing Dr. Moura/urology for follow-up and surgical relief of his present problems. (3) Anemia Is this a current diagnosis for this admission?: Yes Plan: We will start him on erythropoietin. Discussed adverse effects and patient willing to proceed. (4) Hyperkalemia Is this a current diagnosis for this admission?: Yes Plan: Current potassium is 5.4. Monitor. Advised low potassium diet. (5) BPH with obstruction/lower urinary tract symptoms Is this a current diagnosis for this admission?: Yes Plan: As mentioned earlier. Needs to follow-up with Dr. Moura/urology as an outpatient. (6) HTN (hypertension) Qualifiers: Hypertension type: unspecified Qualified Code(s): I10 - Essential (primary) hypertension Is this a current diagnosis for this admission?: Yes Plan: Improving. Continue to monitor.
[2019-05-18] MEDS: CALCITRIOL 0.25 MCG CAPSULE PO SCH (13:46)
[2019-05-18] MEDS: ACETAMINOPHEN 325 MG TABLET PO PRN (13:46)
[2019-05-18] MEDS ORDERED: EPOETIN ALFA-EPBX 10,000 UNIT/ML VIAL (RENAL) SUBCUT ONE (14:00)
[2019-05-18] MEDS ORDERED: MAGNESIUM SULFATE/D5W 1 GM/100 ML RTUPB IV ONE (15:26)
--- NOTE | 2019-05-18 15:28 | PDOC PROGRESS REPORT ---
Subjective Progress Note for:: 05/18/19 Subjective:: Patient denied any chest pain or difficulty with breathing. No nausea, vomiting or abdominal pain. No reported fever or chills. His urine output is satisfactory but with slight hematuria. Reason For Visit: ACUTE ON CHRONIC KIDNEY FAILURE, HYPERKALEMIA WITH Physical Exam Vital Signs: Temp Pulse Resp BP Pulse Ox 97.2 F 69 18 155/91 H 100 05/18/19 11:19 05/18/19 14:00 05/18/19 11:19 05/18/19 11:19 05/18/19 11:19 Intake & Output 05/17/19 05/18/19 05/19/19 06:59 06:59 06:59 Intake Total 500 4470 1600 Output Total 7350 3540 1100 Balance -6850 930 500 Weight 69.7 kg 70.7 kg General appearance: PRESENT: no acute distress Head exam: PRESENT: atraumatic, normocephalic Eye exam: PRESENT: conjunctiva pink, EOMI, PERRLA. ABSENT: scleral icterus Ear exam: PRESENT: normal external ear exam Mouth exam: PRESENT: moist Teeth exam: PRESENT: poor dentation Respiratory exam: PRESENT: clear to auscultation tessa Cardiovascular exam: PRESENT: RRR. ABSENT: diastolic murmur, rubs, systolic murmur Vascular exam: ABSENT: pallor GI/Abdominal exam: PRESENT: normal bowel sounds, soft. ABSENT: distended, guarding, mass, organolmegaly, rebound, tenderness Gentrourinary exam: PRESENT: indwelling catheter Extremities exam: ABSENT: pedal edema Musculoskeletal exam: PRESENT: normal inspection Neurological exam: PRESENT: alert, awake, oriented to person, oriented to place, oriented to time, oriented to situation, CN II-XII grossly intact. ABSENT: motor sensory deficit Psychiatric exam: PRESENT: appropriate affect, normal mood. ABSENT: homicidal ideation, suicidal ideation Skin exam: PRESENT: dry, warm Results Laboratory Results: 05/18/19 05:11 05/18/19 05:11 05/18/19 05/18/19 05/18/19 05:11 05:11 05:11 WBC 6.9 RBC 2.88 L Hgb 8.0 L Hct 23.7 L MCV 82 MCH 27.8 MCHC 33.8 RDW 14.3 H Plt Count 191 Retic Count (auto) 1.24 Sodium 139.7 Potassium 5.4 H Chloride 106 Carbon Dioxide 17 L Anion Gap 17 BUN 97 H Creatinine 9.98 H Est GFR ( Amer) 6 L Glucose 107 Calcium 9.8 Phosphorus 6.1 H Magnesium 1.5 L Iron 62.3 TIBC 286 % Saturation 22 Ferritin 179.00 Vitamin B12 471.0 Folate 9.93 PTH Intact 554.7 H 05/16/19 17:34 Troponin I < 0.012 NT-Pro-B Natriuret Pep 2950 H Impressions: Chest X-Ray 05/16/19 17:11 IMPRESSION: NO ACUTE RADIOGRAPHIC FINDING IN THE CHEST. Renal Ultrasound 05/16/19 20:35 IMPRESSION: Moderate bilateral hydronephrosis, increased from prior study. Consider CT scan if there is high concern for obstructing stone distally. Assessment & Plan - Diagnosis (1) Acute renal failure Qualifiers: Acute renal failure type: unspecified Qualified Code(s): N17.9 - Acute kidney failure, unspecified Is this a current diagnosis for this admission?: Yes (2) Hyperkalemia Is this a current diagnosis for this admission?: Yes (3) Anemia Is this a current diagnosis for this admission?: Yes (4) BPH with obstruction/lower urinary tract symptoms Is this a current diagnosis for this admission?: Yes (5) HTN (hypertension) Qualifiers: Hypertension type: unspecified Qualified Code(s): I10 - Essential (primary) hypertension Is this a current diagnosis for this admission?: Yes (6) Bilateral hydronephrosis Is this a current diagnosis for this admission?: Yes (7) Hypomagnesemia Is this a current diagnosis for this admission?: Yes Plan: See covering attending physician orders for details about care plan. - Time Time Spent with patient: 35 or more minutes Level of Care: IMCU Medications reviewed and adjusted accordingly: Yes Anticipated discharge: Home Within: Other - Inpatient Certification Based on my medical assessment, after consideration of the patient's comorbidities, presenting symptoms, or acuity I expect that the services needed warrant INPATIENT care.: Yes I certify that my determination is in accordance with my understanding of Medicare's requirements for reasonable and necessary INPATIENT services [42 CFR 412.3e].: Yes Medical Necessity: Significant Comorbidiites Make Outpatient Treatment Too Risky , Need Close Monitoring Due to Risk of Patient Decompensation, Need For IV Fluids, Need For Continuous Telemetry Monitoring, Risk of Complication if Not Cared For in Hospital, Risk of Diagnosis Which Will Require Inpatient Eval/Care/Monitoring Post Hospital Care: D/C [employer] Work[employer] Documentation - Plan Summary Plan Summary: Continue gentle hydration with improvement in his renal indices. Administer Mag sulfate 1 gm IV x 1 dose. Repeat BMP and Mag in AM
[2019-05-18] MEDS: TAMSULOSIN HCL 0.4 MG CAP.SR.24H PO SCH (17:25)
[2019-05-19 05:51] LABS: ANION GAP 14 (5-19); BLOOD UREA NITROGEN 82 mg/dL (7-20); CALCIUM 9.6 mg/dL (8.4-10.2); CARBON DIOXIDE 16 mmol/L (22-30); CHLORIDE 108 mmol/L (98-107); GLUCOSE 92 mg/dL (75-110); POTASSIUM 5.5 mmol/L (3.6-5.0)
--- NOTE | 2019-05-19 09:23 | PDOC PROGRESS REPORT ---
Subjective Progress Note for:: 05/19/19 Subjective:: Patient is currently doing well Denied any leg swelling No chest pain no short of breath Patient is having Lawson catheter in place good urine output Patients have a enlarged prostate supposed to have a procedure done by Dr. gonzalez very noncompliance did not followPatient seen by the Dr. Platt Reason For Visit: ACUTE ON CHRONIC KIDNEY FAILURE, HYPERKALEMIA WITH Physical Exam Vital Signs: Temp Pulse Resp BP Pulse Ox 98.0 F 82 17 151/87 H 100 05/19/19 06:54 05/19/19 06:54 05/19/19 06:54 05/19/19 06:54 05/19/19 06:54 Intake & Output 05/18/19 05/19/19 05/20/19 06:59 06:59 06:59 Intake Total 4470 3490 Output Total 3540 2750 Balance 930 740 Weight 70.7 kg 70.4 kg General appearance: PRESENT: no acute distress, well-developed, well-nourished Head exam: PRESENT: atraumatic, normocephalic Eye exam: PRESENT: conjunctiva pink, EOMI, PERRLA. ABSENT: scleral icterus Ear exam: PRESENT: normal external ear exam Mouth exam: PRESENT: moist, tongue midline Neck exam: PRESENT: full ROM. ABSENT: carotid bruit, JVD, lymphadenopathy, thyromegaly Respiratory exam: PRESENT: clear to auscultation tessa Cardiovascular exam: PRESENT: RRR. ABSENT: diastolic murmur, rubs, systolic murmur Pulses: PRESENT: normal dorsalis pedis pul, +2 pedal pulses bilateral Vascular exam: PRESENT: normal capillary refill GI/Abdominal exam: PRESENT: normal bowel sounds, soft. ABSENT: distended, guarding, mass, organolmegaly, rebound, tenderness Rectal exam: PRESENT: deferred Musculoskeletal exam: PRESENT: ambulatory Neurological exam: PRESENT: alert, awake, oriented to person, oriented to place, oriented to time, oriented to situation, CN II-XII grossly intact. ABSENT: motor sensory deficit Psychiatric exam: PRESENT: appropriate affect, normal mood. ABSENT: homicidal i deation, suicidal ideation Skin exam: PRESENT: dry, intact, warm. ABSENT: cyanosis, rash Results Laboratory Results: 05/18/19 05:11 05/19/19 04:52 05/19/19 04:52 Sodium 138.0 Potassium 5.5 H Chloride 108 H Carbon Dioxide 16 L Anion Gap 14 BUN 82 H Creatinine 8.69 H Est GFR ( Amer) 8 L Glucose 92 Calcium 9.6 Magnesium 1.7 05/16/19 17:34 Troponin I < 0.012 NT-Pro-B Natriuret Pep 2950 H Impressions: Chest X-Ray 05/16/19 17:11 IMPRESSION: NO ACUTE RADIOGRAPHIC FINDING IN THE CHEST. Renal Ultrasound 05/16/19 20:35 IMPRESSION: Moderate bilateral hydronephrosis, increased from prior study. Consider CT scan if there is high concern for obstructing stone distally. Assessment & Plan - Diagnosis (1) Acute renal failure Qualifiers: Acute renal failure type: unspecified Qualified Code(s): N17.9 - Acute kidney failure, unspecified Is this a current diagnosis for this admission?: Yes Plan: Most likely due to obstructive uropathy continues to Lawson catheter follow with the Dr. Platt (2) Anemia Is this a current diagnosis for this admission?: Yes (3) Bilateral hydronephrosis Is this a current diagnosis for this admission?: Yes Plan: Continues to Lawson catheter follow-up urology will make appointment discussed with the hospital dye range feeder to call the urology office today (4) Hyperkalemia Is this a current diagnosis for this admission?: Yes Plan: Will discuss with the Dr. Platt about the hyperkalemia due to the chronic kidne y disease consider the newer medications to take daily for the next 1 week (5) BPH with obstruction/lower urinary tract symptoms Is this a current diagnosis for this admission?: Yes Plan: Continues to Flomax continues to catheter - Time Time Spent with patient: 15-24 minutes Level of Care: IMCU Medications reviewed and adjusted accordingly: Yes Anticipated discharge: Home Within: within 24 hours - Plan Summary Plan Summary: Discussed with the patient and the patient's mother regarding the patient's current conditions
[2019-05-19] MEDS: SODIUM BICARBONATE 650 MG TABLET PO SCH ×2 (10:56→21:33)
[2019-05-19] MEDS: AMLODIPINE BESYLATE 10 MG TABLET PO SCH (10:56)
[2019-05-19] MEDS: FINASTERIDE 5 MG TABLET PO SCH (10:56)
[2019-05-19] MEDS: CALCITRIOL 0.25 MCG CAPSULE PO SCH (10:56)
--- NOTE | 2019-05-19 16:31 | PDOC PROGRESS REPORT ---
Subjective Progress Note for:: 05/19/19 Reason For Visit: Patient continuing to feel better. Shortness of breath is completely resolved. Good appetite. Is ambulatory. Labs and medications were reviewed with the patient that shows steady though slow improvement of his renal functions. Still walking around with Lawson catheter and the hematuria is a whole lot better. Physical Exam Vital Signs: Temp Pulse Resp BP Pulse Ox 98.0 F 93 18 143/94 H 100 05/19/19 15:20 05/19/19 15:20 05/19/19 15:20 05/19/19 15:20 05/19/19 15:20 Intake & Output 05/18/19 05/19/19 05/20/19 06:59 06:59 06:59 Intake Total 4470 3490 440 Output Total 3540 2750 1400 Balance 930 740 -960 Weight 70.7 kg 70.4 kg 70.4 kg General appearance: PRESENT: no acute distress Respiratory exam: PRESENT: clear to auscultation tessa. ABSENT: crackles Cardiovascular exam: PRESENT: +S1, +S2. ABSENT: rubs GI/Abdominal exam: PRESENT: normal bowel sounds, soft. ABSENT: organomegaly, tenderness Extremities exam: ABSENT: pedal edema Neurological exam: PRESENT: alert, awake, oriented to person, oriented to place Psychiatric exam: PRESENT: appropriate affect Results Laboratory Results: 05/18/19 05:11 05/19/19 04:52 05/19/19 04:52 Sodium 138.0 Potassium 5.5 H Chloride 108 H Carbon Dioxide 16 L Anion Gap 14 BUN 82 H Creatinine 8.69 H Est GFR ( Amer) 8 L Glucose 92 Calcium 9.6 Magnesium 1.7 05/16/19 17:34 Troponin I < 0.012 NT-Pro-B Natriuret Pep 2950 H Impressions: Chest X-Ray 05/16/19 17:11 IMPRESSION: NO ACUTE RADIOGRAPHIC FINDING IN THE CHEST. Renal Ultrasound 05/16/19 20:35 IMPRESSION: Moderate bilateral hydronephrosis, increased from prior study. Consider CT scan if there is high concern for obstructing stone distally. Assessment & Plan - Diagnosis (1) Acute renal failure Qualifiers: Acute renal failure type: unspecified Qualified Code(s): N17.9 - Acute kidney failure, unspecified Is this a current diagnosis for this admission?: Yes Plan: Nonoliguric secondary to obstructive uropathy. Renal numbers are improving with introduction of Lawson catheter and IV fluid hydration. Continue on present guidelines.At this point I believe he can be discharged home tomorrow and follow-up with us as an outpatient with labs. However he needs to get an appointment with Dr. Moura to be seen as an outpatient with his indwelling Lawson catheter which will need to be taken out after he has been evaluated by Dr. oMura. Patient mentions that this time he will keep the appointment and he will not be so hardheaded as he has been in the past. (2) Bilateral hydronephrosis Is this a current diagnosis for this admission?: Yes Plan: In the face of obstructive uropathy from prostatic hypertrophy. Once his renal numbers are better he should be discharged with a Lawson catheter and he should be seeing Dr. Moura/urology for follow-up and surgical relief of his present problems. (3) Anemia Is this a current diagnosis for this admission?: Yes Plan: We will start him on erythropoietin. Discussed adverse effects and patient willing to proceed. (4) Hyperkalemia Is this a current diagnosis for this admission?: Yes Plan: Current potassium is 5.5. Monitor. Advised low potassium diet.Start daily Ve ltassa. (5) BPH with obstruction/lower urinary tract symptoms Is this a current diagnosis for this admission?: Yes Plan: As mentioned earlier. Needs to follow-up with Dr. Moura/urology as an outpatient. (6) HTN (hypertension) Qualifiers: Hypertension type: unspecified Qualified Code(s): I10 - Essential (primary) hypertension Is this a current diagnosis for this admission?: Yes Plan: Improving. Continue to monitor.
[2019-05-19] MEDS: PATIROMER 8.4 GM SUSP PACKET PO SCH (18:45)
[2019-05-19] MEDS: TAMSULOSIN HCL 0.4 MG CAP.SR.24H PO SCH (18:45)
[2019-05-20 06:03] LABS: ANION GAP 15 (5-19); BLOOD UREA NITROGEN 78 mg/dL (7-20); CALCIUM 9.8 mg/dL (8.4-10.2); CARBON DIOXIDE 16 mmol/L (22-30); CHLORIDE 105 mmol/L (98-107); GLUCOSE 90 mg/dL (75-110); POTASSIUM 5.7 mmol/L (3.6-5.0)
[2019-05-20] MEDS ORDERED: SODIUM POLYSTYRENE SULFONATE 15 GM/60 ML PO ONE (08:30)
[2019-05-20] MEDS: CALCITRIOL 0.25 MCG CAPSULE PO SCH (09:36)
[2019-05-20] MEDS: AMLODIPINE BESYLATE 10 MG TABLET PO SCH (09:36)
[2019-05-20] MEDS: FINASTERIDE 5 MG TABLET PO SCH (09:36)
[2019-05-20] MEDS: SODIUM BICARBONATE 650 MG TABLET PO SCH ×3 (09:36→21:23)
[2019-05-20] MEDS: NORMAL SALINE 1000 ML 1,000 ML IV PRN (09:37)
--- NOTE | 2019-05-20 10:53 | PDOC PROGRESS REPORT ---
Subjective Progress Note for:: 05/20/19 Subjective:: Patient is currently doing well His potassium is still 5.7 Patient's denied any chest pain no short of breath Reason For Visit: ACUTE ON CHRONIC KIDNEY FAILURE, HYPERKALEMIA WITH Physical Exam Vital Signs: Temp Pulse Resp BP Pulse Ox 98.1 F 87 18 135/77 H 100 05/20/19 08:31 05/20/19 08:31 05/20/19 08:31 05/20/19 08:31 05/20/19 08:31 Intake & Output 05/19/19 05/20/19 05/21/19 06:59 06:59 06:59 Intake Total 3490 920 Output Total 2750 3900 Balance 740 -2980 Weight 70.4 kg 68.4 kg General appearance: PRESENT: no acute distress, well-developed, well-nourished Head exam: PRESENT: atraumatic, normocephalic Eye exam: PRESENT: conjunctiva pink, EOMI, PERRLA. ABSENT: scleral icterus Ear exam: PRESENT: normal external ear exam Mouth exam: PRESENT: moist, tongue midline Neck exam: PRESENT: full ROM. ABSENT: carotid bruit, JVD, lymphadenopathy, thyromegaly Respiratory exam: PRESENT: clear to auscultation tessa Cardiovascular exam: PRESENT: RRR. ABSENT: diastolic murmur, rubs, systolic murmur Pulses: PRESENT: normal dorsalis pedis pul, +2 pedal pulses bilateral Vascular exam: PRESENT: normal capillary refill GI/Abdominal exam: PRESENT: normal bowel sounds, soft. ABSENT: distended, guarding, mass, organolmegaly, rebound, tenderness Rectal exam: PRESENT: deferred Neurological exam: PRESENT: alert, awake, oriented to person, oriented to place, oriented to time, oriented to situation, CN II-XII grossly intact. ABSENT: motor sensory deficit Psychiatric exam: PRESENT: appropriate affect, normal mood. ABSENT: homicidal ideation, suicidal ideation Skin exam: PRESENT: dry, intact, warm. ABSENT: cyanosis, rash Results Laboratory Results: 05/18/19 05:11 05/20/19 05:27 05/20/19 05:27 Sodium 136.2 L Potassium 5.7 H Chloride 105 Carbon Dioxide 16 L Anion Gap 15 BUN 78 H Creatinine 8.40 H Est GFR ( Amer) 8 L Glucose 90 Calcium 9.8 05/16/19 17:34 Troponin I < 0.012 NT-Pro-B Natriuret Pep 2950 H Impressions: Chest X-Ray 05/16/19 17:11 IMPRESSION: NO ACUTE RADIOGRAPHIC FINDING IN THE CHEST. Renal Ultrasound 05/16/19 20:35 IMPRESSION: Moderate bilateral hydronephrosis, increased from prior study. Consider CT scan if there is high concern for obstructing stone distally. Assessment & Plan - Diagnosis (1) Acute renal failure Qualifiers: Acute renal failure type: unspecified Qualified Code(s): N17.9 - Acute kidney failure, unspecified Is this a current diagnosis for this admission?: Yes Plan: As per discussed with Dr. Platt continues to IV fluid for the next 24 hours and hopefully discharge tomorrow (2) Anemia Is this a current diagnosis for this admission?: Yes (3) Bilateral hydronephrosis Is this a current diagnosis for this admission?: Yes Plan: Have appointment to see urology next week (4) Hyperkalemia Is this a current diagnosis for this admission?: Yes Plan: We will give her 1 dose of Kayexalate (5) BPH with obstruction/lower urinary tract symptoms Is this a current diagnosis for this admission?: Yes Plan: Follow with the outpatients urology next week - Time Time Spent with patient: 15-24 minutes Level of Care: IMCU Medications reviewed and adjusted accordingly: Yes Anticipated discharge: Home Within: within 24 hours - Plan Summary Plan Summary: Discussed with the nursing staff regarding the all plan discussed with the patient
--- NOTE | 2019-05-20 12:38 | PDOC PROGRESS REPORT ---
Subjective Progress Note for:: 05/20/19 Reason For Visit: Patient doing well. Tolerating Lawson catheter. Unfortunately fluids were discontinued yesterday and has been restarted today. Labs and medications were reviewed with the patient that shows stable creatinine. However his potassium remains high. Yet to start on Veltassa. Discussions were done with Dr. Webb. Physical Exam Vital Signs: Temp Pulse Resp BP Pulse Ox 98.1 F 87 18 135/77 H 100 05/20/19 08:31 05/20/19 08:31 05/20/19 08:31 05/20/19 08:31 05/20/19 08:31 Intake & Output 05/19/19 05/20/19 05/21/19 06:59 06:59 06:59 Intake Total 3490 920 Output Total 2750 3900 Balance 740 -2980 Weight 70.4 kg 68.4 kg General appearance: PRESENT: no acute distress Respiratory exam: PRESENT: clear to auscultation tessa. ABSENT: crackles Cardiovascular exam: PRESENT: +S1, +S2. ABSENT: rubs GI/Abdominal exam: PRESENT: normal bowel sounds, soft. ABSENT: organomegaly, tenderness Extremities exam: ABSENT: pedal edema Neurological exam: PRESENT: alert, awake, oriented to person, oriented to place, oriented to time Psychiatric exam: PRESENT: appropriate affect Skin exam: ABSENT: cyanosis, erythema, mottled, rash Results Laboratory Results: 05/18/19 05:11 05/20/19 05:27 05/20/19 05:27 Sodium 136.2 L Potassium 5.7 H Chloride 105 Carbon Dioxide 16 L Anion Gap 15 BUN 78 H Creatinine 8.40 H Est GFR ( Amer) 8 L Glucose 90 Calcium 9.8 05/16/19 17:34 Troponin I < 0.012 NT-Pro-B Natriuret Pep 2950 H Impressions: Chest X-Ray 05/16/19 17:11 IMPRESSION: NO ACUTE RADIOGRAPHIC FINDING IN THE CHEST. Renal Ultrasound 05/16/19 20:35 IMPRESSION: Moderate bilateral hydronephrosis, increased from prior study. Consider CT scan if there is high concern for obstructing stone distally. Assessment & Plan - Diagnosis (1) Acute renal failure Qualifiers: Acute renal failure type: unspecified Qualified Code(s): N17.9 - Acute kidney failure, unspecified Is this a current diagnosis for this admission?: Yes Plan: Nonoliguric secondary to obstructive uropathy. Renal numbers are improving with introduction of Lawson catheter and IV fluid hydration. Continue on present guidelines.At this point I believe he can be discharged home tomorrow and follow-up with us as an outpatient with labs. However he needs to get an appointment with Dr. Moura to be seen as an outpatient with his indwelling Lawson catheter which will need to be taken out after he has been evaluated by Dr. Moura. Patient mentions that this time he will keep the appointment and he will not be so hardheaded as he has been in the past.Advised the patient that he should follow-up with me in my office in about 10 days time with labs. (2) Bilateral hydronephrosis Is this a current diagnosis for this admission?: Yes Plan: In the face of obstructive uropathy from prostatic hypertrophy. Once his renal numbers are better he should be discharged with a Lawson catheter and he should be seeing Dr. Moura/urology for follow-up and surgical relief of his present problems. (3) Anemia Is this a current diagnosis for this admission?: Yes Plan: We will start him on erythropoietin. Discussed adverse effects and patient willing to proceed.He should be following with us in a week time to continue getting his erythropoietin as an outpatient in my office. (4) Hyperkalemia Is this a current diagnosis for this admission?: Yes Plan: See response to Veltassa. Kayexalate has been ordered by Dr. Webb in the meanwhile.Patient should be discharged home on Veltassa or he should get samples of lokelma from Dr. Webb. (5) BPH with obstruction/lower urinary tract symptoms Is this a current diagnosis for this admission?: Yes Plan: As mentioned earlier. Needs to follow-up with Dr. Moura/urology as an outpatient. (6) HTN (hypertension) Qualifiers: Hypertension type: unspecified Qualified Code(s): I10 - Essential (primary) hypertension Is this a current diagnosis for this admission?: Yes Plan: Improving. Continue to monitor.
[2019-05-20] MEDS: PATIROMER 8.4 GM SUSP PACKET PO SCH (17:22)
[2019-05-20] MEDS: TAMSULOSIN HCL 0.4 MG CAP.SR.24H PO SCH (17:24)
[2019-05-21] MEDS: SODIUM BICARBONATE 650 MG TABLET PO SCH ×2 (05:11→13:46)
[2019-05-21] MEDS: NORMAL SALINE 1000 ML 1,000 ML IV PRN (05:12)
[2019-05-21 06:32] LABS: ANION GAP 13 (5-19); BLOOD UREA NITROGEN 72 mg/dL (7-20); CALCIUM 9.3 mg/dL (8.4-10.2); CARBON DIOXIDE 19 mmol/L (22-30); CHLORIDE 104 mmol/L (98-107); GLUCOSE 104 mg/dL (75-110); POTASSIUM 5.2 mmol/L (3.6-5.0)
[2019-05-21] MEDS: FINASTERIDE 5 MG TABLET PO SCH (10:30)
[2019-05-21] MEDS: CALCITRIOL 0.25 MCG CAPSULE PO SCH (10:30)
[2019-05-21] MEDS: AMLODIPINE BESYLATE 10 MG TABLET PO SCH (10:30)
--- NOTE | 2019-05-21 11:06 | PDOC DISCHARGE SUMMARY ---
Impression - Admit/DC Date/PCP Admission Date/Primary Care Provider: 05/16/19 20:41 MARIE ZACARIAS MD Discharge Date: 05/21/19 - Discharge Diagnosis (1) Acute renal failure Is this a current diagnosis for this admission?: Yes (2) Anemia Is this a current diagnosis for this admission?: Yes (3) Bilateral hydronephrosis Is this a current diagnosis for this admission?: Yes (4) Hyperkalemia Is this a current diagnosis for this admission?: Yes (5) BPH with obstruction/lower urinary tract symptoms Is this a current diagnosis for this admission?: Yes - Additional Information Resuscitation Status: Full Code Discharge Activity: Activity As Tolerated Referrals: KYLIE GARCIA MD [NO LOCAL MD] - 05/26/19 1:15 pm (f/u with dr platt in 1 wk) MARIE ZACARIAS MD [Primary Care Provider] - 05/27/19 9:30 am Ziyad PLATT MD [ACTIVE STAFF] - Prescriptions: Tamsulosin HCl [Flomax 0.4 mg Cap.sr] 0.4 mg PO PCSUPPER #30 cap.sr.24h Sodium Polystyrene Sulfonate [Kayexalate 15 Gm/60 Ml Susp 60 Ml] 15 gm PO DAILY 15 Days #1 bottle Finasteride [Proscar 5 mg Tablet] 5 mg PO DAILY #30 tablet Calcitriol [Rocaltrol 0.25 mcg Capsule] 0.25 mcg PO DAILY #30 capsule Sodium Bicarbonate [Sodium Bicarbonate 650 mg Tablet] 1,300 mg PO Q8 #90 tablet Home Medications: Amlodipine Besylate [Norvasc 10 mg Tablet] 10 mg PO DAILY #30 tablet 02/24/17 Tamsulosin HCl [Flomax 0.4 mg Cap.sr] 0.4 mg PO DAILY 3 Days #30 02/24/17 Calcitriol [Rocaltrol 0.25 mcg Capsule] 0.25 mcg PO DAILY #30 capsule 05/21/19 Finasteride [Proscar 5 mg Tablet] 5 mg PO DAILY #30 tablet 05/21/19 Sodium Bicarbonate [Sodium Bicarbonate 650 mg Tablet] 1,300 mg PO Q8 #90 tablet 05/21/19 Sodium Polystyrene Sulfonate [Kayexalate 15 Gm/60 Ml Susp 60 Ml] 15 gm PO DAILY 15 Days #1 bottle 05/21/19 Tamsulosin HCl [Flomax 0.4 mg Cap.sr] 0.4 mg PO PCSUPPER #30 cap.sr.24h 05/21/19 History of Present Illiness History of Present Illness: TOBY COLLINS is a 63 year old male Patient was admitting in the hospital for bilateral leg swelling and shortness of the breath patient have ongoing issue with the kidney problems and prostate issue and a very noncompliance in the emergency department patient found acute renal failure and hyperkalemia and admitting in the hospital and consult the nephrology Hospital Course Hospital Course: This is a 63-year-old male with a history of the chronic kidney disease history of the benign prostatic hypertrophy and a history of the hyperkalemia came to the emergency departments from the office because of the bilateral leg swelling and shortness of the breath and patients found to be acute renal failure and patients found the elevated potassiums and hydronephrosis bilaterally Patient was put in IMCU start on IV fluid placed the Lawson catheter correct the potassiums and seen by Dr. Platt the nephrology Patient's leg swelling is all resolved Patient with no short of breath Patient's kidney function is also improving According to the Dr. Platt patient should follow-up with the urologist as an outpatient which already make appointment patient is a noncompliance to follow but this time patient is going to follow-up with them next week and continues to Lawson catheter until the see the nephrology Patient's potassium is also coming down to 5.2 range and discussed with the patient about low potassium diet Dr. Platt suggested continues to Kayexalate's once a day until the patient get the corrected with the prostate issues and repeat the blood work next week Patient is otherwise walking the hallway without any problems Patient's denied any chest pain no short of breath No issue with the Lawson catheter Patient's other lab is all stable Physical Exam Vital Signs: Temp Pulse Resp BP Pulse Ox 97.4 F 83 18 134/75 H 100 05/21/19 08:52 05/21/19 08:52 05/21/19 08:52 05/21/19 08:52 05/21/19 08:52 Intake & Output 05/20/19 05/21/19 05/22/19 06:59 06:59 06:59 Intake Total 920 3036 Output Total 3900 3800 Balance -2980 -764 Weight 68.4 kg 69.4 kg General appearance: PRESENT: no acute distress, well-developed, well-nourished Head exam: PRESENT: atraumatic, normocephalic Eye exam: PRESENT: conjunctiva pink, EOMI, PERRLA. ABSENT: scleral icterus Ear exam: PRESENT: normal external ear exam Mouth exam: PRESENT: moist, tongue midline Neck exam: ABSENT: carotid bruit, JVD, lymphadenopathy, thyromegaly Respiratory exam: PRESENT: clear to auscultation tessa. ABSENT: rales, rhonchi, wheezes Cardiovascular exam: PRESENT: RRR. ABSENT: diastolic murmur, rubs, systolic murmur Pulses: PRESENT: normal dorsalis pedis pul Vascular exam: PRESENT: normal capillary refill GI/Abdominal exam: PRESENT: normal bowel sounds, soft. ABSENT: distended, guarding, mass, organolmegaly, rebound, tenderness Rectal exam: PRESENT: deferred Extremities exam: PRESENT: full ROM. ABSENT: calf tenderness, clubbing, pedal edema Neurological exam: PRESENT: alert, awake, oriented to person, oriented to place, oriented to time, oriented to situation, CN II-XII grossly intact. ABSENT: motor sensory deficit Psychiatric exam: PRESENT: appropriate affect, normal mood. ABSENT: homicidal ideation, suicidal ideation Skin exam: PRESENT: dry, intact, warm. ABSENT: cyanosis, rash Results Laboratory Results: WBC 6.9 10^3/uL (4.0-10.5) 05/18/19 05:11 RBC 2.88 10^6/uL (4.35-5.55) L 05/18/19 05:11 Hgb 8.0 g/dL (13.5-17.0) L 05/18/19 05:11 Hct 23.7 % (37.9-51.0) L 05/18/19 05:11 MCV 82 fl (80-97) 05/18/19 05:11 MCH 27.8 pg (27.0-33.4) 05/18/19 05:11 MCHC 33.8 g/dL (32.0-36.0) 05/18/19 05:11 RDW 14.3 % (11.5-14.0) H 05/18/19 05:11 Plt Count 191 10^3/uL (150-450) 05/18/19 05:11 Lymph % (Auto) 15.7 % (13-45) 05/16/19 17:34 [place] % (Auto) 8.8 % (3-13) 05/16/19 17:34 Eos % (Auto) 8.9 % (0-6) H 05/16/19 17:34 Baso % (Auto) 0.9 % (0-2) 05/16/19 17:34 Reticulocyte # 0.036 10^6/uL (0.028-0.122) 05/18/19 05:11 Absolute Neuts (auto) 3.9 10^3/uL (1.7-8.2) 05/16/19 17:34 Absolute Lymphs (auto) 0.9 10^3/uL (0.5-4.7) 05/16/19 17:34 Absolute Monos (auto) 0.5 10^3/uL (0.1-1.4) 05/16/19 17:34 Absolute Eos (auto) 0.5 10^3/uL (0.0-0.6) 05/16/19 17:34 Absolute Basos (auto) 0.1 10^3/uL (0.0-0.2) 05/16/19 17:34 Seg Neutrophils % 65.7 % (42-78) 05/16/19 17:34 Retic Count (auto) 1.24 % (0.66-2.85) 05/18/19 05:11 Sodium 136.1 mmol/L (137-145) L 05/21/19 06:00 Potassium 5.2 mmol/L (3.6-5.0) H 05/21/19 06:00 Chloride 104 mmol/L (98-107) 05/21/19 06:00 Carbon Dioxide 19 mmol/L (22-30) L 05/21/19 06:00 Anion Gap 13 (5-19) 05/21/19 06:00 BUN 72 mg/dL (7-20) H 05/21/19 06:00 Creatinine 7.18 mg/dL (0.52-1.25) H 05/21/19 06:00 Est GFR ( Amer) 9 (>60) L 05/21/19 06:00 Est GFR (MDRD) Non-Af 8 (>60) L 05/21/19 06:00 Glucose 104 mg/dL (75-110) 05/21/19 06:00 Calcium 9.3 mg/dL (8.4-10.2) 05/21/19 06:00 Phosphorus 6.1 mg/dL (2.5-4.5) H 05/18/19 05:11 Magnesium 1.7 mg/dL (1.6-2.3) 05/19/19 04:52 Iron 62.3 ug/dL (49-181) 05/18/19 05:11 TIBC 286 ug/dL (250-450) 05/18/19 05:11 % Saturation 22 % 05/18/19 05:11 Ferritin 179.00 ng/mL (17.9-464.0) 05/18/19 05:11 Total Bilirubin 0.4 mg/dL (0.2-1.3) 05/16/19 17:34 Direct Bilirubin 0.4 mg/dL (0.0-0.4) 05/16/19 17:34 Neonat Total Bilirubin Not Reportable 05/16/19 17:34 Neonat Direct Bilirubin Not Reportable 05/16/19 17:34 Neonat Indirect Bili Not Reportable 05/16/19 17:34 AST 27 U/L (17-59) 05/16/19 17:34 ALT 31 U/L (<50) 05/16/19 17:34 Alkaline Phosphatase 58 U/L (38-126) 05/16/19 17:34 Troponin I < 0.012 ng/mL 05/16/19 17:34 NT-Pro-B Natriuret Pep 2950 pg/mL (<125) H 05/16/19 17:34 Total Protein 7.8 g/dL (6.3-8.2) 05/16/19 17:34 Albumin 4.6 g/dL (3.5-5.0) 05/16/19 17:34 Vitamin B12 471.0 pg/mL (239-931) 05/18/19 05:11 Folate 9.93 ng/mL (>2.76) 05/18/19 05:11 PTH Intact 554.7 pg/mL (10.0-65.0) H 05/18/19 05:11 Urine Color STRAW 05/16/19 17:34 Urine Appearance CLEAR 05/16/19 17:34 Urine pH 8.0 (5.0-9.0) 05/16/19 17:34 Ur Specific [place] 1.009 05/16/19 17:34 Urine Protein 30 mg/dL (NEGATIVE) H 05/16/19 17:34 Urine Glucose (UA) NEGATIVE mg/dL (NEGATIVE) 05/16/19 17:34 Urine Ketones NEGATIVE mg/dL (NEGATIVE) 05/16/19 17:34 Urine Blood NEGATIVE (NEGATIVE) 05/16/19 17:34 Urine Nitrite NEGATIVE (NEGATIVE) 05/16/19 17:34 Urine Bilirubin NEGATIVE (NEGATIVE) 05/16/19 17:34 Urine Urobilinogen NEGATIVE mg/dL (<2.0) 05/16/19 17:34 Ur Leukocyte Esterase NEGATIVE (NEGATIVE) 05/16/19 17:34 Urine WBC (Auto) 4 /HPF 05/16/19 17:34 Urine Mucus (Auto) RARE /LPF 05/16/19 17:34 Urine Ascorbic Acid NEGATIVE (NEGATIVE) 05/16/19 17:34 05/16/19 17:34 Troponin I < 0.012 NT-Pro-B Natriuret Pep 2950 H Impressions: Chest X-Ray 05/16/19 17:11 IMPRESSION: NO ACUTE RADIOGRAPHIC FINDING IN THE CHEST. Renal Ultrasound 05/16/19 20:35 IMPRESSION: Moderate bilateral hydronephrosis, increased from prior study. Consider CT scan if there is high concern for obstructing stone distally. Plan Time Spent: Greater than 30 Minutes - Follow in our office 1 week Repeat the CBC and Chem-7 Follow-up with the Dr. Platt Follow-up with the Dr. gonzalez urologist on May 26 Arrange the [facility] Stroke Is this a Stroke Patient?: No Acute Heart Failure - Is this a Heart Failure Patient?: No
[2019-05-21 13:11] VITALS: BP 136/89
== END 2019-05-21 14:49 | disposition home or self-care (01) | DRG 683 ==
LOC: ER 15:16 → EH 20:41 → 3W 23:22
PROVIDERS: ADMIT Family Medicine; ATTEND Family Medicine
DX: N17.9 Acute kidney failure, unspecified (principal); I12.0 Hypertensive chronic kidney disease with stage 5 chronic kidney disease or end stage renal disease; D63.1 Anemia in chronic kidney disease; N13.30 Unspecified hydronephrosis; E87.5 Hyperkalemia; N40.1 Benign prostatic hyperplasia with lower urinary tract symptoms; N18.5 Chronic kidney disease, stage 5; M19.90 Unspecified osteoarthritis, unspecified site; E83.42 Hypomagnesemia; E86.0 Dehydration; Z91.19 Patient's noncompliance with other medical treatment and regimen; Z59.9 Problem related to housing and economic circumstances, unspecified; Z82.49 Family history of ischemic heart disease and other diseases of the circulatory system
CPT/HCPCS: 36415; 51702; 71046; 76775; 80048; 80053; 81001; 82607; 82728; 82746; 83540; 83550; 83735; 83880; 83970; 84100; 84484; 85025; 85027; 85045; 93005; 93010; 96374; 96375; 99285; J0610; J1815; J1940; J3475; J3490; J7030; J7070; Q5105

== ENCOUNTER 2019-05-22 09:48 | Emergency (ER) | payer BC ==
--- NOTE | 2019-05-22 10:09 | ER Document Report ---
ED Medical Screen (RME) - General Chief Complaint: Abdominal Pain Stated Complaint: ABDOMINAL PAIN Time Seen by Provider: 05/22/19 10:04 Primary Care Provider: MARIE ZACARIAS MD [Primary Care Provider] - Follow up as needed Mode of Arrival: Wheelchair Information source: Patient Notes: 63-year-old male patient presents emergency department chief complaint of left lower quadrant abdominal pain. Patient reports he continues to feel a bulge in that area. He denies any history of hernia. He does state he was just discharged from here yesterday as he was inpatient for 1 week with some renal issues. Patient denies any nausea, vomiting, diarrhea. He does report that the "bulge" comes and goes. I have greeted and performed a rapid initial assessment of this patient. A comprehensive ED assessment and evaluation of the patient, analysis of test results and completion of the medical decision making process will be conducted by additional ED providers. I have specifically instructed the patient or family members with the patient to immediately return to any nursing staff should anything change in the patient's condition or with their chief complaint. TRAVEL OUTSIDE OF THE [place] IN LAST 30 DAYS: No - Related Data Allergies/Adverse Reactions: No Known Allergies Allergy (Verified 05/22/19 10:01) Past Medical History - Past Medical History Cardiac Medical History: Reports: Hx Hypertension Renal/ Medical History: Reports: Hx End Stage Renal Disease. Denies: Hx Peritoneal Dialysis Past Surgical History: Reports: Other Physical Exam - Vital signs Vitals: Temp Pulse Resp BP Pulse Ox 97.4 F 81 16 120/72 100 05/22/19 09:53 05/22/19 09:53 05/22/19 09:53 05/22/19 09:53 05/22/19 09:53 Course - Vital Signs Vital signs: Temp Pulse Resp BP Pulse Ox 97.4 F 81 16 120/72 100 05/22/19 09:53 05/22/19 09:53 05/22/19 09:53 05/22/19 09:53 05/22/19 09:53 Doctor's Discharge - Discharge Referrals: MARIE ZACARIAS MD [Primary Care Provider] - Follow up as needed
[2019-05-22 10:46] LABS: ABSOLUTE BASOPHILS # (AUTO) 0.1 10^3/uL (0.0-0.2); ABSOLUTE EOSINOPHILS # (AUTO) 0.6 10^3/uL (0.0-0.6); ABSOLUTE LYMPHOCYTES (AUTO) 0.7 10^3/uL (0.5-4.7); ABSOLUTE MONOCYTES (AUTO) 0.7 10^3/uL (0.1-1.4); ABSOLUTE NEUT (AUTO) 4.1 10^3/uL (1.7-8.2); BASOPHILS % (AUTO) 1.2 % (0-2); EOSINOPHILS % (AUTO) 9.5 % (0-6); HEMATOCRIT 22.2 % (37.9-51.0); MEAN CORPUSCULAR HEMOGLOBIN 27.8 pg (27.0-33.4); MEAN CORPUSCULAR HGB CONC 33.6 g/dL (32.0-36.0); MEAN CORPUSCULAR VOLUME 83 fl (80-97); MONOCYTES % (AUTO) 10.9 % (3-13); PLATELET COUNT 230 10^3/uL (150-450); RED BLOOD COUNT 2.68 10^6/uL (4.35-5.55); RED CELL DISTRIBUTION WIDTH 14.1 % (11.5-14.0); SEGMENTED NEUTROPHILS % (AUTO) 66.4 % (42-78); TOTAL CELLS COUNTED % (AUTO) 100 %; WHITE BLOOD COUNT 6.2 10^3/uL (4.0-10.5)
[2019-05-22 10:49] LABS: HEMOGLOBIN 7.5 g/dL (13.5-17.0)
[2019-05-22 11:09] LABS: ALBUMIN 4.2 g/dL (3.5-5.0); ALKALINE PHOSPHATASE 53 U/L (38-126); ANION GAP 13 (5-19); ASPARTATE AMINO TRANSFERASE 24 U/L (17-59); BILIRUBIN,DIRECT 0.3 mg/dL (0.0-0.4); BILIRUBIN,TOTAL 0.3 mg/dL (0.2-1.3); BLOOD UREA NITROGEN 74 mg/dL (7-20); CALCIUM 9.6 mg/dL (8.4-10.2); CARBON DIOXIDE 23 mmol/L (22-30); CHLORIDE 102 mmol/L (98-107); GLUCOSE 94 mg/dL (75-110); POTASSIUM 5.1 mmol/L (3.6-5.0); TOTAL PROTEIN 7.5 g/dL (6.3-8.2)
--- NOTE | 2019-05-22 11:16 | RADIOLOGY REPORT (SQ) ---
EXAM DESCRIPTION: U/S ABDOMEN LTD W/DOPPLER COMPLETED DATE/TIME: 05/22/2019 11:05 am REASON FOR STUDY: LLQ pain COMPARISON: None. TECHNIQUE: Dynamic and static grayscale images acquired of the left inguinal region and recorded on PACS. Additional selected color Doppler and spectral images recorded. LIMITATIONS: None. FINDINGS: The patient has a left inguinal hernia containing peristalsing bowel loops. We were unabl e to demonstrate reduction of the bowel into the canal with compression maneuvers. IMPRESSION: Left inguinal hernia containing peristalsing bowel loops. TECHNICAL DOCUMENTATION: JOB ID: [id number] [employer]- All Rights Reserved Reading location - IP/workstation name: [email or web address]
--- NOTE | 2019-05-22 13:07 | ER Document Report ---
ED General - General Chief Complaint: Groin Pain Stated Complaint: ABDOMINAL PAIN Time Seen by Provider: 05/22/19 10:04 Primary Care Provider: MARIE ZACARIAS MD [Primary Care Provider] - Follow up as needed Mode of Arrival: Wheelchair Information source: Patient TRAVEL OUTSIDE OF THE [place] IN LAST 30 DAYS: No - HPI Patient complains to provider of: Patient complains of left groin pain since awakening this morning. Onset: This morning Onset/Duration: Sudden Quality of pain: Achy Severity: Mild Pain Level: 2 Associated symptoms: Other - Lawson catheter thigh back to his right thigh. Patient just was released from [facility] 2 days prior. He has a history of hypertension CKD hyperkalemia BPH. Patient reports he had right inguinal hernia repair in [place] after moving from [place] to [facility] in 2000. 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 Patient denies any acute pulling or history of damage while working last week. He reports he was in the hospital for 1 week here because of his kidney disease. Exacerbated by: Movement, Walking, Coughing Relieved by: Supine, Remaining still Similar symptoms previously: Yes Recently seen / treated by doctor: Yes - Related Data Allergies/Adverse Reactions: No Known Allergies Allergy (Verified 05/22/19 10:01) Past Medical History - General Information source: Patient - Social History Smoking Status: Unknown if Ever Smoked Cigarette use (# per day): No Chew tobacco use (# tins/day): No Smoking Education Provided: No Frequency of alcohol use: None Drug Abuse: Marijuana Lives with: Family - With girlfriend and son Family History: Reviewed & Not Pertinent, Hypertension Patient has suicidal ideation: No Patient has homicidal ideation: No - Medical History Medical History: Other - see HPI - Past Medical History Cardiac Medical History: Reports: Hx Hypertension Renal/ Medical History: Reports: Hx End Stage Renal Disease. Denies: Hx Peritoneal Dialysis Past Surgical History: Reports: Other Physical Exam - Vital signs Vitals: Temp Pulse Resp BP Pulse Ox 97.4 F 81 16 120/72 100 05/22/19 09:53 05/22/19 09:53 05/22/19 09:53 05/22/19 09:53 05/22/19 09:53 - Abdominal Inspection: Other - No healed surgical scar from inguinal hernia on the right left inguinal area with a 3 cm hernia appears to be noninflamed and tender to palpation and not reducible Distension: No distension Bowel sounds: Normal Tenderness: Tender Organomegaly: No organomegaly - Genitourinary Inspection: Other - Catheter in place with eye bag on right thigh Tenderness: Nontender Cremasteric reflex: Normal Scrotum: Normal Course - Vital Signs Vital signs: Temp Pulse Resp BP Pulse Ox 97.4 F 81 16 120/72 100 05/22/19 09:53 05/22/19 09:53 05/22/19 09:53 05/22/19 09:53 05/22/19 09:53 - Laboratory Result Diagrams: 05/22/19 10:30 05/22/19 10:30 Laboratory results interpreted by me: 05/22/19 05/22/19 10:30 10:30 RBC 2.68 L Hgb 7.5 L Hct 22.2 L RDW 14.1 H Lymph % (Auto) 12.0 L Eos % (Auto) 9.5 H Potassium 5.1 H BUN 74 H Creatinine 7.45 H Est GFR ( Amer) 9 L Est GFR (MDRD) Non-Af 7 L - Diagnostic Test Radiology reviewed: Reports reviewed Critical Care Note - Critical Care Note Total time excluding time spent on procedures (mins): 30 Discharge - Discharge Clinical Impression: Left inguinal hernia Condition: Good Disposition: HOME, SELF-CARE Admitting Provider: Follow-up with Dr. Rasheed Ibarra Additional Instructions: Follow-up with Dr. Zacarias tomorrow for your CKD and also follow-up with surgical for your inguinal hernia with Dr. Rasheed Ibarra. Avoid lifting bending twisting sexual activity. Arise slowly and with liberation from sitting position to standing and also from laying position to sitting position. Try to take vitamin C with your iron and also Jell-O for nutrition for connective tissue. Referrals: MARIE ZACARIAS MD [Primary Care Provider] - Follow up as needed
[2019-05-22 13:29] VITALS: BP 135/77
== END 2019-05-22 13:29 | disposition home or self-care (01) ==
LOC: ER 09:48
DX: K40.90 Unilateral inguinal hernia, without obstruction or gangrene, not specified as recurrent (principal); R10.30 Lower abdominal pain, unspecified; I12.0 Hypertensive chronic kidney disease with stage 5 chronic kidney disease or end stage renal disease; N18.6 End stage renal disease; E87.5 Hyperkalemia; N40.0 Benign prostatic hyperplasia without lower urinary tract symptoms; Z98.890 Other specified postprocedural states
CPT/HCPCS: 36415; 76705; 80053; 85025; 93976; 99284

== ENCOUNTER 2019-06-01 10:57 | Emergency (ER) | payer BC ==
--- NOTE | 2019-06-01 11:18 | ER Document Report ---
ED Medical Screen (RME) - General Chief Complaint: Groin Pain Stated Complaint: ABDOMINAL PAIN Time Seen by Provider: 06/01/19 11:07 Primary Care Provider: MARIE ZACARIAS MD [Primary Care Provider] - Follow up as needed Mode of Arrival: Wheelchair Information source: Patient Notes: Patient presents with complaints of swelling and pain to the left groin area. Patient has a history of hernia. Patient denies any fever, nausea vomiting or urinary symptoms. Patient does report occasional low back pain. Patient had outpatient labs collected today prior to his arrival to the ER. Patient has been being followed by his primary doctor due to renal failure and hyperkalemia. Patient had urinary obstruction and is due to follow-up with urology. Patient does report occasional dizziness although states his primary reason for presenting today is the left groin pain. Patient poor historian, history was reviewed from his recent admission. I have greeted and performed a rapid initial assessment of this patient. A comprehensive ED assessment and evaluation of the patient, analysis of test results and completion of the medical decision making process will be conducted by additional ED providers. TRAVEL OUTSIDE OF THE [place] IN LAST 30 DAYS: No - Related Data Allergies/Adverse Reactions: No Known Allergies Allergy (Verified 06/01/19 11:12) Home Medications: htn kidneys Past Medical History - Social History Chew tobacco use (# tins/day): No Frequency of alcohol use: daily Drug Abuse: Marijuana - Past Medical History Cardiac Medical History: Reports: Hx Hypertension Renal/ Medical History: Reports: Hx End Stage Renal Disease. Denies: Hx Peritoneal Dialysis Past Surgical History: Reports: Other Physical Exam - General General appearance: Appears well, Alert Notes: Left inguinal tenderness Doctor's Discharge - Discharge Referrals: MARIE ZACARIAS MD [Primary Care Provider] - Follow up as needed
[2019-06-01 11:46] LABS: APPEARANCE,URINE CLEAR; BILIRUBIN,URINE NEGATIVE (NEGATIVE); COLOR,URINE YELLOW; GLUCOSE, URINE NEGATIVE (NEGATIVE); KETONES,URINE NEGATIVE (NEGATIVE); LEUKOCYTE ESTERASE,URINE TRACE (NEGATIVE); NITRITE,URINE NEGATIVE (NEGATIVE); PROTEIN,URINE 100 mg/dL (NEGATIVE); URINE SPECIFIC GRAVITY 1.011; UROBILINOGEN,URINE NEGATIVE mg/dL (<2.0)
--- NOTE | 2019-06-01 13:32 | RADIOLOGY REPORT (SQ) ---
EXAM DESCRIPTION: U/S SCROTUM W/DOPPLER COMPLETED DATE/TIME: 06/01/2019 1:12 pm REASON FOR STUDY: L groin pain COMPARISON: None. TECHNIQUE: Static and realtime lowry scale imaging of the scrotum and testes. Selected color Doppler and spectral images recorded to document blood flow. LIMITATIONS: None. FINDINGS: RIGHT: TESTICLE: Normal size, 3.9 x 2.8 x 2.6 cm. Normal echotexture. Normal blood flow. No mass. EPIDIDYMIS: Normal. HYDROCELE OR VARICOCELE: No. HERNIA OR EXTRA-TESTICULAR MASS: No. OTHER: No other significant finding. LEFT: TESTICLE: Normal size, 3.8 x 4 x 2.7 cm. Normal echotexture. Normal blood flow. No mass. EPIDIDYMIS: Normal. HYDROCELE OR VARICOCELE: No. HERNIA OR EXTRA-TESTICULAR MASS: Left inguinal hernia containing peristalsing bowel. We were unable to reduce the hernia with the ultrasound probe. OTHER: No other significant finding. IMPRESSION: No sonographic evidence of testicular mass or torsion. Left inguinal hernia containing peristalsing bowel. TECHNICAL DOCUMENTATION: JOB ID: [id number]- All Rights Reserved Reading location - IP/workstation name: [email or web address]
[2019-06-01] MEDS ORDERED: OXYCODONE-ACETAMINOPHEN 5-325 MG TABLET PO ONE (15:22)
--- NOTE | 2019-06-01 15:28 | ER Document Report ---
ED General - General Chief Complaint: Groin Pain Stated Complaint: ABDOMINAL PAIN Time Seen by Provider: 06/01/19 11:07 Primary Care Provider: MARIE ZACARIAS MD [Primary Care Provider] - Follow up as needed Mode of Arrival: Wheelchair TRAVEL OUTSIDE OF THE [place] IN LAST 30 DAYS: No - HPI Patient complains to provider of: left groin pain Onset: This morning Onset/Duration: Gradual, Constant Quality of pain: Achy, Cramping Severity: Moderate Pain Level: 2 Context: 63 year old male with known left sided inguinal hernia is here with left groin pain associated with this hernia. 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 Has follow up scheduled for tomorrow. No fever or chills. Watching tv when I see him. - Related Data Allergies/Adverse Reactions: No Known Allergies Allergy (Verified 06/01/19 11:12) Home Medications: htn kidneys Past Medical History - General Information source: Patient - Social History Smoking Status: Unknown if Ever Smoked Chew tobacco use (# tins/day): No Frequency of alcohol use: daily Drug Abuse: Marijuana Family History: Reviewed & Not Pertinent, Hypertension Patient has suicidal ideation: No Patient has homicidal ideation: No - Past Medical History Cardiac Medical History: Reports: Hx Hypertension Renal/ Medical History: Reports: Hx End Stage Renal Disease. Denies: Hx Peritoneal Dialysis Past Surgical History: Reports: Other Review of Systems - Review of Systems Constitutional: No symptoms reported EENT: No symptoms reported Cardiovascular: No symptoms reported Respiratory: No symptoms reported Gastrointestinal: No symptoms reported Genitourinary: See HPI Male Genitourinary: No symptoms reported Musculoskeletal: No symptoms reported Skin: No symptoms reported Hematologic/Lymphatic: No symptoms reported Neurological/Psychological: No symptoms reported Physical Exam - Vital signs Vitals: Temp Pulse Resp BP Pulse Ox 97.9 F 76 20 121/81 100 06/01/19 11:08 06/01/19 11:08 06/01/19 11:08 06/01/19 11:08 06/01/19 11:08 Interpretation: Normal - General General appearance: Appears well, Alert - HEENT Head: Normocephalic, Atraumatic Eyes: Normal Pupils: PERRL - Respiratory Respiratory status: No respiratory distress Chest status: Nontender Breath sounds: Normal Chest palpation: Normal - Cardiovascular Rhythm: Regular Heart sounds: Normal auscultation Murmur: No - Abdominal Inspection: Normal Distension: No distension Bowel sounds: Normal Tenderness: Nontender Organomegaly: No organomegaly - Genitourinary Tenderness: No: Testicle tender, Epididymis tender Scrotum: Normal Notes: Left ing hernia with out incarceration. - Back Back: Normal, Nontender - Extremities General upper extremity: Normal inspection, Nontender, Normal color, Normal ROM, Normal temperature General lower extremity: Normal inspection, Nontender, Normal color, Normal ROM, Normal temperature, Normal weight bearing. No: Georgina's sign - Neurological Neuro grossly intact: Yes Cognition: Normal Orientation: AAOx4 German Coma Scale Eye Opening: Spontaneous Magdalena Coma Scale Verbal: Oriented German Coma Scale Motor: Obeys Commands Magdalena Coma Scale Total: 15 Speech: Normal Motor strength normal: LUE, RUE, LLE, RLE Sensory: Normal - Psychological Associated symptoms: Normal affect, Normal mood - Skin Skin Temperature: Warm Skin Moisture: Dry Skin Color: Normal Course - Re-evaluation Re-evalutation: 06/01/19 15:23 MDM 63 year old with Left groin pain. Left known ing hernia. Has follow up tomorrow. No pain medicine here. - Vital Signs Vital signs: Temp Pulse Resp BP Pulse Ox 97.9 F 70 18 136/79 H 99 06/01/19 15:45 06/01/19 15:45 06/01/19 15:45 06/01/19 15:45 06/01/19 13:47 - Laboratory Laboratory results interpreted by me: 06/01/19 10:55 Urine Protein 100 H Urine Blood SMALL H Ur Leukocyte Esterase TRACE H Discharge - Discharge Clinical Impression: Left inguinal hernia Condition: Good Disposition: HOME, SELF-CARE Instructions: Hernia ([facility]) Additional Instructions: Keep the follow up with Dr. Moura tomorrow. Wear scrotal support as discussed. Please return here for increased pain, fever or other concerns. Use ice to the left groin as needed for pain. Take tylenol for pain. Prescriptions: Hydrocodone/Acetaminophen [[place] 5-325 mg Tabs (6 Tab/ER Disp)] 6 tab PO TID #1 dspk Referrals: MARIE ZACARIAS MD [Primary Care Provider] - Follow up as needed
[2019-06-01 15:46] VITALS: BP 136/79
== END 2019-06-01 15:50 | disposition home or self-care (01) ==
LOC: ER 10:57
DX: K40.90 Unilateral inguinal hernia, without obstruction or gangrene, not specified as recurrent (principal); R10.30 Lower abdominal pain, unspecified; I12.0 Hypertensive chronic kidney disease with stage 5 chronic kidney disease or end stage renal disease; N18.6 End stage renal disease
CPT/HCPCS: 76870; 81001; 93976; 99284

== ENCOUNTER → 2019-06-01 | Outpatient (CLI) | payer BC ==
[2019-06-01 11:09] LABS: ABSOLUTE BASOPHILS # (AUTO) 0.1 10^3/uL (0.0-0.2); ABSOLUTE EOSINOPHILS # (AUTO) 0.4 10^3/uL (0.0-0.6); ABSOLUTE LYMPHOCYTES (AUTO) 0.8 10^3/uL (0.5-4.7); ABSOLUTE MONOCYTES (AUTO) 0.4 10^3/uL (0.1-1.4); ABSOLUTE NEUT (AUTO) 2.7 10^3/uL (1.7-8.2); BASOPHILS % (AUTO) 1.9 % (0-2); EOSINOPHILS % (AUTO) 9.2 % (0-6); HEMATOCRIT 25.5 % (37.9-51.0); HEMOGLOBIN 8.4 g/dL (13.5-17.0); LYMPHOCYTES % (AUTO) 17.8 % (13-45); MEAN CORPUSCULAR HEMOGLOBIN 28.3 pg (27.0-33.4); MEAN CORPUSCULAR VOLUME 86 fl (80-97); MONOCYTES % (AUTO) 8.9 % (3-13); PLATELET COUNT 248 10^3/uL (150-450); RED BLOOD COUNT 2.98 10^6/uL (4.35-5.55); RED CELL DISTRIBUTION WIDTH 14.8 % (11.5-14.0); SEGMENTED NEUTROPHILS % (AUTO) 62.2 % (42-78); TOTAL CELLS COUNTED % (AUTO) 100 %; WHITE BLOOD COUNT 4.4 10^3/uL (4.0-10.5)
[2019-06-01 11:34] LABS: ANION GAP 10 (5-19); BLOOD UREA NITROGEN 55 mg/dL (7-20); CALCIUM 9.9 mg/dL (8.4-10.2); CARBON DIOXIDE 27 mmol/L (22-30); CHLORIDE 102 mmol/L (98-107); GLUCOSE 89 mg/dL (75-110); POTASSIUM 4.6 mmol/L (3.6-5.0)
== END ==
LOC: LAB 10:30
PROVIDERS: ATTEND Family Medicine
DX: I10 Essential (primary) hypertension (principal); N13.9 Obstructive and reflux uropathy, unspecified
CPT/HCPCS: 36415; 80048; 85025

== ENCOUNTER 2019-06-06 10:44 | Emergency (ER) | payer BC ==
--- NOTE | 2019-06-06 10:55 | ER Document Report ---
ED Medical Screen (RME) - General Chief Complaint: Leg Pain Stated Complaint: RIGHT LEG PAIN Time Seen by Provider: 06/06/19 10:47 Primary Care Provider: MARIE ZACARIAS MD [Primary Care Provider] - Follow up as needed TRAVEL OUTSIDE OF THE [place] IN LAST 30 DAYS: No - HPI Notes: 06/06/19 10:53 Patient is a 63-year-old male who presents complaining of a left inguinal hernia for 4 months, but having increasing pain over the past couple days. He was seen 5 days ago and had an unremarkable evaluation at that time. Patient states that the area has been getting larger and more painful. No fever. He is able to urinate normally and having normal bowel movements. I have treated and performed a rapid initial assessment of this patient. A comprehensive ED assessment and evaluation of the patient, analysis of test results and completion of medical decision making process will be conducted by additional ED providers. PHYSICAL EXAMINATION: GENERAL: Well-appearing, well-nourished and in no acute distress. Left inguinal: Patient would not allow me to put much pressure or thoroughly evaluate hernia. I was able to initially press on it and it did feel somewhat soft, but patient immediately pulled away and would not allow me to re-evaluate here in triage. - Related Data Allergies/Adverse Reactions: No Known Allergies Allergy (Verified 06/01/19 11:12) Past Medical History - Past Medical History Cardiac Medical History: Reports: Hx Hypertension Renal/ Medical History: Reports: Hx End Stage Renal Disease. Denies: Hx Peritoneal Dialysis Past Surgical History: Reports: Other Physical Exam - Vital signs Vitals: Temp Pulse Resp BP Pulse Ox 97.7 F 63 18 128/61 H 97 06/06/19 10:49 06/06/19 10:49 06/06/19 10:49 06/06/19 10:49 06/06/19 10:49 Course - Vital Signs Vital signs: Temp Pulse Resp BP Pulse Ox 97.7 F 63 18 128/61 H 97 06/06/19 10:49 06/06/19 10:49 06/06/19 10:49 06/06/19 10:49 06/06/19 10:49 Doctor's Discharge - Discharge Referrals: MARIE ZACARIAS MD [Primary Care Provider] - Follow up as needed
[2019-06-06] MEDS ORDERED: MORPHINE SULFATE 10 MG/ML INJ IM ONE (13:10)
--- NOTE | 2019-06-06 13:16 | RADIOLOGY REPORT (SQ) ---
EXAM DESCRIPTION: U/S ABDOMEN LTD W/DOPPLER COMPLETED DATE/TIME: 06/06/2019 12:42 pm REASON FOR STUDY: left inguinal hernia eval, pain COMPARISON: 05/22/2019. TECHNIQUE: Dynamic and static grayscale and color Doppler images of the left inguinal region were ob tained. LIMITATIONS: None. FINDINGS: There is a left inguinal hernia containing peristalsing loops of bowel. IMPRESSION: Left inguinal hernia containing peristalsing loops of bowel. TECHNICAL DOCUMENTATION: JOB ID: [id number] [employer]- All Rights Reserved Reading location - IP/workstation name: [email or web address]
--- NOTE | 2019-06-06 13:37 | ER Document Report ---
ED General - General Chief Complaint: Abdominal Pain Stated Complaint: RIGHT LEG PAIN Time Seen by Provider: 06/06/19 10:47 Primary Care Provider: MARIE ZACARIAS MD [Primary Care Provider] - Follow up as needed Mode of Arrival: Ambulatory Information source: Patient Notes: 63-year-old male presents with left inguinal pain that has been ongoing for 4 months but worsened over the weekend. Patient describes it as a throbbing aching pain that is worse with movement but currently absent. Patient states that he intermittently sees a bulge in his inguinal area. He did go over to [facility] and was turned away due to insurance reasons. Patient denies any fever, chills, nausea, vomiting, dysuria, hematuria. TRAVEL OUTSIDE OF THE [place] IN LAST 30 DAYS: No - HPI Onset: Other Onset/Duration: Intermittent, Gone Quality of pain: Achy Severity: None Pain Level: Denies Associated symptoms: Body/muscle aches. denies: Chest pain, Chills, Fever, Leg swelling, Nausea, Vomiting, Shortness of breath Exacerbated by: Movement, Walking Relieved by: Denies Similar symptoms previously: Yes Recently seen / treated by doctor: Yes - Related Data Allergies/Adverse Reactions: No Known Allergies Allergy (Verified 06/01/19 11:12) Past Medical History - General Information source: Patient - Social History Smoking Status: Former Smoker Frequency of alcohol use: None Drug Abuse: Marijuana Lives with: Friend Family History: Reviewed & Not Pertinent, Hypertension Patient has suicidal ideation: No Patient has homicidal ideation: No - Past Medical History Cardiac Medical History: Reports: Hx Hypertension Renal/ Medical History: Reports: Hx End Stage Renal Disease. Denies: Hx Peritoneal Dialysis Past Surgical History: Reports: Other Review of Systems - Review of Systems Notes: REVIEW OF SYSTEMS: CONSTITUTIONAL : Denies fever, chills, or sweats. Denies recent illness. Denies weight loss, recent hospitalizations. EENT: Denies visual changes, eye pain. Denies sore throat, oral lesions, difficulty swallowing. CARDIOVASCULAR: Denies chest pain. Denies palpitations. Denies lower extremity edema. RESPIRATORY: Denies cough. Denies shortness of breath, wheezing. GASTROINTESTINAL: Denies abdominal pain or distention. Denies nausea, vomiting, or diarrhea. Denies blood in vomitus, stools, or per rectum. Denies black, tarry stools. Denies constipation. GENITOURINARY: Denies difficulty urinating, painful urination, frequency, blood in urine, testicular pain or penile discharge. MUSCULOSKELETAL: Denies back or neck pain or stiffness. Denies joint pain or swelling. SKIN: Denies rash, lesions or sores. HEMATOLOGIC : Denies easy bruising or bleeding. LYMPHATIC: Denies swollen glands. NEUROLOGICAL: Denies confusion or altered mental status. Denies loss of consciousness. Denies dizziness or lightheadedness. Denies headache. Denies weakness or paralysis. Denies problems difficulty with ambulation, slurred speech. Denies sensory loss, numbness, or tingling. Denies seizures. PSYCHIATRIC: Denies anxiety or stress. Denies depression, suicidal ideation, or Physical Exam - Vital signs Vitals: Temp Pulse Resp BP Pulse Ox 97.7 F 63 18 128/61 H 97 06/06/19 10:49 06/06/19 10:49 06/06/19 10:49 06/06/19 10:49 06/06/19 10:49 - Notes Notes: PHYSICAL EXAMINATION: GENERAL: Well-appearing, well-nourished and in no acute distress. HEAD: Atraumatic, normocephalic. EYES: Pupils equal round and reactive to light, extraocular movements intact, sclera anicteric, conjunctiva are normal. ENT: Nares patent, oropharynx clear without exudates. Moist mucous membranes. NECK: Normal range of motion, supple without lymphadenopathy LUNGS: Breath sounds clear to auscultation bilaterally and equal. No wheezes rales or rhonchi. HEART: Regular rate and rhythm without murmurs ABDOMEN: Soft, nontender, nondistended abdomen. No guarding, no rebound. No masses appreciated. Tenderness with palpation to the left inguinal canal. No obvious hernia. No erythema, lymphadenopathy, induration, fluctuance. Musculoskeletal: Normal range of motion, no pitting or edema. No cyanosis. NEUROLOGICAL: Cranial nerves grossly intact. Normal speech, normal gait. Normal sensory, motor exams PSYCH: Normal mood, normal affect. SKIN: Warm, Dry, normal turgor, no rashes or lesions noted. Course - Re-evaluation Re-evalutation: 06/06/19 16:01 Laboratory 06/06/19 13:28 Urine Color STRAW Urine Appearance CLEAR Urine pH 7.0 Ur Specific [place] 1.011 Urine Protein 30 H Urine Glucose (UA) NEGATIVE Urine Ketones NEGATIVE Urine Blood SMALL H Urine Nitrite NEGATIVE Urine Bilirubin NEGATIVE Urine Urobilinogen NEGATIVE Ur Leukocyte Esterase SMALL H Urine WBC (Auto) 6 Urine RBC (Auto) 4 Urine Ascorbic Acid NEGATIVE Abdomen Ultrasound 06/06/19 10:51 IMPRESSION: Left inguinal hernia containing peristalsing loops of bowel. Temp Pulse Resp BP Pulse Ox 98.0 F 70 18 120/76 99 06/06/19 15:02 06/06/19 15:02 06/06/19 15:02 06/06/19 15:02 06/06/19 15:02 63-year-old male presents with left inguinal pain that has been ongoing for several months and has been evaluated by several physicians. No evidence of incarceration, strangulation. On exam no hernia appreciated and patient states that it recently reduced spontaneously. He did have an upcoming appointment w [facility] this morning but states he was turned away because he was unable to pay his co-pay. Repeat ultrasound was performed and showed a left inguinal hernia containing peristalsing loops of bowel. This was seen and similar scans that have been done over the last few months. Vital signs reviewed and within normal limits. Patient does not appear toxic or dehydrated. He is in no acute distress. Urinalysis not consistent with urinary tract infection. Social work consult was placed and they did speak to the patient who is currently unemployed and losing his insurance. They have come up with a discharge plan of getting him into [facility]. Patient is agreeable with this plan and will be discharged home in stable condition. Patient was evaluated and treated as appropriate for the patient's presenting symptoms and complaint, with consideration of any critical or life threatening conditions that may be associated with their obtained history and exam as noted above. All results were discussed with patient and... Patient provided the opportunity to ask questions, and express concerns. Patient was educated on treatments based on their presumed diagnosis as noted above. At this time we will discharge the patient with return precautions and follow-up recommendations. Verbal discharge instructions given a the bedside. Medication warnings reviewed. Patient is in agreement with this plan and has verbalized understanding of return precautions. After careful consideration I feel that that patient can be safely discharged from the emergency department, they were advised to followup with a primary care physician in 2-3 days. Dictation on this chart was performed using voice recognition software and may result in unintended grammatical, spelling, syntax or errors. - Vital Signs Vital signs: Temp Pulse Resp BP Pulse Ox 98.0 F 70 18 120/76 99 06/06/19 15:02 06/06/19 15:02 06/06/19 15:02 06/06/19 15:02 06/06/19 15:02 - Laboratory Laboratory results interpreted by me: 06/06/19 13:28 Urine Protein 30 H Urine Blood SMALL H Ur Leukocyte Esterase SMALL H - Diagnostic Test Radiology reviewed: Image reviewed, Reports reviewed Discharge - Discharge Clinical Impression: Left inguinal hernia Renal failure Qualifiers: Renal failure chronicity: chronic Chronic kidney disease stage: unspecified stage Qualified Code(s): N18.9 - Chronic kidney disease, unspecified Condition: Good Disposition: HOME, SELF-CARE Instructions: Hernia ([facility]) Additional Instructions: Follow up with your [id number] hours for further care or return to the ED IMMEDIATELY if symptoms worsen or you have any concerns. If you cannot afford to follow up with your primary care physician a list of low cost clinics have been provided at the end of your discharge papers as well. Most prescribed medications have multiple side effects. The safest thing to do is when filling your prescription speak to your pharmacist regarding possible interactions with your normal home medications and over the counter medications such as Ibuprofen, Tylenol, Benadryl. If you experience any symptoms that cause you discomfort or concern you should discontinue the medication immediately and return to the emergency room or call your primary care physician. Forms: Smoking Cessation Education Referrals: MARIE ZACARIAS MD [Primary Care Provider] - Follow up as needed
[2019-06-06 13:44] LABS: APPEARANCE,URINE CLEAR; BILIRUBIN,URINE NEGATIVE (NEGATIVE); COLOR,URINE STRAW; GLUCOSE, URINE NEGATIVE (NEGATIVE); KETONES,URINE NEGATIVE (NEGATIVE); LEUKOCYTE ESTERASE,URINE SMALL (NEGATIVE); NITRITE,URINE NEGATIVE (NEGATIVE); PROTEIN,URINE 30 mg/dL (NEGATIVE); URINE SPECIFIC GRAVITY 1.011; UROBILINOGEN,URINE NEGATIVE mg/dL (<2.0)
[2019-06-06 15:03] VITALS: BP 120/76
== END 2019-06-06 15:03 | disposition home or self-care (01) ==
LOC: ER 10:44
DX: K40.90 Unilateral inguinal hernia, without obstruction or gangrene, not specified as recurrent (principal); R10.32 Left lower quadrant pain; M79.10 Myalgia, unspecified site; I12.0 Hypertensive chronic kidney disease with stage 5 chronic kidney disease or end stage renal disease; N18.6 End stage renal disease
CPT/HCPCS: 99284; 96372; 81001; 76705; 93976; J2270

== ENCOUNTER 2019-07-11 05:18 | Emergency (ER) | payer BC ==
[2019-07-11 05:36] VITALS: BP 166/77
--- NOTE | 2019-07-11 10:06 | ER Document Report ---
ED General - General Chief Complaint: Swelling of Lower Extremity Stated Complaint: CATHETER PROBLEM Time Seen by Provider: 07/11/19 08:49 Primary Care Provider: MARIE ZACARIAS MD [Primary Care Provider] - Follow up as needed TRAVEL OUTSIDE OF THE [place] IN LAST 30 DAYS: No - HPI Notes: Patient is a 63-year-old male who presents the emergency department for evaluation. He has an indwelling Lawson catheter, present since admission to the hospital last month. He has a follow-up with Dr. Ochoa jack. He developed a hole in the Lawson catheter bag and presents here for evaluation of that leg. Patient complains of multiple other things, including dizziness, some right ankle swelling. He states that none of these are new. He denies any symptoms at this time. He states right now he is just hungry. He does admit that he is not been taking his medications as prescribed. He states that he used all of his money last week "for the light bill" and does not have any money to get his prescriptions filled. He states they are waiting for him at [facility]. He is primarily concerned about his hypertensive medication, but he is unsure as to what that is. - Related Data Allergies/Adverse Reactions: No Known Allergies Allergy (Verified 06/01/19 11:12) Home Medications: Amlodipine. Tamsulosin. Finasteride Past Medical History - General Information source: Patient - Social History Smoking Status: Never Smoker Chew tobacco use (# tins/day): No Frequency of alcohol use: Occasional Drug Abuse: Marijuana Family History: Reviewed & Not Pertinent, Hypertension Patient has suicidal ideation: No Patient has homicidal ideation: No - Past Medical History Cardiac Medical History: Reports: Hx Hypertension Renal/ Medical History: Reports: Hx Benign Prostatic Hyperplasia, Hx End Stage Renal Disease. Denies: Hx Peritoneal Dialysis Past Surgical History: Reports: Other Review of Systems - Review of Systems Constitutional: See HPI Genitourinary: See HPI Neurological/Psychological: See HPI -: Yes All other systems reviewed and negative Physical Exam - Vital signs Vitals: Temp Pulse Resp BP Pulse Ox 97.7 F 52 L 16 166/77 H 100 07/11/19 05:35 07/11/19 05:35 07/11/19 05:35 07/11/19 05:35 07/11/19 05:35 - Notes Notes: Vital signs reviewed, please refer to chart. Head is normocephalic, atraumatic. Pupils equal round, reactive to light. Neck is supple without meningismus. Heart is regular rate and rhythm. Lungs are clear to auscultation bilaterally. Abdomen is soft, nontender, normoactive bowel sounds throughout. Extremities without cyanosis, clubbing. Posterior calves are nontender. Elastic band around lower leg with some mild edema distal, on the right, holding the leg bag. Urine draining from leg bag without difficulty. Peripheral pulses are equal. Skin is warm and dry. Patient is awake, alert, oriented x3. Cranial nerves II - XII are grossly intact without focal neurological deficits. Strength is plus 5 out of 5 bilateral upper and lower extremities. Sensation is intact. Reflexes symmetrical. Intact [id number], rapid alternating movements, praful l-to-odell. Course - Re-evaluation Re-evalutation: 07/11/19 10:02 Patient presents to the emergency department for evaluation. His Lawson bag was changed and he continues to drain urine. The patient is mildly hypertensive but has been off his antihypertensive medications. I cannot give him money to have his prescriptions filled, but I did give him a dose of amlodipine here. In regards to the small amount of ankle edema he has, I believe it is likely secondary to the elastic from the leg bag. He has no posterior calf tenderness. He has no risk factors for DVT. His dizziness is been an ongoing issue, and he has no neurological deficits at this time. Patient has a follow-up with Dr. Moura, and would prefer to be discharged from the hospital at this time. He has been stable here for several hours. I will again discharge the patient home, he is to follow-up with his primary care provider and urologist this week. He is to return to the ED with worsening or new concerning symptoms of any sort. 07/11/19 10:04 - Vital Signs Vital signs: Temp Pulse Resp BP Pulse Ox 97.7 F 52 L 16 166/77 H 100 07/11/19 05:35 07/11/19 05:35 07/11/19 05:35 07/11/19 05:35 07/11/19 05:35 Discharge - Discharge Clinical Impression: Dizziness, Noncompliance with medication regimen Lawson catheter problem Qualifiers: Encounter type: initial encounter Qualified Code(s): T83.9XXA - Unspecified complication of genitourinary prosthetic device, implant and graft, initial encounter Condition: Stable Disposition: HOME, SELF-CARE Instructions: Lawson Catheter Care ([facility]), High Blood Pressure ([facility]), Dizziness ([facility]) Additional Instructions: Please fill your prescription medications and take them as soon as possible. Follow-up with primary care and urology this week. If you develop worsening or new concerning symptoms of any sort, please return immediately to the emergency department for evaluation. Referrals: MARIE ZACARIAS MD [Primary Care Provider] - Follow up as needed
== END 2019-07-11 11:26 | disposition home or self-care (01) ==
LOC: ER 05:18
DX: I10 Essential (primary) hypertension (principal); T46.1X6A Underdosing of calcium-channel blockers, initial encounter; Z91.120 Patient's intentional underdosing of medication regimen due to financial hardship; Z91.14 Patient's other noncompliance with medication regimen; T83.091A Other mechanical complication of indwelling urethral catheter, initial encounter; Y73.8 Miscellaneous gastroenterology and urology devices associated with adverse incidents, not elsewhere classified; R60.0 Localized edema; R42 Dizziness and giddiness; N40.0 Benign prostatic hyperplasia without lower urinary tract symptoms; Z79.899 Other long term (current) drug therapy
CPT/HCPCS: 99284

== ENCOUNTER 2019-11-04 12:15 | Emergency (ER) | payer SELFPAY ==
--- NOTE | 2019-11-04 13:01 | ER Document Report ---
ED General - General Chief Complaint: Medication Refill Stated Complaint: BLOOD PRESSURE PROBLEM Time Seen by Provider: 11/04/19 12:34 Primary Care Provider: MARIE ZACARIAS MD [Primary Care Provider] - Follow up as needed Mode of Arrival: Ambulatory Information source: Patient Notes: This 63-year-old man presents to the emergency department with a history of BPH, hypertension and presently unable to get his prescriptions filled due to the lack of money. States that he has been on short-term disability, however has not received payment and is unable to buy his medications which he was getting 10-day supply increments from the pharmacy. He states that there is a prescription at the pharmacy, however, he cannot afford medication. He began feeling like he was developing head pressure/pain and was worried that his blood pressure was out of control. He has not taken the medication for 1 week. TRAVEL OUTSIDE OF THE [place] IN LAST 30 DAYS: No - Related Data Allergies/Adverse Reactions: No Known Allergies Allergy (Verified 06/01/19 11:12) Past Medical History - Social History Smoking Status: Unknown if Ever Smoked Family History: Reviewed & Not Pertinent, Hypertension - Past Medical History Cardiac Medical History: Reports: Hx Hypertension Renal/ Medical History: Reports: Hx Benign Prostatic Hyperplasia, Hx End Stage Renal Disease. Denies: Hx Peritoneal Dialysis Past Surgical History: Reports: Other Review of Systems - Review of Systems Notes: Constitutional: Negative for fever. HENT: Negative for sore throat. Eyes: Negative for visual changes. Cardiovascular: Negative for chest pain. Respiratory: Negative for shortness of breath. Gastrointestinal: Negative for abdominal pain, vomiting or diarrhea. Genitourinary: Negative for dysuria. Musculoskeletal: Negative for back pain. Skin: Negative for rash. Neurological: + Headaches, no weakness or numbness. 10 point ROS negative except as marked above and in HPI. Physical Exam - Vital signs Vitals: Temp Pulse Resp BP Pulse Ox 98.3 F 57 L 20 204/89 H 98 11/04/19 12:41 11/04/19 12:41 11/04/19 12:41 11/04/19 12:41 11/04/19 12:41 - Notes Notes: PHYSICAL EXAMINATION: Physical Exam: General: Well-nourished well-developed 63-year-old male in in no acute distress HEENT: NC/AT, pupils equal round and reactive to light, MM moist,nares clear, oropharynx clear, airway patent, poor dentition Neck: supple, no adenopathy, no masses. Good range of motion Lungs: clear, no wheezing, no rales no rhonchi CVS: Regular rate and rhythm no murmur gallop or rub Abdomen: Soft, active, nontender, no masses, no hepatosplenomegaly Ext: No edema, clubbing or cyanosis. Neuro: Alert and responsive, moving all 4 extremities on command, cranial nerves intact, no focal findings Skin: Intact no open lesions, no rash PSYCH: Normal mood, normal affect. Course - Re-evaluation Re-evalutation: 11/04/19 14:33 Hospital social insurance administrator was called and were able to arrange to get a 15-day supply of the antihypertensive medication. Also notes that in the month patient will be put into a free clinic which will allow him to get free medication as well as consultation with specialist. I am treating the patient's acute blood pressure here in emergency department with a dose of his usual medications, 0.1 of clonidine and into Nitropaste. He is being discharged with the understanding that he can follow-up as needed. - Vital Signs Vital signs: Temp Pulse Resp BP Pulse Ox 98.3 F 57 L 20 204/89 H 98 11/04/19 12:43 11/04/19 12:41 11/04/19 12:41 11/04/19 12:41 11/04/19 12:41 Discharge - Discharge Clinical Impression: Bradyarrhythmia HTN (hypertension) Qualifiers: Hypertension type: essential hypertension Qualified Code(s): I10 - Essential (primary) hypertension Condition: Good Disposition: HOME, SELF-CARE Instructions: High Blood Pressure, Requiring Treatment ([facility]) Additional Instructions: You were seen in the emergency department today and treated for elevated blood pressure. Medications were arranged for the next 15 days amlodipine 10 mg daily. Please take that medication as prescribed and follow-up with the outpatient plan for free clinic services. If your symptoms are worsening or if you have other concerns you may return to the emergency department sooner if needed. HOME CARE INSTRUCTIONS & INFORMATION: Thank you for choosing us for your medical needs. We hope you're satisfied with the care you received. After you leave, you must properly care for your problem and, at the same time, observe its progress. Any condition can change. Some illnesses can change rapidly over hours or days. If your condition worsens, return to the Emergency Department or see your physician promptly. ABOUT YOUR X-RAYS AND EKG'S: If you had an EKG or X-rays taken, they have been read by the Emergency Physician. The X-rays and EKG's will also be read by a Radiologist or Construction Mgr within 24 hours. If discrepancies are noted, you will be notified by telephone. Please be certain the ED has a correct telephone number & address where you can be reached. Also, realize that some fractures or abnormalities do not show up on initial X-rays. If your symptoms continue, see your physician. ABOUT YOUR LABORATORY TEST: If you had laboratory tests, the results have been reviewed by the Emergency Physician. Some test results (for example cultures) may not be available for several days. You will be contacted if any test result shows you need additional treatment. Please be certain the ED has a correct telephone number and address where you can be reached. ABOUT YOUR MEDICATIONS: You will receive instructions on how to take your medicine on the prescription label you receive. Additional information may be provided by the Pharmacy. If you have questions afterwards, call the ED for clarification or further instructions. Some prescribed medications may cause drowsiness. Do not perform tasks such as driving a car or operating machinery without consulting your Pharmacist. If you feel you need a refill of pain medication, your condition will need re-evaluation. Please do not call for a refill of any medication. ABOUT YOUR SIGNATURE: Signature of this document acknowledges to followin. Understanding that you received emergency treatment and that you may be released before al medical problems are known or treated. Please be certain the ED has a correct phone number & address where you can be reached. 2. Acknowledgement that you will arrange for follow-up care as recommended. 3. Authorization for the Emergency Physician to provide information to your follow-up Physician in order to maximize your care. AT ANY TIME, IF YOUR SYMPTOMS CHANGE SIGNIFICANTLY OR WORSEN OR YOU DEVELOP NEW SYMPTOMS, RETURN TO THE EMERGENCY DEPARTMENT IMMEDIATELY FOR RE-EVALUATION. OUR GOAL IS TO PROVIDE EXCELLENT MEDICAL CARE! WE HOPE THAT WE HAVE MET YOUR EXPECTATIONS DURING YOUR EMERGENCY DEPARTMENT VISIT AND THAT YOU FEEL YOU HAVE RECEIVED EXCELLENT CARE! Prescriptions: Amlodipine Besylate [Norvasc 10 mg Tablet] 10 mg PO DAILY #15 tablet Referrals: ZACARIAS,SWETANG, MD [Primary Care Provider] - Follow up as needed
[2019-11-04] MEDS ORDERED: NITROGLYCERIN 2% OINTMENT 1 GM PACKET TP ONE (13:08)
[2019-11-04] MEDS ORDERED: CLONIDINE HCL 0.1 MG TABLET PO ONE (13:09)
[2019-11-04] MEDS ORDERED: AMLODIPINE BESYLATE 10 MG TABLET PO ONE (13:09)
[2019-11-04 14:41] VITALS: BP 124/81
== END 2019-11-04 14:47 | disposition home or self-care (01) ==
LOC: ER 12:15
DX: Z76.0 Encounter for issue of repeat prescription (principal); I49.8 Other specified cardiac arrhythmias; I10 Essential (primary) hypertension
CPT/HCPCS: 99283

== ENCOUNTER 2019-11-21 10:56 | Inpatient (IN) | payer SELFPAY ==
[2019-11-21 12:37] LABS: ABSOLUTE EOSINOPHILS # (AUTO) 0.2 10^3/uL (0.0-0.6); ABSOLUTE LYMPHOCYTES (AUTO) 0.7 10^3/uL (0.5-4.7); ABSOLUTE MONOCYTES (AUTO) 0.3 10^3/uL (0.1-1.4); ABSOLUTE NEUT (AUTO) 2.5 10^3/uL (1.7-8.2); BASOPHILS % (AUTO) 1.1 % (0-2); EOSINOPHILS % (AUTO) 4.6 % (0-6); HEMATOCRIT 26.9 % (37.9-51.0); HEMOGLOBIN 8.6 g/dL (13.5-17.0); LYMPHOCYTES % (AUTO) 19.1 % (13-45); MEAN CORPUSCULAR HEMOGLOBIN 27.5 pg (27.0-33.4); MEAN CORPUSCULAR HGB CONC 32.1 g/dL (32.0-36.0); MEAN CORPUSCULAR VOLUME 86 fl (80-97); MONOCYTES % (AUTO) 8.3 % (3-13); PLATELET COUNT 202 10^3/uL (150-450); RED BLOOD COUNT 3.14 10^6/uL (4.35-5.55); RED CELL DISTRIBUTION WIDTH 16.3 % (11.5-14.0); SEGMENTED NEUTROPHILS % (AUTO) 66.9 % (42-78); TOTAL CELLS COUNTED % (AUTO) 100 %; WHITE BLOOD COUNT 3.8 10^3/uL (4.0-10.5)
[2019-11-21 12:57] LABS: ALBUMIN 4.7 g/dL (3.5-5.0); ALKALINE PHOSPHATASE 69 U/L (38-126); ANION GAP 8 (5-19); ASPARTATE AMINO TRANSFERASE 31 U/L (17-59); BILIRUBIN,TOTAL 0.3 mg/dL (0.2-1.3); BLOOD UREA NITROGEN 67 mg/dL (7-20); CALCIUM 9.8 mg/dL (8.4-10.2); CARBON DIOXIDE 13 mmol/L (22-30); CHLORIDE 116 mmol/L (98-107); GLUCOSE 94 mg/dL (75-110); TOTAL PROTEIN 8.1 g/dL (6.3-8.2)
[2019-11-21 13:06] LABS: POTASSIUM 7.7 mmol/L (3.6-5.0)
--- NOTE | 2019-11-21 13:09 | EKG REPORT ---
SEVERITY:- OTHERWISE NORMAL ECG - SINUS BRADYCARDIA ATYPICAL TALL PEAKED T WAVES : Confirmed by: Radames Carpenter MD 21-Nov-2019 13:08:20
[2019-11-21] MEDS ORDERED: CALCIUM GLUCONATE 1000 MG/10 ML INJ IV ONE (13:16)
[2019-11-21] MEDS ORDERED: ALBUTEROL SULFATE 0.083% NEB 2.5 MG/3 ML AMPUL NEB ONE ×2 (13:16→16:23)
[2019-11-21] MEDS ORDERED: INSULIN REG, HUMAN 100 UNIT/ML 3 ML VIAL (PYX) IV ONE ×2 (13:16→13:24)
[2019-11-21] MEDS ORDERED: SODIUM BICARBONATE 8.4% INJ 50 MEQ/50 ML DISP.SYRIN IV ONE (13:16)
[2019-11-21] MEDS ORDERED: DEXTROSE 50%-WATER 25 GM/50 ML DISP.SYRIN IV ONE (13:16)
[2019-11-21] MEDS ORDERED: SODIUM POLYSTYRENE SULFONATE 15 GM/60 ML PO ONE (13:26)
[2019-11-21 13:33] LABS: APPEARANCE,URINE CLEAR; BILIRUBIN,URINE NEGATIVE (NEGATIVE); COLOR,URINE STRAW; GLUCOSE, URINE NEGATIVE (NEGATIVE); KETONES,URINE NEGATIVE (NEGATIVE); LEUKOCYTE ESTERASE,URINE NEGATIVE (NEGATIVE); NITRITE,URINE NEGATIVE (NEGATIVE); PROTEIN,URINE NEGATIVE (NEGATIVE); URINE SPECIFIC GRAVITY 1.011; UROBILINOGEN,URINE NEGATIVE mg/dL (<2.0)
[2019-11-21] MEDS ORDERED: LIDOCAINE 2% URO-JET 5 ML KIT MM ONE (13:34)
--- NOTE | 2019-11-21 13:40 | RADIOLOGY REPORT (SQ) ---
EXAM DESCRIPTION: CT ABD/PELVIS NO ORAL OR IV IMAGES COMPLETED DATE/TIME: 11/21/2019 1:10 pm REASON FOR STUDY: flank pain COMPARISON: 08/31/2018 TECHNIQUE: CT scan of the abdomen and pelvis performed without intravenous or oral contrast. Images reviewed with lung, soft tissue, and bone windows. Reconstructed coronal and sagittal MPR images revi ewed. All images stored on PACS. All CT scanners at this facility use dose modulation, iterative reconstruction, and/or weight based d osing when appropriate to reduce radiation dose to as low as reasonably achievable (ALARA). [facility]: Dose Right [facility]: CareDose [facility]: Dose Right [facility]: Teradose 4D [facility]: HealthSpot RADIATION DOSE: CT Rad equipment meets quality standard of care and radiation dose reduction techniq ues were employed. CTDIvol: 4.8 mGy. DLP: 285 mGy-cm.mGy. LIMITATIONS: None. FINDINGS: LOWER CHEST: No significant findings. No nodules or infiltrates. NON-CONTRASTED LIVER, SPLEEN, ADRENALS: Evaluation limited by lack of IV contrast. No identified sign ificant masses. PANCREAS: No masses. No peripancreatic inflammatory changes. GALLBLADDER: No identified stones by CT criteria. No inflammatory changes to suggest cholecystitis. RIGHT KIDNEY AND URETER: No suspicious masses. Assessment limited by lack of IV contrast. Significa nt hydroureteronephrosis, and increased compared to prior. No calcifications. LEFT KIDNEY AND URETER: No suspicious masses. Assessment limited by lack of IV contrast. Significan t hydroureteronephrosis, increased from prior. No definite nephrolithiasis. Unchanged calcific den sities along the left ureter, likely phleboliths. Additional surgical clips along the left psoas. AORTA AND RETROPERITONEUM: No aneurysm. No retroperitoneal masses or adenopathy. BOWEL AND PERITONEAL CAVITY: No evidence of intestinal obstruction. No focal bowel wall thickening. Scattered colonic diverticula. APPENDIX: Not completely visualized. PELVIS, BLADDER, AND ABDOMINAL WALL:Marked urinary bladder distention with irregular circumferential wall thickening. Prostatomegaly measuring 5.8 cm transversely extending into the urinary bladder bas e. BONES: No acute bony abnormality. Lower lumbar spondylosis and facet arthropathy. No suspicious oss eous lesions. OTHER: No other significant finding. IMPRESSION: 1. Marked urinary bladder distention with significant bilateral hydroureteronephrosis l ikely secondary to markedly enlarged prostate. Recommend urinary decompression. 2. Irregular circumferential bladder wall thickening, likely secondary to chronic outlet obstruction . Findings conveyed to David at 1333 hours on 11/21/2019. COMMENT: Quality ID # [id number]: Final reports with documentation of one or more dose reduction techniques (e.g., Automated exposure control, adjustment of the mA and/or kV according to patient size, use of iterative reconstruction technique) TECHNICAL DOCUMENTATION: JOB ID: [id number] 2010 Stamped- All Rights Reserved Reading location - IP[facility]workstation name: [email or web address]
--- NOTE | 2019-11-21 14:20 | ER Document Report ---
ED GI/ - General Chief Complaint: Vomiting Stated Complaint: VOMITING,LEFT FLANK PAIN Time Seen by Provider: 11/21/19 11:49 Mode of Arrival: Ambulatory Information source: Patient Notes: Patient presents with multiple complaints. Patient states that he has had chronic flank pain for the past 6 months. Patient states he also has an hernia to the left inguinal area. Patient states that he was walking from the [facility] and he had a syncopal episode in the front lobby. Patient states that he has chronic cough although denies any chest discomfort. Patient reports a history of hypertension and chronic kidney disease. TRAVEL OUTSIDE OF THE [place] IN LAST 30 DAYS: No - HPI Patient complains to provider of: Flank pain, Vomiting. No: Testicular pain Onset: This afternoon Timing/Duration: Worse Quality of pain: Achy Pain Level: 4 Location: Left flank, Right flank Associated symptoms: Nausea, Shortness of breath, Vomiting. denies: Chest pain, Fever, Hematuria, Urinary hesitancy, Urinary frequency, Urinary retention, Urinary urgency Exacerbated by: Denies Relieved by: Denies Similar symptoms previously: Yes Recently seen / treated by doctor: No - Related Data Allergies/Adverse Reactions: No Known Allergies Allergy (Verified 11/21/19 12:08) Past Medical History - General Information source: Patient - Social History Smoking Status: Never Smoker Frequency of alcohol use: Occasional Drug Abuse: None Occupation: none Family History: Reviewed & Not Pertinent, Hypertension - Past Medical History Cardiac Medical History: Reports: Hx Hypertension Renal/ Medical History: Reports: Hx Benign Prostatic Hyperplasia, Hx End Stage Renal Disease. Denies: Hx Peritoneal Dialysis Surgical Hx: Negative Review of Systems - Review of Systems Constitutional: No symptoms reported. denies: Fever EENT: No symptoms reported Cardiovascular: Syncope. denies: Chest pain Respiratory: Short of breath. denies: Cough Gastrointestinal: Abdominal pain, Nausea, Vomiting. denies: Diarrhea Genitourinary: Flank pain. denies: Dysuria, Hematuria Male Genitourinary: No symptoms reported Musculoskeletal: Back pain Skin: No symptoms reported Hematologic/Lymphatic: No symptoms reported Neurological/Psychological: No symptoms reported Physical Exam - Vital signs Vitals: Temp Pulse Resp BP Pulse Ox 97.9 F 57 L 18 138/73 H 100 11/21/19 11:33 11/21/19 11:33 11/21/19 11:33 11/21/19 11:33 11/21/19 11:33 - General General appearance: Appears well, Alert In distress: None - HEENT Head: Normocephalic, Atraumatic Eyes: Normal Conjunctiva: Normal Nasal: Normal Mouth/Lips: Other - Multiple missing or decayed teeth Mucous membranes: Normal Pharynx: Normal Neck: Normal, Supple. No: Lymphadenopathy - Respiratory Respiratory status: No respiratory distress Chest status: Nontender Breath sounds: Normal. No: Rales, Rhonchi, Stridor, Wheezing Chest palpation: Normal - Cardiovascular Rhythm: Bradycardia Heart sounds: S1 appreciated, S2 appreciated - Abdominal Inspection: Normal Distension: No distension Bowel sounds: Normal Tenderness: Tender - Tenderness to left inguinal hernia that is able to be reduced Organomegaly: No organomegaly - Back Back: CVA tenderness - Bilateral - Extremities General upper extremity: Normal inspection, Normal strength General lower extremity: Normal inspection, Normal strength - Neurological Neuro grossly intact: Yes Cognition: Normal [place] Coma Scale Eye Opening: Spontaneous [place] Coma Scale Verbal: Oriented [place] Coma Scale Motor: Obeys Commands [place] Coma Scale Total: 15 - Psychological Associated symptoms: Normal affect, Normal mood - Skin Skin Temperature: Warm Skin Moisture: Dry Skin Color: Normal Course - Re-evaluation Re-evalutation: 11/21/19 13:00 Spoke with staff regarding patient's reported syncopal episode at the dentist. Staff member states they observed him eased himself onto the ground and states that they were able to speak with him the entire time and that he did not lose consciousness. 11/21/19 13:[address] Lemus regarding patient presentation and hyperkalemia, Dr. Landon advises giving only 4 units of insulin in addition to the dextrose, calcium gluconate, sodium bicarb and oral Kayexalate. 11/21/19 13:40 Radiologist called with urgent CT scan report results showing bilateral hydronephrosis and distended bladder. Recommends emergent catheterization. 11/21/19 14:42 Lawson inserted and 1100 mL's of urine were drained. 11/21/19 15:17 Patient heart rate increased to the 70s and 80s at this time and T waves on monitor appear more normalized at this time. Consulted with Dr. Shipley regarding need for admission, Dr. Shipley requests repeat chemistry panel and calling with those results so they can better evaluate patient's needs. 11/21/19 15:[address] Shipley who requests consultation with nephrology given patient's extreme hyperkalemia and EKG findings. Call placed skin peeling machine operator to page Dr. Rashid Platt. 11/21/19 16:54 Patient's repeat potassium down to 6.3, call placed to hydro excavation operator for consultation with Dr. Rashid Platt as he has not yet returned the initial page. 11/21/19 17:21 No return call from Dr. Platt, hydro excavation operator notified and Dr. Platt will be paged again 11/21/19 17:26 Dr. Platt return phone call discussed patient's presentation, diagnostic test results as well as vital signs. Dr. Platt states that patient can be admitted and that he will see the patient in the morning at this time. 11/21/19 17:[address] Shipley who does agree to come and evaluate patient at this time. 11/21/19 17:40 Dr Shipley at bedside - Vital Signs Vital signs: Temp Pulse Resp BP Pulse Ox 97.9 F 57 L 18 142/68 H 100 11/21/19 12:08 11/21/19 11:33 11/21/19 17:31 11/21/19 17:31 11/21/19 17:31 - Laboratory Result Diagrams: 11/21/19 11:58 11/21/19 15:56 Laboratory results interpreted by me: 11/21/19 11/21/19 11/21/19 11:58 11:58 12:46 WBC 3.8 L RBC 3.14 L Hgb 8.6 L Hct 26.9 L RDW 16.3 H Sodium 136.5 L Potassium 7.7 H* Chloride 116 H Carbon Dioxide 13 L BUN 67 H Creatinine 6.84 H Est GFR ( Amer) 10 L Est GFR (MDRD) Non-Af 8 L Glucose Urine Blood SMALL H 11/21/19 15:56 WBC RBC Hgb Hct RDW Sodium Potassium 6.3 H* D Chloride 115 H Carbon Dioxide 16 L BUN 65 H Creatinine 6.38 H Est GFR ( Amer) 11 L Est GFR (MDRD) Non-Af 9 L Glucose 145 H Urine Blood 11/21/19 18:39 Labs- All tests 24 hr 11/21/19 11/21/19 11/21/19 11:58 11:58 11:58 WBC 3.8 L RBC 3.14 L Hgb 8.6 L Hct 26.9 L MCV 86 MCH 27.5 MCHC 32.1 RDW 16.3 H Plt Count 202 Lymph % (Auto) 19.1 [place] % (Auto) 8.3 Eos % (Auto) 4.6 Baso % (Auto) 1.1 Absolute Neuts (auto) 2.5 Absolute Lymphs (auto) 0.7 Absolute Monos (auto) 0.3 Absolute Eos (auto) 0.2 Absolute Basos (auto) 0.0 Seg Neutrophils % 66.9 Sodium 136.5 L Potassium 7.7 H* Chloride 116 H Carbon Dioxide 13 L Anion Gap 8 BUN 67 H Creatinine 6.84 H Est GFR ( Amer) 10 L Est GFR (MDRD) Non-Af 8 L Glucose 94 POC Glucose Calcium 9.8 Magnesium 2.0 Total Bilirubin 0.3 Direct Bilirubin 0.0 Neonat Total Bilirubin Not Reportable Neonat Direct Bilirubin Not Reportable Neonat Indirect Bili Not Reportable AST 31 ALT 21 Alkaline Phosphatase 69 Troponin I < 0.012 Total Protein 8.1 Albumin 4.7 Urine Color Urine Appearance Urine pH Ur Specific [place] Urine Protein Urine Glucose (UA) Urine Ketones Urine Blood Urine Nitrite Urine Bilirubin Urine Urobilinogen Ur Leukocyte Esterase Urine WBC (Auto) Urine RBC (Auto) Urine Bacteria (Auto) Urine Mucus (Auto) Urine Ascorbic Acid 11/21/19 11/21/19 11/21/19 12:24 12:46 15:56 WBC RBC Hgb Hct MCV MCH MCHC RDW Plt Count Lymph % (Auto) [place] % (Auto) Eos % (Auto) Baso % (Auto) Absolute Neuts (auto) Absolute Lymphs (auto) Absolute Monos (auto) Absolute Eos (auto) Absolute Basos (auto) Seg Neutrophils % Sodium 137.2 Potassium 6.3 H* D Chloride 115 H Carbon Dioxide 16 L Anion Gap 6 BUN 65 H Creatinine 6.38 H Est GFR ( Amer) 11 L Est GFR (MDRD) Non-Af 9 L Glucose 145 H POC Glucose 90 Calcium 9.7 Magnesium Total Bilirubin Direct Bilirubin Neonat Total Bilirubin Neonat Direct Bilirubin Neonat Indirect Bili AST ALT Alkaline Phosphatase Troponin I Total Protein Albumin Urine Color STRAW Urine Appearance CLEAR Urine pH 5.0 Ur Specific [place] 1.011 Urine Protein NEGATIVE Urine Glucose (UA) NEGATIVE Urine Ketones NEGATIVE Urine Blood SMALL H Urine Nitrite NEGATIVE Urine Bilirubin NEGATIVE Urine Urobilinogen NEGATIVE Ur Leukocyte Esterase NEGATIVE Urine WBC (Auto) 3 Urine RBC (Auto) 1 Urine Bacteria (Auto) TRACE Urine Mucus (Auto) RARE Urine Ascorbic Acid NEGATIVE - Diagnostic Test Radiology reviewed: Reports reviewed - EKG Interpretation by Me EKG shows normal: Sinus rhythm Rate: Bradycardia Rhythm: NSR Additional EKG results interpreted by me: 11/21/19 16:15 Peaked T waves, no acute ischemic changes, sinus bradycardia 49, QTc 380 11/21/19 16:15 Patient's repeat EKG reviewed which demonstrates sinus rhythm with a rate of 58, QTc 405, patient does have persistent peaked T waves, no significant change as compared to prior Discharge - Discharge Clinical Impression: Bilateral hydronephrosis, BPH with obstruction/lower urinary tract symptoms, Hyperkalemia Acute renal failure Qualifiers: Acute renal failure type: unspecified Qualified Code(s): N17.9 - Acute kidney failure, unspecified Condition: Serious Disposition: ADMITTED INPATIENT Admitting Provider: Violetta (Hospitalist) Unit Admitted: [facility]
[2019-11-21] MEDS ORDERED: RINGERS SOLUTION,LACTATED 1,000 ML IV ONE (14:50)
[2019-11-21 16:34] LABS: ANION GAP 6 (5-19); BLOOD UREA NITROGEN 65 mg/dL (7-20); CALCIUM 9.7 mg/dL (8.4-10.2); CARBON DIOXIDE 16 mmol/L (22-30); CHLORIDE 115 mmol/L (98-107); GLUCOSE 145 mg/dL (75-110)
[2019-11-21 16:51] LABS: POTASSIUM 6.3 mmol/L (3.6-5.0)
--- NOTE | 2019-11-21 17:53 | EKG REPORT ---
SEVERITY:- ABNORMAL ECG - SINUS BRADYCARDIA NONSPECIFIC ST-T CHANGES- INFERIOR LEADS : Confirmed by: Radames Carpenter MD 21-Nov-2019 17:53:06
[2019-11-21] MEDS ORDERED: PATIROMER 8.4 GM SUSP PACKET PO ONE (18:00)
--- NOTE | 2019-11-21 18:25 | PDOC H&P ---
History of Present Illness Admission Date/PCP: MARIE WEBB MD History of Present Illness: TOBY COLLINS is a 63 year old male with a history of hypertension, chronic kidney disease, and BPH who presents with history of not feeling well for the past couple of days. He is about 6 or 7 times that he is trying to get on disability, and he said he has had trouble getting his medications. He said he used to see Dr. Webb but he has not seen him in a couple of months. He said he has been going to the [facility]. He said he is only been able to get about 10 doses of his medications at a time because of the cost. He has not been able to take them consistently. He said he has had problems with urinary retention in the past and has followed with Dr. Moura. He said back in August he had to keep the Lawson catheter in for about 30 days and then it was taken out by Dr. Moura in the office. He said that he has had incomplete emptying of his bladder whenever he voids. He said he walked over to the office this morning to the [facility] where he was going to get his medications refilled. He said they gave him prescriptions and he was walking over to the pharmacy and he just felt extremely fatigued. He said he has felt like he has had cramps in his lower back. He has brought to the emergency department where his potassium was high and he had peaked T waves on his EKG. His initial potassium was 7.7. He was given bicarbonate, insulin, glucose, and Kayexalate. He was also given a couple of nebulizer treatments. His potassium has come down to 6.3. When they put the Lawson catheter in they got out 1100 mL's of urine. He got a liter of fluids and he has had about an additional 1 L of urine out since then. They called and he said he would see the patient in consultation but does not think the patient needs dialysis at this time. Past Medical History Cardiac Medical History: Reports: Hypertension Renal/ Medical History: Reports: End Stage Renal Disease Past Surgical History Past Surgical History: Reports: Other Social History Smoking Status: Never Smoker Frequency of Alcohol Use: Social Drugs: Marijuana Family History Family History: Reviewed & Not Pertinent, Arthritis, CAD, Hyperlipidemia, Hypertension Parental Family History Reviewed: Yes Children Family History Reviewed: Yes Sibling(s) Family History Reviewed.: Yes Medication/Allergy Home Medications: Amlodipine Besylate [Norvasc 10 mg Tablet] 10 mg PO DAILY 11/21/19 Finasteride [Proscar 5 mg Tablet] 5 mg PO DAILY 11/21/19 Tamsulosin HCl [Flomax 0.4 mg Cap.sr] 0.4 mg PO DAILY 11/21/19 Allergies/Adverse Reactions: No Known Allergies Allergy (Verified 11/21/19 12:08) Review of Systems All systems: reviewed and no additional remarkable complaints except as stated - All systems were reviewed and were negative except as noted in the HPI Physical Exam Vital Signs: Temp Pulse Resp BP Pulse Ox 97.9 F 57 L 18 142/68 H 100 11/21/19 12:08 11/21/19 11:33 11/21/19 17:31 11/21/19 17:31 11/21/19 17:31 Intake & Output 11/20/19 11/21/19 11/22/19 06:59 06:59 06:59 Intake Total 1000 Balance 1000 Weight 81.928 kg General appearance: PRESENT: no acute distress, cooperative, disheveled Head exam: PRESENT: atraumatic, normocephalic Eye exam: PRESENT: EOMI, PERRLA. ABSENT: conjunctival injection, nystagmus, scleral icterus Ear exam: PRESENT: normal external ear exam Mouth exam: PRESENT: dry mucosa, neck supple Throat exam: ABSENT: post pharyngeal erythema Neck exam: PRESENT: full ROM. ABSENT: carotid bruit, JVD, lymphadenopathy, meningismus, tenderness, thyromegaly Respiratory exam: PRESENT: clear to auscultation tessa, symmetrical, unlabored. ABSENT: accessory muscle use, chest wall tenderness, crackles, prolonged expi ratory phas, rhonchi, tachypnea, wheezes Cardiovascular exam: PRESENT: RRR, +S1, +S2 Pulses: PRESENT: normal carotid pulses Vascular exam: PRESENT: normal capillary refill GI/Abdominal exam: PRESENT: normal bowel sounds, soft. ABSENT: distended, guarding, rebound, tenderness Gentrourinary exam: PRESENT: indwelling catheter Extremities exam: ABSENT: clubbing, pedal edema Musculoskeletal exam: PRESENT: normal inspection. ABSENT: deformity Neurological exam: PRESENT: alert, awake, oriented to person, oriented to place, oriented to time, oriented to situation, CN II-XII grossly intact. ABSENT: motor sensory deficit Psychiatric exam: PRESENT: appropriate affect, normal mood Skin exam: PRESENT: dry, warm Results Laboratory Results: 11/21/19 11:58 11/21/19 15:56 11/21/19 11/21/19 11/21/19 11:58 11:58 12:46 WBC 3.8 L RBC 3.14 L Hgb 8.6 L Hct 26.9 L MCV 86 MCH 27.5 MCHC 32.1 RDW 16.3 H Plt Count 202 Seg Neutrophils % 66.9 Sodium 136.5 L Potassium 7.7 H* Chloride 116 H Carbon Dioxide 13 L Anion Gap 8 BUN 67 H Creatinine 6.84 H Est GFR ( Amer) 10 L Glucose 94 Calcium 9.8 Magnesium 2.0 Total Bilirubin 0.3 AST 31 Alkaline Phosphatase 69 Total Protein 8.1 Albumin 4.7 Urine Color STRAW Urine Appearance CLEAR Urine pH 5.0 Ur Specific [place] 1.011 Urine Protein NEGATIVE Urine Glucose (UA) NEGATIVE Urine Ketones NEGATIVE Urine Blood SMALL H Urine Nitrite NEGATIVE Ur Leukocyte Esterase NEGATIVE Urine WBC (Auto) 3 Urine RBC (Auto) 1 11/21/19 15:56 WBC RBC Hgb Hct MCV MCH MCHC RDW Plt Count Seg Neutrophils % Sodium 137.2 Potassium 6.3 H* D Chloride 115 H Carbon Dioxide 16 L Anion Gap 6 BUN 65 H Creatinine 6.38 H Est GFR ( Amer) 11 L Glucose 145 H Calcium 9.7 Magnesium Total Bilirubin AST Alkaline Phosphatase Total Protein Albumin Urine Color Urine Appearance Urine pH Ur Specific [place] Urine Protein Urine Glucose (UA) Urine Ketones Urine Blood Urine Nitrite Ur Leukocyte Esterase Urine WBC (Auto) Urine RBC (Auto) 11/21/19 11:58 Troponin I < 0.012 Impressions: Abdomen/Pelvis CT 11/21/19 12:27 IMPRESSION: 1. Marked urinary bladder distention with significant bilateral hydroureteronephrosis likely secondary to markedly enlarged prostate. Recommend urinary decompression. 2. Irregular circumferential bladder wall thickening, likely secondary to chronic outlet obstruction. Findings conveyed to David at 1333 hours on 11/21/2019. Assessment and Plan - Diagnosis (1) Oqrkp-hd-ejtemke kidney injury Qualifiers: Acute renal failure type: with acute tubular necrosis Chronic kidney disease stage: stage 5, not on chronic dialysis Qualified Code(s): N17.0 - Acute kidney failure with tubular necrosis; N18.5 - Chronic kidney disease, stage 5 Is this a current diagnosis for this admission?: Yes Plan: I think that the acute worsening of his chronic kidney injury was due to his bladder outlet obstruction from his enlarged prostate. Lawson catheter has been placed. He has had good drainage of urine and after fluids has continued to produce urine. We will continue to gently hydrate but I think relief of the obstruction is going to be the best treatment for him. Dr. Platt was contacted in the ER and said he would see the patient in consultation. (2) BPH with obstruction/lower urinary tract symptoms Is this a current diagnosis for this admission?: Yes Plan: We will continue Proscar and Flomax (3) Bilateral hydronephrosis Is this a current diagnosis for this admission?: Yes Plan: Due to bladder outlet obstruction, treatment as above we will probably leave the Lawson catheter in him and arrange for outpatient follow-up with urology. (4) Hyperkalemia Is this a current diagnosis for this admission?: Yes Plan: He previously got bicarbonate, insulin, glucose, and Kayexalate. I am going to give him some patiromer. Because his serum bicarbonate was low, I am going to give him some dextrose with 3 A of bicarbonate per liter of D5, this should also help with his potassium. We will check a metabolic panel every 4 hours. We will keep him on telemetry. We will repeat an EKG later on this evening and again in the morning. (5) HTN (hypertension) Qualifiers: Hypertension type: essential hypertension Qualified Code(s): I10 - Essential (primary) hypertension Is this a current diagnosis for this admission?: Yes Plan: We will continue amlodipine - Time Time Spent with patient: 35 or more minutes - Inpatient Certification Based on my medical assessment, after consideration of the patient's comorbidities, presenting symptoms, or acuity I expect that the services needed warrant INPATIENT care.: Yes I certify that my determination is in accordance with my understanding of Medicare's requirements for reasonable and necessary INPATIENT services [42 CFR 412.3e].: Yes Medical Necessity: Significant Comorbidiites Make Outpatient Treatment Too Risky, Need Close Monitoring Due to Risk of Patient Decompensation, Need For IV Fluids, Need For Continuous Telemetry Monitoring, Risk of Complication if Not Cared For in Hospital
[2019-11-21] MEDS: DEXTROSE 5%-WATER 1000 ML 1,000 ML with SODIUM BICARBONATE 150 MEQ IV PRN ×2 (18:58)
--- NOTE | 2019-11-21 20:27 | RADIOLOGY REPORT (SQ) ---
EXAM DESCRIPTION: X-ray, AP portable view of the chest CLINICAL HISTORY: 63 years Male, near syncope COMPARISON: Two views of the chest 05/16/2019 FINDINGS: Lungs: Lungs are clear. No pneumonia or edema. No pneumothorax or pleural effusion. Mediastinum: Cardiac and mediastinal silhouette are within normal limits. Bones: Endplate spondylosis in the thoracic spine is stable IMPRESSION: No acute process. No significant interval change.
[2019-11-21 22:45] LABS: ANION GAP 8 (5-19); BLOOD UREA NITROGEN 64 mg/dL (7-20); CALCIUM 9.7 mg/dL (8.4-10.2); CARBON DIOXIDE 17 mmol/L (22-30); CHLORIDE 111 mmol/L (98-107); GLUCOSE 123 mg/dL (75-110); POTASSIUM 5.5 mmol/L (3.6-5.0)
[2019-11-21] MEDS: HEPARIN SOD (PORCINE) 5,000 UNIT/ML 1 ML VIAL SUBCUT SCH (22:46)
[2019-11-21] MEDS ORDERED: ACETAMINOPHEN 325 MG TABLET ONE (22:53)
[2019-11-22] MEDS: ACETAMINOPHEN 325 MG TABLET PO PRN (00:05)
[2019-11-22 02:42] LABS: ANION GAP 8 (5-19); BLOOD UREA NITROGEN 60 mg/dL (7-20); CALCIUM 9.4 mg/dL (8.4-10.2); CARBON DIOXIDE 16 mmol/L (22-30); CHLORIDE 112 mmol/L (98-107); GLUCOSE 99 mg/dL (75-110); POTASSIUM 5.4 mmol/L (3.6-5.0)
[2019-11-22] MEDS: HEPARIN SOD (PORCINE) 5,000 UNIT/ML 1 ML VIAL SUBCUT SCH ×3 (06:20→21:16)
[2019-11-22 07:09] LABS: HEMATOCRIT 24.8 % (37.9-51.0); HEMOGLOBIN 8.2 g/dL (13.5-17.0); MEAN CORPUSCULAR HEMOGLOBIN 27.6 pg (27.0-33.4); MEAN CORPUSCULAR HGB CONC 33.2 g/dL (32.0-36.0); MEAN CORPUSCULAR VOLUME 83 fl (80-97); PLATELET COUNT 180 10^3/uL (150-450); RED BLOOD COUNT 2.97 10^6/uL (4.35-5.55); RED CELL DISTRIBUTION WIDTH 15.5 % (11.5-14.0); WHITE BLOOD COUNT 3.7 10^3/uL (4.0-10.5)
--- NOTE | 2019-11-22 07:14 | EKG REPORT ---
SEVERITY:- BORDERLINE ECG - SINUS BRADYCARDIA BORDERLINE ST ELEVATION, CHRONIC NONSPECIFIC ST-T CHANGES- INFERIOR LEADS : Confirmed by: Radames Carpenter MD 22-Nov-2019 07:13:20
[2019-11-22 07:33] LABS: ANION GAP 8 (5-19); BLOOD UREA NITROGEN 58 mg/dL (7-20); CALCIUM 9.3 mg/dL (8.4-10.2); CARBON DIOXIDE 18 mmol/L (22-30); CHLORIDE 111 mmol/L (98-107); GLUCOSE 97 mg/dL (75-110); POTASSIUM 5.3 mmol/L (3.6-5.0)
[2019-11-22] MEDS: AMLODIPINE BESYLATE 10 MG TABLET PO SCH (09:58)
[2019-11-22] MEDS: FINASTERIDE 5 MG TABLET PO SCH (09:58)
[2019-11-22] MEDS: DEXTROSE 5%-WATER 1000 ML 1,000 ML with SODIUM BICARBONATE 150 MEQ IV PRN ×2 (09:58)
[2019-11-22] MEDS: TAMSULOSIN HCL 0.4 MG CAP.SR.24H PO SCH (09:58)
[2019-11-22 10:35] LABS: ANION GAP 7 (5-19); BLOOD UREA NITROGEN 54 mg/dL (7-20); CALCIUM 9.3 mg/dL (8.4-10.2); CARBON DIOXIDE 20 mmol/L (22-30); CHLORIDE 109 mmol/L (98-107); GLUCOSE 98 mg/dL (75-110); POTASSIUM 5.1 mmol/L (3.6-5.0)
--- NOTE | 2019-11-22 12:17 | PDOC PROGRESS REPORT ---
Subjective Progress Note for:: 11/22/19 Subjective:: No adverse events overnight. No new complaints. He again told me he is trying to get on disability. His urine output is been good. He has been eating and drinking without difficulty. Reason For Visit: HYPERKALEMIA,ACUTE ON CHRONIC KIDNEY INJURY,URINAR Physical Exam Vital Signs: Temp Pulse Resp BP Pulse Ox 97.8 F 64 16 151/80 H 100 11/22/19 11:27 11/22/19 11:27 11/22/19 11:27 11/22/19 11:27 11/22/19 11:27 Intake & Output 11/21/19 11/22/19 11/23/19 06:59 06:59 06:59 Intake Total 1887 1125 Output Total 2450 Balance -563 1125 Weight 68.9 kg General appearance: PRESENT: no acute distress, cooperative, disheveled Respiratory exam: PRESENT: clear to auscultation tessa, symmetrical, unlabored. ABSENT: accessory muscle use, chest wall tenderness, crackles, prolonged expir atory phase, rhonchi, tachypnea, wheezes Cardiovascular exam: PRESENT: RRR, +S1, +S2 Pulses: PRESENT: normal carotid pulses Vascular exam: PRESENT: normal capillary refill GI/Abdominal exam: PRESENT: normal bowel sounds, soft. ABSENT: distended, guarding, rebound, tenderness Gentrourinary exam: PRESENT: indwelling catheter Extremities exam: ABSENT: clubbing, pedal edema Musculoskeletal exam: PRESENT: normal inspection. ABSENT: deformity Neurological exam: PRESENT: alert, awake, oriented to person, oriented to place, oriented to time, oriented to situation Psychiatric exam: PRESENT: appropriate affect, normal mood Skin exam: PRESENT: dry, warm Results Laboratory Results: 11/22/19 06:16 11/22/19 09:54 11/21/19 11/21/19 11/21/19 11:58 11:58 12:46 WBC 3.8 L RBC 3.14 L Hgb 8.6 L Hct 26.9 L MCV 86 MCH 27.5 MCHC 32.1 RDW 16.3 H Plt Count 202 Seg Neutrophils % 66.9 Sodium 136.5 L Potassium 7.7 H* Chloride 116 H Carbon Dioxide 13 L Anion Gap 8 BUN 67 H Creatinine 6.84 H Est GFR ( Amer) 10 L Glucose 94 Calcium 9.8 Magnesium 2.0 Total Bilirubin 0.3 AST 31 Alkaline Phosphatase 69 Total Protein 8.1 Albumin 4.7 Urine Color STRAW Urine Appearance CLEAR Urine pH 5.0 Ur Specific [place] 1.011 Urine Protein NEGATIVE Urine Glucose (UA) NEGATIVE Urine Ketones NEGATIVE Urine Blood SMALL H Urine Nitrite NEGATIVE Ur Leukocyte Esterase NEGATIVE Urine WBC (Auto) 3 Urine RBC (Auto) 1 11/21/19 11/21/19 11/22/19 15:56 22:04 02:04 WBC RBC Hgb Hct MCV MCH MCHC RDW Plt Count Seg Neutrophils % Sodium 137.2 136.0 L 135.6 L Potassium 6.3 H* D 5.5 H 5.4 H Chloride 115 H 111 H 112 H Carbon Dioxide 16 L 17 L 16 L Anion Gap 6 8 8 BUN 65 H 64 H 60 H Creatinine 6.38 H 6.17 H 5.83 H Est GFR ( Amer) 11 L 11 L 12 L Glucose 145 H 123 H 99 Calcium 9.7 9.7 9.4 Magnesium Total Bilirubin AST Alkaline Phosphatase Total Protein Albumin Urine Color Urine Appearance Urine pH Ur Specific [place] Urine Protein Urine Glucose (UA) Urine Ketones Urine Blood Urine Nitrite Ur Leukocyte Esterase Urine WBC (Auto) Urine RBC (Auto) 11/22/19 11/22/19 11/22/19 06:16 06:16 09:54 WBC 3.7 L RBC 2.97 L Hgb 8.2 L Hct 24.8 L MCV 83 MCH 27.6 MCHC 33.2 RDW 15.5 H Plt Count 180 Seg Neutrophils % Sodium 136.5 L 136.0 L Potassium 5.3 H 5.1 H Chloride 111 H 109 H Carbon Dioxide 18 L 20 L Anion Gap 8 7 BUN 58 H 54 H Creatinine 5.65 H 4.97 H Est GFR ( Amer) 12 L 14 L Glucose 97 98 Calcium 9.3 9.3 Magnesium 1.7 Total Bilirubin AST Alkaline Phosphatase Total Protein Albumin Urine Color Urine Appearance Urine pH Ur Specific [place] Urine Protein Urine Glucose (UA) Urine Ketones Urine Blood Urine Nitrite Ur Leukocyte Esterase Urine WBC (Auto) Urine RBC (Auto) 11/21/19 11:58 Troponin I < 0.012 Impressions: Chest X-Ray 11/21/19 12:25 IMPRESSION: No acute process. No significant interval change. Abdomen/Pelvis CT 11/21/19 12:27 IMPRESSION: 1. Marked urinary bladder distention with significant bilateral hydroureteronephrosis likely secondary to markedly enlarged prostate. Recommend urinary decompression. 2. Irregular circumferential bladder wall thickening, likely secondary to chronic outlet obstruction. Findings conveyed to David at 1333 hours on 11/21/2019. Assessment and Plan - Diagnosis (1) [id number] kidney injury Qualifiers: Acute renal failure type: with acute tubular necrosis Chronic kidney disease stage: stage 5, not on chronic dialysis Qualified Code(s): N17.0 - Acute kidney failure with tubular necrosis; N18.5 - Chronic kidney disease, stage 5 Is this a current diagnosis for this admission?: Yes Plan: Resolving with relief of his bladder outlet obstruction and some IV fluids, trending back down nicely towards his baseline (2) BPH with obstruction/lower urinary tract symptoms Is this a current diagnosis for this admission?: Yes Plan: We have resumed his Proscar and Flomax, and he will keep the indwelling Lawson in place until he follows up with urology (3) Bilateral hydronephrosis Is this a current diagnosis for this admission?: Yes Plan: Resolving with relief of bladder outlet obstruction (4) Hyperkalemia Is this a current diagnosis for this admission?: Yes Plan: Nearly completely resolved now, continuing IV fluids (5) HTN (hypertension) Qualifiers: Hypertension type: essential hypertension Qualified Code(s): I10 - Essential (primary) hypertension Is this a current diagnosis for this admission?: Yes Plan: Still little hypertensive, will likely have to adjust his blood pressure medication a bit (6) Metabolic acidosis Is this a current diagnosis for this admission?: Yes Plan: This was due to his renal failure, which is improving as a result of bicarbonate in his fluids and improvement in his renal function - Time Time Spent with patient: 25-34 minutes
[2019-11-22] MEDS ORDERED: DEXTROSE 5%-WATER 1000 ML 1,000 ML with SODIUM BICARBONATE 150 MEQ IV PRN ×2 (21:48)
--- NOTE | 2019-11-22 21:54 | PDOC CONSULTATION ---
Consultation Consult Date: 11/22/19 Provider Consulted: Ziyad VILLASEÑOR Consult reason:: HELEN on CKD 4/5 History of Present Illness Admission Date/PCP: 11/21/19 18:16 [facility] History of Present Illness: TOBY COLLINS is a 63 year old male 63 year old male with a history of hypertensi on, chronic kidney disease stage IV with base creatinine of around 3- plus accompanying hyperkalemia and renal osteodystrophy when last seen in my office in early 2019 and then lost to follow-up, severe non compliance and BPH with outlet obstruction resulting in bilateral hydro since 2017, who has been following with Dr. Moura/urology and has had multiple episodes where he has had temporary placement of Lawson catheter was admitted with history of progressive weakness and cramps and worsening left flank pains. There is no history of any fever or chills. He says the left flank pain which he describes more like neuropathic pain does get worse with movements or just with touch. This been going on for the last 6 months now. No apparent history of shingles. He denies any history of constipation or hematuria. No history of any GI bleeds. No history of any orthostasis. He admits to the fact that he has difficulty in urine voiding. He is known to have BPH with outlet obstruction and bilateral hydronephrosis as early as 2016 but he has been noncompliant in visits with both me and urologist. Subsequently he has lost his job and therefore he has no insurance and he has therefore joined the [facility] now after he was with Dr Webb. Evaluations in the ER revealed that the patient had HELEN with creatinine of 6.8 and the potassium was 7.7 with EKG changes and acidosis with a CO2 of 13. A noncontrasted CT scan showed worsening severe bilateral hydronephrosis and hydr oureter with enlarged bladder compared to earlier CT. He was admitted, had a Lawson catheter placed with very good results of more than a litre of urine and other appropriate treatments were instituted for treatment of his severe hyperkalemia with improvement of his BUN and creatinine as well as his potassium down to 5.4 as of this morning along with his creatinine down to 5.8. Patient says he feels a whole lot better now. Past Medical History Cardiac Medical History: Reports: Hypertension-primary Renal/ Medical History: Reports: Benign Prostatic Hyperplasia, Chronic Kidney Disease Stage IV, Hyperkalemia, Secondary Hyperparathyroidism Psychiatric Medical History: Reports: Depression Hematology Medical History: Reports Anemia of Chronic Kidney Disease Past Surgical History Past Surgical History: Reports: Other Social History Smoking Status: Former Smoker Last Time Smoked: 30 years ago Frequency of Alcohol Use: Rare Drugs: Marijuana Hx Prescription Drug Abuse: No Family History Parental Family History Reviewed: No Children Family History Reviewed: No Sibling(s) Family History Reviewed.: No Medication/Allergy Home Medications: Amlodipine Besylate [Norvasc 10 mg Tablet] 10 mg PO DAILY 11/21/19 Finasteride [Proscar 5 mg Tablet] 5 mg PO DAILY 11/21/19 Tamsulosin HCl [Flomax 0.4 mg Cap.sr] 0.4 mg PO DAILY 11/21/19 Allergies/Adverse Reactions: No Known Allergies Allergy (Verified 11/21/19 12:08) Review of Systems Constitutional: PRESENT: anorexia, fatigue, weakness. ABSENT: chills, fever(s), headache(s), night sweats Nose, Mouth, and Throat: ABSENT: mouth pain, sore throat Cardiovascular: ABSENT: chest pain, dyspnea on exertion, edema, orthropnea, palpitations Respiratory: ABSENT: dyspnea Gastrointestinal: PRESENT: abdominal pain - Chronic left flank pains made worse with movements., nausea. ABSENT: bloating, coffee ground emesis, dysphagia, heartburn, hematochezia, vomiting Genitourinary: PRESENT: difficulty urinating. ABSENT: dysuria, hematuria Musculoskeletal: ABSENT: deformity, joint swelling Integumentary: ABSENT: lesions, pruritus, rash Neurological: ABSENT: abnormal gait, abnormal movements, confusion, convulsions, focal weakness, lack of coordination, paresthesias, syncope Psychiatric: PRESENT: anxiety Hematologic/Lymphatic: ABSENT: easy bleeding, easy bruising Physical Exam Vital Signs: Temp Pulse Resp BP Pulse Ox 98.0 F 66 18 134/84 H 100 11/22/19 19:14 11/22/19 19:14 11/22/19 19:14 11/22/19 19:14 11/22/19 19:14 Intake & Output 11/21/19 11/22/19 11/23/19 06:59 06:59 06:59 Intake Total 0312 1767 Output Total 9296 1325 Balance -563 1102 Weight 68.9 kg General appearance: PRESENT: no acute distress Eye exam: PRESENT: EOMI, PERRLA. ABSENT: scleral icterus Mouth exam: ABSENT: moist Neck exam: ABSENT: lymphadenopathy, meningismus, tenderness, thyromegaly, tracheal deviation Respiratory exam: PRESENT: clear to auscultation tessa. ABSENT: crackles Cardiovascular exam: PRESENT: +S1, +S2 GI/Abdominal exam: PRESENT: normal bowel sounds, soft, tenderness - Some tenderness in the left flank that spreads almost to the anterior in a spinal nerve pattern.. ABSENT: organomegaly Extremities exam: ABSENT: calf tenderness, pedal edema Neurological exam: PRESENT: alert, awake, oriented to person, oriented to place, oriented to time Psychiatric exam: PRESENT: depressed Skin exam: ABSENT: erythema, mottled, rash Results Laboratory Results: 11/22/19 06:16 11/22/19 09:54 11/21/19 11/22/19 11/22/19 22:04 02:04 06:16 WBC 3.7 L RBC 2.97 L Hgb 8.2 L Hct 24.8 L MCV 83 MCH 27.6 MCHC 33.2 RDW 15.5 H Plt Count 180 Sodium 136.0 L 135.6 L Potassium 5.5 H 5.4 H Chloride 111 H 112 H Carbon Dioxide 17 L 16 L Anion Gap 8 8 BUN 64 H 60 H Creatinine 6.17 H 5.83 H Est GFR ( Amer) 11 L 12 L Glucose 123 H 99 Calcium 9.7 9.4 Magnesium 11/22/19 11/22/19 06:16 09:54 WBC RBC Hgb Hct MCV MCH MCHC RDW Plt Count Sodium 136.5 L 136.0 L Potassium 5.3 H 5.1 H Chloride 111 H 109 H Carbon Dioxide 18 L 20 L Anion Gap 8 7 BUN 58 H 54 H Creatinine 5.65 H 4.97 H Est GFR ( Amer) 12 L 14 L Glucose 97 98 Calcium 9.3 9.3 Magnesium 1.7 11/21/19 11:58 Troponin I < 0.012 Impressions: Chest X-Ray 11/21/19 12:25 IMPRESSION: No acute process. No significant interval change. Abdomen/Pelvis CT 11/21/19 12:27 IMPRESSION: 1. Marked urinary bladder distention with significant bilateral hy droureteronephrosis likely secondary to markedly enlarged prostate. Recommend urinary decompression. 2. Irregular circumferential bladder wall thickening, likely secondary to chronic outlet obstruction. Findings conveyed to David at 1333 hours on 11/21/2019. Assessment & Plan - Diagnosis (1) [id number] kidney injury Qualifiers: Acute renal failure type: with acute tubular necrosis Chronic kidney disease stage: stage 5, not on chronic dialysis Qualified Code(s): N17.0 - Acute kidney failure with tubular necrosis; N18.5 - Chronic kidney disease, s tage 5 Is this a current diagnosis for this admission?: Yes Plan: Patient is known to have CKD stage IV in the background of obstructive uropathy secondary to enlarged prostate resulting in bilateral hydronephrosis and hydroureter since 2017. Unfortunately patient has not been compliant with visits especially with the urologist who has had on multiple occasions placed Lawson catheter for decompression. He says he was told about surgery when he was employed but did not go for it. Currently he is out of a job and therefore I am not sure whether surgery would be in the making. He supposed to be seeing Dr. Moura soon however. Patient has now presented with acute decompensation of his renal failure in the current ongoing environment of obstructive uropathy. Unfortunately his potassium was very high but fortunately he responded to temporizing measures. Dialysis could not be instituted because we do not have dialysis in the evening or night time. He seems to be improving with current guidelines. I will increase his fluid rate and see how he responds. No indications for renal replacements at the moment. He needs to follow-up with Dr. Moura/urology and possibly consider towards having surgical treatment of his enlarged prostate to see if there is any hope of resolution of his acute on chronic CKD and escape from initiation of hemodialysis in the near future. (2) BPH with obstruction/lower urinary tract symptoms Is this a current diagnosis for this admission?: Yes (3) Bilateral hydronephrosis Is this a current diagnosis for this admission?: Yes Plan: Unfortunately patient has had a obstructive uropathy for the last 2 to 3 years and has not been compliant in keeping his appointments especially when he was employed. Now he is admitted for further worsening bilateral hydronephrosis and hydroureter in the face of and severely enlarged prostate. He needs to follow- up with Dr. Moura/urology post discharge with a Lawson catheter decompression. (4) Hyperkalemia Is this a current diagnosis for this admission?: Yes Plan: Fortunately has responded to temporizing measures. Advised on proper dietary modifications. We discussed the serious consequences of hypertension including cardiac arrest. (5) Metabolic acidosis Is this a current diagnosis for this admission?: Yes Plan: Currently on IV replacements and will also add on p.o. replacements. (6) Anemia Plan: We will get iron studies and see if he can be replaced with IV iron. Later on obviously he would need erythropoietin replacements. (7) HTN (hypertension) Qualifiers: Hypertension type: essential hypertension Qualified Code(s): I10 - Essential (primary) hypertension Is this a current diagnosis for this admission?: Yes Plan: Presently controlled. Monitor. (8) Flank pain Plan: Left. Description was more indicative of possibly neuropathic pain of shingles.His urine was bland.
[2019-11-22] MEDS ORDERED: SODIUM BICARBONATE 650 MG TABLET PO SCH (22:00)
[2019-11-23] MEDS: DEXTROSE 5%-WATER 1000 ML 1,000 ML with SODIUM BICARBONATE 150 MEQ IV PRN ×2 (01:29)
[2019-11-23] MEDS: HEPARIN SOD (PORCINE) 5,000 UNIT/ML 1 ML VIAL SUBCUT SCH ×2 (05:25→13:23)
[2019-11-23 07:04] LABS: ABSOLUTE RETICS # 0.045 10^6/uL (0.028-0.122); HEMATOCRIT 24.7 % (37.9-51.0); HEMOGLOBIN 8.4 g/dL (13.5-17.0); MEAN CORPUSCULAR HEMOGLOBIN 27.8 pg (27.0-33.4); MEAN CORPUSCULAR VOLUME 82 fl (80-97); PLATELET COUNT 189 10^3/uL (150-450); RED BLOOD COUNT 3.02 10^6/uL (4.35-5.55); RED CELL DISTRIBUTION WIDTH 15.5 % (11.5-14.0); RETICULOCYTE COUNT (AUTO) 1.47 % (0.66-2.85); WHITE BLOOD COUNT 4.1 10^3/uL (4.0-10.5)
[2019-11-23 07:23] LABS: ANION GAP 6 (5-19); BLOOD UREA NITROGEN 50 mg/dL (7-20); CALCIUM 9.1 mg/dL (8.4-10.2); CARBON DIOXIDE 28 mmol/L (22-30); CHLORIDE 101 mmol/L (98-107); GLUCOSE 106 mg/dL (75-110); IRON(TIBC) 80.5 ug/dL (49-181); PHOSPHORUS 3.1 mg/dL (2.5-4.5); POTASSIUM 5.4 mmol/L (3.6-5.0)
[2019-11-23] MEDS: ACETAMINOPHEN 325 MG TABLET PO PRN ×2 (07:38→14:56)
[2019-11-23 08:26] LABS: FOLATE 3.81 ng/mL (>2.76)
[2019-11-23] MEDS ORDERED: NORMAL SALINE 1000 ML 1,000 ML IV PRN (09:39)
[2019-11-23] MEDS ORDERED: PATIROMER 8.4 GM SUSP PACKET PO ONE (10:00)
[2019-11-23] MEDS: FINASTERIDE 5 MG TABLET PO SCH (10:12)
[2019-11-23] MEDS: TAMSULOSIN HCL 0.4 MG CAP.SR.24H PO SCH (10:12)
[2019-11-23] MEDS: AMLODIPINE BESYLATE 10 MG TABLET PO SCH (10:12)
[2019-11-23] MEDS ORDERED: LACTOBACILLUS ACIDOPHILUS 250 MG TAB PO SCH (18:00)
[2019-11-23] MEDS ORDERED: METRONIDAZOLE 500 MG TABLET PO SCH (18:00)
[2019-11-23 18:32] LABS: ANION GAP 9 (5-19); BLOOD UREA NITROGEN 48 mg/dL (7-20); CALCIUM 8.8 mg/dL (8.4-10.2); CARBON DIOXIDE 24 mmol/L (22-30); CHLORIDE 100 mmol/L (98-107); GLUCOSE 129 mg/dL (75-110); POTASSIUM 4.5 mmol/L (3.6-5.0)
[2019-11-23 18:41] VITALS: BP 150/77
--- NOTE | 2019-11-23 18:41 | PDOC DISCHARGE SUMMARY ---
Impression - Admit/DC Date/PCP Admission Date/Primary Care Provider: 11/21/19 18:16 [facility] Discharge Date: 11/23/19 - Discharge Diagnosis (1) [id number] kidney injury Is this a current diagnosis for this admission?: Yes (2) BPH with obstruction/lower urinary tract symptoms Is this a current diagnosis for this admission?: Yes (3) Bilateral hydronephrosis Is this a current diagnosis for this admission?: Yes (4) Hyperkalemia Is this a current diagnosis for this admission?: Yes (5) HTN (hypertension) Is this a current diagnosis for this admission?: Yes (6) Metabolic acidosis Is this a current diagnosis for this admission?: Yes - Additional Information Resuscitation Status: Full Code Discharge Diet: Cardiac Discharge Activity: Slowly Increase Activity Referrals: [facility] [Primary Care Provider] - 11/29/19 3:00 pm KYLIE GARCIA MD [NO [facility] MD] - 11/28/19 9:15 am (Appt. will be in the [place] office.) Home Medications: Amlodipine Besylate [Norvasc 10 mg Tablet] 10 mg PO DAILY 11/21/19 Finasteride [Proscar 5 mg Tablet] 5 mg PO DAILY 11/21/19 Tamsulosin HCl [Flomax 0.4 mg Cap.sr] 0.4 mg PO DAILY 11/21/19 History of Present Illiness History of Present Illness: TOBY COLLINS is a 63 year old male with a history of hypertension, chronic kidney disease, and BPH who presents with history of not feeling well for the past couple of days. He is about 6 or 7 times that he is trying to get on disability, and he said he has had trouble getting his medications. He said he used to see Dr. Webb but he has not seen him in a couple of months. He said he has been going to the [facility]. He said he is only been able to get about 10 doses of his medications at a time because of the cost. He has not been able to take them consistently. He said he has had problems with urinary retention in the past and has followed with Dr. Garcia. He said back in August he had to keep the Lawson catheter in for about 30 days and then it was taken out by Dr. Garcia in the office. He said that he has had incomplete emptying of his bladder whenever he voids. He said he walked over to the office this morning to the [facility] where he was going to get his medications refilled. He said they gave him prescriptions and he was walking over to the pharmacy and he just felt extremely fatigued. He said he has felt like he has had cramps in his lower back. He has brought to the emergency department where his potassium was high and he had peaked T waves on his EKG. His initial potassium was 7.7. He was given bicarbonate, insulin, glucose, and Kayexalate. He was also given a couple of nebulizer treatments. His potassium has come down to 6.3. When they put the Lawson catheter in they got out 1100 mL's of urine. He got a liter of fluids and he has had about an additional 1 L of urine out since then. They called and he said he would see the patient in consultation but does not think the patient needs dialysis at this time. Hospital Course Hospital Course: He responded well to bladder decompression via Lawson catheter and to IV fluids with bicarbonate. We put him back on his blood pressure medication, his Proscar, and his Flomax. He said that he has prescriptions waiting for him at the pharmacy for these medications. His creatinine has trended back down to his baseline. Is the best creatinine he has had documented in this facility in over a year. He will keep the Lawson catheter in until he sees urology. We did a trial today and he was having a hard time urinating with the Lawson out for several hours. Therefore, the Lawson was replaced. His potassium was elevated and he got 2 doses of patiromer which now has his potassium in the normal range. He also has follow-up arranged with the [facility]. His labs and examination were reassuring and he was discharged in stable condition. Physical Exam Vital Signs: Temp Pulse Resp BP Pulse Ox 98.0 F 67 16 147/86 H 100 11/23/19 16:25 11/23/19 16:25 11/23/19 16:25 11/23/19 16:25 11/23/19 16:25 Intake & Output 11/22/19 11/23/19 11/24/19 06:59 06:59 06:59 Intake Total 1887 4059 1249 Output Total 2450 1470 500 Balance -563 1409 749 Weight 68.9 kg 68.1 kg General appearance: PRESENT: no acute distress, cooperative, disheveled Respiratory exam: PRESENT: clear to auscultation tessa, symmetrical, unlabored. ABSENT: accessory muscle use, chest wall tenderness, crackles, prolonged expiratory phase, rhonchi, tachypnea, wheezes Cardiovascular exam: PRESENT: RRR, +S1, +S2 Pulses: PRESENT: normal carotid pulses Vascular exam: PRESENT: normal capillary refill GI/Abdominal exam: PRESENT: normal bowel sounds, soft. ABSENT: distended, guarding, rebound, tenderness Gentrourinary exam: PRESENT: indwelling catheter Extremities exam: ABSENT: clubbing, pedal edema Musculoskeletal exam: PRESENT: normal inspection. ABSENT: deformity Neurological exam: PRESENT: alert, awake, oriented to person, oriented to place, oriented to time, oriented to situation Psychiatric exam: PRESENT: appropriate affect, normal mood Skin exam: PRESENT: dry, warm Results Laboratory Results: WBC 4.1 10^3/uL (4.0-10.5) 11/23/19 06:42 RBC 3.02 10^6/uL (4.35-5.55) L 11/23/19 06:42 Hgb 8.4 g/dL (13.5-17.0) L 11/23/19 06:42 Hct 24.7 % (37.9-51.0) L 11/23/19 06:42 MCV 82 fl (80-97) 11/23/19 06:42 MCH 27.8 pg (27.0-33.4) 11/23/19 06:42 MCHC 34.0 g/dL (32.0-36.0) 11/23/19 06:42 RDW 15.5 % (11.5-14.0) H 11/23/19 06:42 Plt Count 189 10^3/uL (150-450) 11/23/19 06:42 Lymph % (Auto) 19.1 % (13-45) 11/21/19 11:58 [place] % (Auto) 8.3 % (3-13) 11/21/19 11:58 Eos % (Auto) 4.6 % (0-6) 11/21/19 11:58 Baso % (Auto) 1.1 % (0-2) 11/21/19 11:58 Reticulocyte # 0.045 10^6/uL (0.028-0.122) 11/23/19 06:42 Absolute Neuts (auto) 2.5 10^3/uL (1.7-8.2) 11/21/19 11:58 Absolute Lymphs (auto) 0.7 10^3/uL (0.5-4.7) 11/21/19 11:58 Absolute Monos (auto) 0.3 10^3/uL (0.1-1.4) 11/21/19 11:58 Absolute Eos (auto) 0.2 10^3/uL (0.0-0.6) 11/21/19 11:58 Absolute Basos (auto) 0.0 10^3/uL (0.0-0.2) 11/21/19 11:58 Seg Neutrophils % 66.9 % (42-78) 11/21/19 11:58 Retic Count (auto) 1.47 % (0.66-2.85) 11/23/19 06:42 Sodium 133.0 mmol/L (137-145) L 11/23/19 17:38 Potassium 4.5 mmol/L (3.6-5.0) 11/23/19 17:38 Chloride 100 mmol/L (98-107) 11/23/19 17:38 Carbon Dioxide 24 mmol/L (22-30) 11/23/19 17:38 Anion Gap 9 (5-19) 11/23/19 17:38 BUN 48 mg/dL (7-20) H 11/23/19 17:38 Creatinine 4.31 mg/dL (0.52-1.25) H 11/23/19 17:38 Est GFR ( Amer) 17 (>60) L 11/23/19 17:38 Est GFR (MDRD) Non-Af 14 (>60) L 11/23/19 17:38 Glucose 129 mg/dL (75-110) H 11/23/19 17:38 POC Glucose 90 mg/dL (70-110) 11/21/19 12:24 Calcium 8.8 mg/dL (8.4-10.2) 11/23/19 17:38 Phosphorus 3.1 mg/dL (2.5-4.5) 11/23/19 06:42 Magnesium 1.7 mg/dL (1.6-2.3) 11/22/19 06:16 Iron 80.5 ug/dL (49-181) 11/23/19 06:42 TIBC 251 ug/dL (250-450) 11/23/19 06:42 % Saturation 32 % 11/23/19 06:42 Ferritin 165.00 ng/mL (17.9-464.0) 11/23/19 06:42 Total Bilirubin 0.3 mg/dL (0.2-1.3) 11/21/19 11:58 Direct Bilirubin 0.0 mg/dL (0.0-0.4) 11/21/19 11:58 Neonat Total Bilirubin Not Reportable 11/21/19 11:58 Neonat Direct Bilirubin Not Reportable 11/21/19 11:58 Neonat Indirect Bili Not Reportable 11/21/19 11:58 AST 31 U/L (17-59) 11/21/19 11:58 ALT 21 U/L (<50) 11/21/19 11:58 Alkaline Phosphatase 69 U/L (38-126) 11/21/19 11:58 Troponin I < 0.012 ng/mL 11/21/19 11:58 Total Protein 8.1 g/dL (6.3-8.2) 11/21/19 11:58 Albumin 4.7 g/dL (3.5-5.0) 11/21/19 11:58 Vitamin B12 362.0 pg/mL (239-931) 11/23/19 06:42 Folate 3.81 ng/mL (>2.76) 11/23/19 06:42 PTH Intact 363.4 pg/mL (10.0-65.0) H 11/23/19 06:42 Urine Color STRAW 11/21/19 12:46 Urine Appearance CLEAR 11/21/19 12:46 Urine pH 5.0 (5.0-9.0) 11/21/19 12:46 Ur Specific [place] 1.011 11/21/19 12:46 Urine Protein NEGATIVE mg/dL (NEGATIVE) 11/21/19 12:46 Urine Glucose (UA) NEGATIVE mg/dL (NEGATIVE) 11/21/19 12:46 Urine Ketones NEGATIVE mg/dL (NEGATIVE) 11/21/19 12:46 Urine Blood SMALL (NEGATIVE) H 11/21/19 12:46 Urine Nitrite NEGATIVE (NEGATIVE) 11/21/19 12:46 Urine Bilirubin NEGATIVE (NEGATIVE) 11/21/19 12:46 Urine Urobilinogen NEGATIVE mg/dL (<2.0) 11/21/19 12:46 Ur Leukocyte Esterase NEGATIVE (NEGATIVE) 11/21/19 12:46 Urine WBC (Auto) 3 /HPF 11/21/19 12:46 Urine RBC (Auto) 1 /HPF 11/21/19 12:46 Urine Bacteria (Auto) TRACE /HPF 11/21/19 12:46 Urine Mucus (Auto) RARE /LPF 11/21/19 12:46 Urine Ascorbic Acid NEGATIVE (NEGATIVE) 11/21/19 12:46 11/21/19 11:58 Troponin I < 0.012 Impressions: Chest X-Ray 11/21/19 12:25 IMPRESSION: No acute process. No significant interval change. Abdomen/Pelvis CT 11/21/19 12:27 IMPRESSION: 1. Marked urinary bladder distention with significant bilateral hydroureteronephrosis likely secondary to markedly enlarged prostate. Recommend urinary decompression. 2. Irregular circumferential bladder wall thickening, likely secondary to chronic outlet obstruction. Findings conveyed to David at 1333 hours on 11/21/2019. Plan Time Spent: Greater than 30 Minutes Stroke Is this a Stroke Patient?: No Acute Heart Failure - Is this a Heart Failure Patient?: No
== END 2019-11-23 19:22 | disposition home or self-care (01) | DRG 683 ==
LOC: ER 10:56 → EH 18:16 → 3S 20:19
PROVIDERS: ADMIT Family Medicine; ATTEND Family Medicine
DX: N17.9 Acute kidney failure, unspecified (principal); N13.8 Other obstructive and reflux uropathy; E87.2 Acidosis; N40.1 Benign prostatic hyperplasia with lower urinary tract symptoms; E87.5 Hyperkalemia; I12.9 Hypertensive chronic kidney disease with stage 1 through stage 4 chronic kidney disease, or unspecified chronic kidney disease; N18.4 Chronic kidney disease, stage 4 (severe); N25.0 Renal osteodystrophy; N25.81 Secondary hyperparathyroidism of renal origin; F32.9 Major depressive disorder, single episode, unspecified; D63.1 Anemia in chronic kidney disease; Z87.891 Personal history of nicotine dependence; Z79.899 Other long term (current) drug therapy; T50.916A Underdosing of multiple unspecified drugs, medicaments and biological substances, initial encounter; Z91.120 Patient's intentional underdosing of medication regimen due to financial hardship; Z59.7 Insufficient social insurance and welfare support; N13.30 Unspecified hydronephrosis
CPT/HCPCS: 36415; 71045; 74176; 80048; 80053; 81001; 82607; 82728; 82746; 82962; 83540; 83550; 83735; 83970; 84100; 84484; 85025; 85027; 85045; 93005; 93010; 94640; 96361; 96374; 96375; 99285; J0610; J1644; J1815; J3490; J7030; J7060; J7120